=== PATIENT | male | born 1965 | race Caucasian/White ===

== ENCOUNTER 2020-04-11 07:43 | Outpatient (RCR) | payer MEDICARE, SELFPAY | END 2020-06-04 07:51 | disposition home or self-care (01) | LOC: ANHWOC 07:43 | PROVIDERS: PCP Emergency Medicine; Visit Provider Emergency Medicine | DX: I87.2 Venous insufficiency (chronic) (peripheral) (principal); S81.811D Laceration without foreign body, right lower leg, subsequent encounter | CPT/HCPCS: 99201; 99212; G0463 ==

== ENCOUNTER 2020-04-11 10:03 | Inpatient (IN) | payer MEDICARE, SELFPAY ==
--- NOTE | ~2020-04-11 | XR_ITS ---
EXAMINATION: XR foot LT min 3V EXAM DATE: 04/11/2020 11:34 INDICATION: Left foot swelling. TECHNIQUE: Left foot dorsoplantar, lateral and oblique projections obtained and reviewed. There is n o prior study for comparison. FINDINGS: Left metatarsal bones unremarkable. There are small calcaneal spurs. There are no acute fractures or dislocations identified. There is no subcutaneous gas. There is soft tissue swelling ov er the foot. There are no radiopaque foreign bodies. There are no bony erosions identified. IMPRESSION: 1. XR foot LT min 3V exam without acute osseous findings. 2. Soft tissue swelling. Reviewed, dictated and finalized at location B.
--- NOTE | ~2020-04-11 | XR_ITS ---
EXAMINATION: XR chest 1V portable EXAM DATE: 04/11/2020 11:34 INDICATION: Left foot swelling. Altered mental status. TECHNIQUE: Portable AP frontal chest x-ray was obtained. Comparison is made to prior examination from 04/13/2018. FINDINGS: The cardiomediastinal silhouette is prominent but magnified on this AP technique. Low lung volume with some pulmonary vascular and some indistinct reticulation, possible mild bilateral perihil ar edema or infection. Please clinically correlate. No pneumothorax or pleural effusion. There are no osseous abnormalities identified. IMPRESSION: Low lung volume, but possible mild bilateral edema or pneumonia. Reviewed, dictated and finalized at location B.
[2020-04-11 10:07] VITALS: BP 110/69; PULSE 88; RESP 16; TEMP 36.1; O2SAT 94
[2020-04-11] MEDS: SODIUM CHLORIDE 0.9% IV 1,000 ML 999 ML IV CONT ×3 (11:03→13:50)
--- NOTE | 2020-04-11 11:04 | ED.GENADULT ---
HPI - General Adult General Chief complaint: Skin/Abscess/Foreign Body Stated complaint: L LEG CELLULITIS FROM WOUND CARE CENTER Time Seen by Provider: 04/11/20 10:12 Source: patient Mode of arrival: ambulatory Limitations: no limitations History of Present Illness HPI narrative: Patient is a 54-year-old male who presents from wound center for evaluation of cellulitic left leg family notes that the redness and swelling began yesterday patient with chronic wounds to the bilateral lower extremities patient denies any pain family notes he is taking p.o. narcotics patient did fall this morning but denies any injuries related to the fall patient has had similar occurrences in the past followed by wound care family denies any current antibiotic use. Patient on arrival in the room in no distress Related Data Home Medications Medication Instructions Recorded Confirmed Eliquis 5 mg PO BID 09/23/19 09/23/19 alprazolam 1 mg PO BID PRN 09/23/19 09/23/19 aspirin 81 mg PO DAILY 09/23/19 09/23/19 carbidopa-levodopa 1 tablet PO TID 09/23/19 09/23/19 divalproex 250 mg PO DAILY 09/23/19 09/23/19 escitalopram oxalate 20 mg PO DAILY 09/23/19 09/23/19 furosemide 40 mg PO BID 09/23/19 09/23/19 gabapentin 600 mg PO TID 09/23/19 09/23/19 levetiracetam 750 mg PO BID 09/23/19 09/23/19 lovastatin 20 mg PO DAILY 09/23/19 09/23/19 oxycodone [OxyContin] 15 mg PO BID 09/23/19 09/23/19 oxycodone-acetaminophen 1 tablet PO Q6H PRN 09/23/19 09/23/19 pentoxifylline 400 mg PO BID 09/23/19 09/23/19 spironolactone 50 mg PO DAILY 09/23/19 09/23/19 topiramate 25 mg PO BID 09/23/19 09/23/19 Allergies Allergy/AdvReac Type Severity Reaction Status Date / Time No Known Allergies Allergy Verified 09/23/19 14:30 Review of Systems Review of Systems: All systems reviewed & are unremarkable except as noted in HPI and below PMFSH Past Medical History Medical History Anxiety Arthritis Dementia Depression History of DVT (deep vein thrombosis) 04/2019 Myocardial infarction Parkinson disease Seizures Wrist fracture Surgical History Surgical History History of tonsillectomy Social History Social History Smoking packs per day: 1 Smoking cigarettes per day: 20.0 Years smoked: 5 Smoking pack-years: 5.00 Smoking status: Former smoker Tobacco type: cigarettes Second hand tobacco smoke exposure: Yes Alcohol intake: former Substance use: never Substance use type: does not use Gender identity (if verbalized by the patient): Male Spiritual care concerns: No Agree to blood products: Yes Exam Narrative: Exam Narrative: GENERAL: Ill-appearing, obese, and in no acute distress. HEAD: Normocephalic, atraumatic. EYES: PERRLA and EOMI. ENT: Nares clear, no rhinorrhea or epistaxis. Mucous membranes moist. Oropharynx without tonsillar hypertrophy exudate or other lesions. CHEST: Clear to auscultation. No respiratory distress. No wheezes rales or rhonchi HEART: Regular rate and rhythm. No murmur heard. Normal peripheral pulses. ABDOMEN: Soft, nontender, nondistended EXTREMITIES: Normal range of motion. 2+ edema lower extremities SKIN: Warm, dry, and with cellulitic left lower extremity from the foot up to just below the knee that is circumferential erythematous and warm to touch there is some weeping and cracked skin on the feet. NEURO: No focal deficits. Alert and oriented x3. Neurovascularly intact. Capillary refill less than 2 seconds PSYCH: Normal mood and affect. Course Course Emergency Course: Patient in the room at this time resting comfortably with blood work drawn for sepsis given IV antibiotic and fluids in the emergency department and will be placed in hospital to the hospitalist service for continued IV therapy for cellulitis Consultations Consultation #1: Disc
[2020-04-11 11:13] LABS: Basophils Absolute Auto 0.1 K/mm3 (0.0-0.1); Basophils Percent Auto 0.4 % (0.2-1.2); Eosinophils Percent Auto 0.2 % (0-4.4); Hematocrit 37.8 % (42.0-52.0); Hemoglobin 11.7 g/dL (14.0-18.0); Immature Granulocyte Absolute 0.28 K/mm3 (0.00-0.031); Immature Granulocyte Percent A 2.2 % (0-0.5); Lymphocytes Absolute Auto 1.49 K/mm3 (0.9-3.2); Lymphocytes Percent Auto 11.9 % (18.3-44.2); Mean Corpuscular Volume 100.3 fl (80-100); Mean Platelet Volume 8.6 fl (7.4-10.4); Monocytes Absolute Auto 0.9 K/mm3 (0.1-0.6); Monocytes Percent Auto 6.9 % (2.6-8.5); Neutrophils Absolute Auto 9.8 K/mm3 (1.3-6.7); Neutrophils Percent Auto 78.4 % (45.5-73.1); Platelet Count Result 167 k/mm3 (150-375); Red Blood Count 3.77 M/mm3 (4.6-6.20); Red Cell Distribution Width 13.6 % (11.5-14.5); White Blood Count 12.5 K/mm3 (4.5-10.0)
[2020-04-11 11:20] LABS: INR 1.7; Prothrombin Time 19.7 Seconds (11.1-14.7)
[2020-04-11 11:21] LABS: Lactic Acid Reflex 2.6 mmol/L (0.7-2.1); Magnesium 2.2 mg/dL (1.6-2.3); Partial Thromboplastin Time 33.2 SECONDS (22.3-36.8); Phosphorus 2.8 mg/dL (2.5-4.5)
[2020-04-11 11:26] LABS: Beta-Hydroxybutyrate/Acetoacetate 0.05 mmol/L (0.02-0.27)
[2020-04-11 11:54] LABS: Alanine Aminotransferase 9 U/L (4-50); Albumin Level 3.8 g/dL (3.5-5.1); Alkaline Phosphatase 163 U/L (38-126); Aspartate Amino Transferase 23 U/L (17-59); Blood Urea Nitrogen 15 mg/dL (9-20); CRP 25.2 mg/dL (<1.0); Calcium 8.9 mg/dL (8.4-10.2); Carbon Dioxide 35 mmol/L (22-30); Chloride 90 mmol/L (98-107); Estimated CRCL calculation 97 ml/min; Estimated Glomerular Filt Rate > 60; Glucose 131 mg/dL (75-110); Potassium 3.6 mmol/L (3.4-5.0); Sodium 133 mmol/L (137-145)
[2020-04-11 13:43] VITALS: BP 96/74; PULSE 89; RESP 16
--- NOTE | 2020-04-11 13:47 | ADMGEN ---
This patient, Giuseppe Santana, was admitted to Medical Room 341-01. Patient/family oriented to hospital policies and general routines including ID bracelet, bed and alarms, visiting hours, pain management, procedures, bathroom and other care routines, personal items, smoking policy, room service/diet, and visiting hours. Valuables list has been completed. Information on how to activate the Rapid Response Team has been discussed. Patient/Family are encouraged to report perceived risks to care and to ask questions if they do not understand what they are told or what they should do.
[2020-04-11 13:56] VITALS: BP 93/53; PULSE 84; RESP 18; TEMP 36.8; O2SAT 92; BMI 33.3
[2020-04-11 14:03] LABS: Reflex Lactic Acid Yes or No Add Lactic
[2020-04-11 14:46] LABS: Lactic Acid 1.6 mmol/L (0.7-2.1)
[2020-04-11] MEDS: LACTATED RINGERS 1,000 ML 125 ML IV CONT (15:01)
[2020-04-11 17:11] LABS: Add Urine Microscopic? YES; Appearance Urine Clear (Clear); Bacteria Urine Trace /hpf; Bilirubin Urine Negative (Negative); Blood Urine Negative (Negative); Color Urine Yellow (Yellow); Glucose Urine UA Negative (Negative); Hyaline Casts Urine 15-19 /lpf; Ketones Urine Negative (Negative); Leukocyte Esterase Ur Negative LEU/UL (Negative); Mucus Urine Rare /lpf; Nitrate Urine Negative (Negative); Protein Urine Negative (Negative); Specific Grav Ur 1.017 (1.001-1.035); Squamous Epithelial Cell Urine Occasional /hpf (Few); WBC Urine 0-3 /hpf
--- NOTE | 2020-04-11 20:00 | PM.IMHP ---
H&P: HPI History of Present Illness Chief complaint: Suspected left leg cellulitis. 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 He has chronic lower extremity wounds and today his wound nurse felt that his left leg was likely infected due to worsening edema and erythema and he is being admitted for treatment of cellulitis. At the time of my evaluation, the patient himself feels in his usual state of health and has no complaints except for his chronic back pain and he is asking for his oxycodone. He does mention that earlier today he fell down on to his knees but he sustained no injuries, specifically denying head trauma and loss of consciousness. He states it was purely a mechanical fall. A denture waxer that comes to the home each day a thought that perhaps he seemed a bit more confused than his baseline and was not following commands, but he seems at his baseline at this time. He denies fever, chills, and sweats. No nausea or vomiting. He denies chest pain shortness of breath. Review of Systems Review of Systems: Narrative: Twelve systems were reviewed with pertinent positives and negatives as per HPI. He denies cold and flu symptoms. No cough or shortness of breath. No recent travel or sick contacts. Except as documented, all other systems were reviewed and are negative. [facility] Past Medical History Medical History (Updated 04/11/20 @ 22:27 by Nirmala Barone PA-C) Arthritis Chronic pain syndrome Chronic seasonal allergic rhinitis Current use of nursing home anticoagulation Deep vein thrombosis of right lower limb (~04/2019) Extensive, occlusive DVT from the right common femoral vein through the peroneal and posterior tibial veins. Attempted angioplasty was unsuccessful and he was transferred to [place] for further and intervention. Now on long-term anticoagulation with Eliquis. Dementia Depression with anxiety Impetigo (~09/2019) Left thyroid nodule Noted on CT in April 2019. 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 Parkinson disease Seizures Traumatic brain injury Wrist fracture Surgical History Surgical History (Updated 04/11/20 @ 15:57 by Nirmala Barone PA-C) History of mastoidectomy With resultant mild, chronic hearing loss. History of tonsillectomy Family History Family History Mother Cervical cancer Skin cancer Social History Social History (Updated 04/11/20 @ 22:15 by Nirmala Barone PA-C) Social History: The patient lives in his own home in [place]. He ambulates with a walker and has a friend come to the house daily to help with chores, etc. He smoked just about a pack of cigarettes per day since he was a teenager and now smokes maybe a few cigarettes a day. No alcohol or illicit substance use. He designates his friend, Maryse Garcia, as his surrogate decision maker and he wishes to be a full code. Smoking packs per day: 1 Smoking cigarettes per day: 20.0 Second hand tobacco smoke exposure: Yes Gender identity (if verbalized by the patient): Male Spiritual care concerns: No Agree to blood products: Yes Meds Home Medications and Allergies Home Medications Medication Instructions Recorded Confirmed Type Eliquis 5 mg PO BID 09/23/19 04/11/20 History alprazolam 1 mg PO BID PRN 09/23/19 04/11/20 History aspirin 81 mg PO DAILY 09/23/19 04/11/20 History carbidopa-levodopa 1 tablet PO TID 09/23/19 04/11/20 History divalpr
[2020-04-11 22:00] VITALS: BP 100/58; PULSE 73; RESP 18; TEMP 37.3; O2SAT 96
[2020-04-11] MEDS: levETIRAcetam 250 MG TABLET 750 MG PO (22:35)
[2020-04-11] MEDS: CARBIDOPA/LEVODOPA 25/250 MG TABLET 1 TABLET PO (22:36)
[2020-04-11] MEDS: LOVASTATIN 20 MG TABLET PO (22:36)
[2020-04-11] MEDS: TOPIRAMATE 25 MG TABLET PO (22:36)
[2020-04-11] MEDS: GABAPENTIN 300 MG CAPSULE PO (22:37)
[2020-04-11] MEDS: PENTOXIFYLLINE 400 MG TABCR PO (22:37)
[2020-04-11] MEDS: ALPRAZolam 0.5 MG TABLET 1 MG PO (22:37)
[2020-04-11] MEDS: APIXABAN 5 MG TABLET PO (22:37)
[2020-04-11] MEDS: DIVALPROEX SODIUM 250 MG TABEC PO (22:37)
[2020-04-11] MEDS: FAMOTIDINE 20 MG/2 ML VIAL IV PUSH (22:38)
[2020-04-11] MEDS: oxyCODONE/ACETAMINOPHEN 5-325 MG TABLET 1 TABLET PO (22:38)
[2020-04-11 23:00] VITALS: PULSE 73; RESP 18; O2SAT 96
[2020-04-11 23:10] LABS: Blood Urea Nitrogen 12 mg/dL (9-20); Calcium 8.3 mg/dL (8.4-10.2); Carbon Dioxide 33 mmol/L (22-30); Chloride 97 mmol/L (98-107); Estimated CRCL calculation 115 ml/min; Estimated Glomerular Filt Rate > 60; Glucose 87 mg/dL (75-110); Potassium 3.5 mmol/L (3.4-5.0); Sodium 136 mmol/L (137-145)
[2020-04-12 05:36] LABS: Basophils Absolute Auto 0.1 K/mm3 (0.0-0.1); Basophils Percent Auto 0.6 % (0.2-1.2); Eosinophils Absolute Auto 0.1 K/mm3 (0-0.3); Eosinophils Percent Auto 1.3 % (0-4.4); Hematocrit 35.8 % (42.0-52.0); Hemoglobin 10.7 g/dL (14.0-18.0); Immature Granulocyte Absolute 0.23 K/mm3 (0.00-0.031); Immature Granulocyte Percent A 2.5 % (0-0.5); Lymphocytes Absolute Auto 2.07 K/mm3 (0.9-3.2); Lymphocytes Percent Auto 22.1 % (18.3-44.2); Mean Corpuscular HGB Conc 29.9 g/dl (32-36); Mean Corpuscular Hemoglobin 30.4 pg (26-34); Mean Corpuscular Volume 101.7 fl (80-100); Mean Platelet Volume 8.8 fl (7.4-10.4); Monocytes Absolute Auto 0.8 K/mm3 (0.1-0.6); Monocytes Percent Auto 8.5 % (2.6-8.5); Neutrophils Absolute Auto 6.1 K/mm3 (1.3-6.7); Platelet Count Result 154 k/mm3 (150-375); Red Blood Count 3.52 M/mm3 (4.6-6.20); Red Cell Distribution Width 13.9 % (11.5-14.5); White Blood Count 9.4 K/mm3 (4.5-10.0)
[2020-04-12 05:49] LABS: Blood Urea Nitrogen 10 mg/dL (9-20); Calcium 8.2 mg/dL (8.4-10.2); Carbon Dioxide 31 mmol/L (22-30); Chloride 96 mmol/L (98-107); Estimated CRCL calculation 129 ml/min; Estimated Glomerular Filt Rate > 60; Glucose 107 mg/dL (75-110); Potassium 3.6 mmol/L (3.4-5.0); Sodium 133 mmol/L (137-145)
[2020-04-12 06:00] VITALS: BP 99/57; PULSE 63; RESP 18; TEMP 36.2; O2SAT 98
[2020-04-12 06:09] LABS: Valproic Acid 53.4 ug/mL (50-120)
[2020-04-12] MEDS: ASPIRIN 81 MG CHEWABLE TABLET PO (08:43)
[2020-04-12] MEDS: GABAPENTIN 300 MG CAPSULE PO ×3 (08:43→17:00)
[2020-04-12] MEDS: ESCITALOPRAM OXALATE 10 MG TABLET 20 MG PO (08:43)
[2020-04-12] MEDS: APIXABAN 5 MG TABLET PO ×2 (08:43→17:00)
[2020-04-12] MEDS: DIVALPROEX SODIUM 250 MG TABEC PO ×2 (08:43→17:00)
[2020-04-12] MEDS: levETIRAcetam 250 MG TABLET 750 MG PO ×2 (08:43→17:00)
[2020-04-12] MEDS: MUPIROCIN 2% OINT 22 GM TUBE 1 APPLIC TOPICAL ×2 (08:43→20:48)
[2020-04-12] MEDS: PENTOXIFYLLINE 400 MG TABCR PO ×2 (08:43→17:00)
[2020-04-12] MEDS: FAMOTIDINE 20 MG/2 ML VIAL IV PUSH ×2 (08:44→20:48)
[2020-04-12] MEDS: CARBIDOPA/LEVODOPA 25/250 MG TABLET 1 TABLET PO ×3 (08:44→17:00)
--- NOTE | 2020-04-12 13:00 | P.PNIM_ITS ---
Progress Note: A&P Assessment and Plan (1) Sepsis: Code(s): A41.9 - Sepsis, unspecified organism Status: Acute Assessment and Plan: Present on admission and supported by leukocytosis and elevated lactic acid le katarina. Leukocytosis resolved today; lactic acid resolved normalized with IVF. Blood pressures are also a bit soft, but it appears that it is not unusual for them to be in the low 100 systolic. 99 sys this morning. Blood cultures negative to date * Plan to treat cellulitis with antibiotics as below (2) Left leg cellulitis: Code(s): L03.116 - Cellulitis of left lower limb Status: Acute Assessment and Plan: He has been started on Ancef and vancomycin. Wound/drainage cultures pending. Clinically this appear to be improving with description from admission H&P. Patient agrees this is improving * Contineu IV ancef and vanc; await culture results. * Encourage elevation of left leg. * Wound nurse consult appreciated. (3) Hyponatremia: Code(s): E87.1 - Hypo-osmolality and hyponatremia Status: Acute Assessment and Plan: He received 2 liters IV fluids in the emergency department. Na 133 today, sligh tly lower. 136 in September * Will trend tomorrow * Encourage PO intake * Will hold furosemide and spironolactone at this time. (4) Dementia: Code(s): F03.90 - Unspecified dementia without behavioral disturbance Status: Acute Assessment and Plan: * Related to history of traumatic brain injury and Parkinson. * He seems to be at baseline. (5) Parkinson disease: Code(s): G20 - Parkinson's disease Status: Acute Assessment and Plan: * Continue carbidopa-levodopa. (6) Seizures: Code(s): R56.9 - Unspecified convulsions Status: Acute Assessment and Plan: * Continue levetiracetam and divalproex. (7) Chronic pain syndrome: Code(s): G89.4 - Chronic pain syndrome Status: Acute Assessment and Plan: * Continue oxycodone and gabapentin. (8) Depression with anxiety: Code(s): F41.8 - Other specified anxiety disorders Status: Acute Assessment and Plan: * Continue escitalopram and alprazolam as needed. (9) Current use of rn long term care anticoagulation: Code(s): Z79.01 - rn long term care (current) use of anticoagulants Status: Acute Assessment and Plan: * On Eliquis for history of DVT. 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 Patient states he is feeling well today. He thinks that his swelling and redness has improved today. Otherwise has no complaints. Denies f/c/s, headaches, dizziness, lightheadedness, cp/palpitations, sob/cough, n/v/d/c, abd pain, changes in BMs, dysuria, hematuria, cloudy urine Review of Systems
--- NOTE | 2020-04-12 13:00 | PM.IMPN ---
Progress Note: A&P Assessment and Plan (1) Sepsis: Code(s): A41.9 - Sepsis, unspecified organism Status: Acute Assessment and Plan: Present on admission and supported by leukocytosis and elevated lactic acid level. Leukocytosis resolved today; lactic acid resolved normalized with IVF. Blood pressures are also a bit soft, but it appears that it is not unusual for them to be in the low 100 systolic. 99 sys this morning. Blood cultures negative to date Plan to treat cellulitis with antibiotics as below (2) Left leg cellulitis: Code(s): L03.116 - Cellulitis of left lower limb Status: Acute Assessment and Plan: He has been started on Ancef and vancomycin. Wound/drainage cultures pending. Clinically this appear to be improving with description from admission H&P. Patient agrees this is improving Contineu IV ancef and vanc; await culture results. Encourage elevation of left leg. Wound nurse consult appreciated. (3) Hyponatremia: Code(s): E87.1 - Hypo-osmolality and hyponatremia Status: Acute Assessment and Plan: He received 2 liters IV fluids in the emergency department. Na 133 today, slightly lower. 136 in September Will trend tomorrow Encourage PO intake Will hold furosemide and spironolactone at this time. (4) Dementia: Code(s): F03.90 - Unspecified dementia without behavioral disturbance Status: Acute Assessment and Plan: Related to history of traumatic brain injury and Parkinson. He seems to be at baseline. (5) Parkinson disease: Code(s): G20 - Parkinson's disease Status: Acute Assessment and Plan: Continue carbidopa-levodopa. (6) Seizures: Code(s): R56.9 - Unspecified convulsions Status: Acute Assessment and Plan: Continue levetiracetam and divalproex. (7) Chronic pain syndrome: Code(s): G89.4 - Chronic pain syndrome Status: Acute Assessment and Plan: Continue oxycodone and gabapentin. (8) Depression with anxiety: Code(s): F41.8 - Other specified anxiety disorders Status: Acute Assessment and Plan: Continue escitalopram and alprazolam as needed. (9) Current use of half-way anticoagulation: Code(s): Z79.01 - [facility] (current) use of anticoagulants Status: Acute Assessment and Plan: On Eliquis for history of DVT. 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 Patient states he is feeling well today. He thinks that his swelling and redness has improved today. Otherwise has no complaints. Denies f/c/s, headaches, dizziness, lightheadedness, cp/palpitations, sob/cough, n/v/d/c, abd pain, changes in BMs, dysuria, hematuria, cloudy urine Review of Systems Review of Systems: All systems reviewed & are unremarkable except as noted in HPI and below Exam Narrative: Exam Narrative: Patient is lying in semi-gutirerez's position with right leg hanging off the bed Const: General: cooperative, comfortable, no acute distress, well developed, alert and ill appearing chronically Nutritional Appearance: well nourished and obese Orientation/consciousness: patient oriented x3 HENMT:
[2020-04-12 14:00] VITALS: BP 115/72; PULSE 66; RESP 18; TEMP 36.1; O2SAT 100
[2020-04-12] MEDS: TOPIRAMATE 25 MG TABLET PO (17:00)
[2020-04-12] MEDS: LOVASTATIN 20 MG TABLET PO (17:00)
[2020-04-12 21:00] VITALS: BP 101/76; PULSE 72; RESP 14; TEMP 36.1; O2SAT 100
[2020-04-12] MEDS: ALPRAZolam 0.5 MG TABLET 1 MG PO (22:05)
[2020-04-13 05:31] VITALS: BP 96/58; PULSE 60; RESP 14; TEMP 36.3; O2SAT 97
[2020-04-13 06:26] LABS: Hematocrit 33.1 % (42.0-52.0); Hemoglobin 10.1 g/dL (14.0-18.0); Mean Corpuscular HGB Conc 30.5 g/dl (32-36); Mean Corpuscular Hemoglobin 30.9 pg (26-34); Mean Corpuscular Volume 101.2 fl (80-100); Mean Platelet Volume 8.9 fl (7.4-10.4); Platelet Count Result 139 k/mm3 (150-375); Red Blood Count 3.27 M/mm3 (4.6-6.20); Red Cell Distribution Width 13.9 % (11.5-14.5); White Blood Count 6.7 K/mm3 (4.5-10.0)
[2020-04-13 06:46] LABS: Blood Urea Nitrogen 11 mg/dL (9-20); Carbon Dioxide 26 mmol/L (22-30); Chloride 101 mmol/L (98-107); Estimated CRCL calculation 129 ml/min; Estimated Glomerular Filt Rate > 60; Glucose 137 mg/dL (75-110); Potassium 3.8 mmol/L (3.4-5.0); Sodium 134 mmol/L (137-145)
[2020-04-13] MEDS: ASPIRIN 81 MG CHEWABLE TABLET PO (09:47)
[2020-04-13] MEDS: APIXABAN 5 MG TABLET PO ×2 (09:47→17:34)
[2020-04-13] MEDS: ESCITALOPRAM OXALATE 10 MG TABLET 20 MG PO (09:48)
[2020-04-13] MEDS: CARBIDOPA/LEVODOPA 25/250 MG TABLET 1 TABLET PO ×3 (09:48→17:34)
[2020-04-13] MEDS: DIVALPROEX SODIUM 250 MG TABEC PO ×2 (09:48→17:34)
[2020-04-13] MEDS: levETIRAcetam 250 MG TABLET 750 MG PO ×2 (09:48→17:34)
[2020-04-13] MEDS: FAMOTIDINE 20 MG/2 ML VIAL IV PUSH ×2 (09:48→20:20)
[2020-04-13] MEDS: GABAPENTIN 300 MG CAPSULE PO ×3 (09:48→17:34)
[2020-04-13] MEDS: MUPIROCIN 2% OINT 22 GM TUBE 1 APPLIC TOPICAL ×2 (09:49→20:20)
[2020-04-13] MEDS: PENTOXIFYLLINE 400 MG TABCR PO ×2 (09:49→17:35)
[2020-04-13 10:03] LABS: Vancomycin Trough 14.8 ug/mL (10.0-20.0)
--- NOTE | 2020-04-13 14:30 | P.PNIM_ITS ---
Progress Note: A&P Assessment and Plan (1) Sepsis: Code(s): A41.9 - Sepsis, unspecified organism Status: Acute Assessment and Plan: Present on admission and supported by leukocytosis and elevated lactic acid le katarina. Leukocytosis resolved yesterday; lactic acid resolved normalized with IVF. Blood pressures are also a bit soft, but it appears that it is not unusual for them to be in the low 100 systolic. 96 sys this morning. Blood cultures negative to date * Plan to treat cellulitis with antibiotics as below (2) Left leg cellulitis: Code(s): L03.116 - Cellulitis of left lower limb Status: Acute Assessment and Plan: He has been started on Ancef and vancomycin. Wound/drainage cultures pending. Clinically this appear to be improving on exam compared to yesterday, but still significant erythema/warmth to the left lower leg. * Contineu IV ancef and vanc; await culture results. * Encourage elevation of left leg. * Wound nurse consult appreciated. (3) Hyponatremia: Code(s): E87.1 - Hypo-osmolality and hyponatremia Status: Acute Assessment and Plan: He received 2 liters IV fluids in the emergency department. Na 134 today, improved. 136 in September * Will trend tomorrow * Encourage PO intake * Will hold furosemide and spironolactone at this time. (4) Dementia: Code(s): F03.90 - Unspecified dementia without behavioral disturbance Status: Acute Assessment and Plan: * Related to history of traumatic brain injury and Parkinson. * He seems to be at baseline. (5) Parkinson disease: Code(s): G20 - Parkinson's disease Status: Acute Assessment and Plan: * Continue carbidopa-levodopa. (6) Seizures: Code(s): R56.9 - Unspecified convulsions Status: Acute Assessment and Plan: * Continue levetiracetam and divalproex. (7) Chronic pain syndrome: Code(s): G89.4 - Chronic pain syndrome Status: Acute Assessment and Plan: * Continue oxycodone and gabapentin. (8) Depression with anxiety: Code(s): F41.8 - Other specified anxiety disorders Status: Acute Assessment and Plan: * Continue escitalopram and alprazolam as needed. (9) Current use of [facility] anticoagulation: Code(s): Z79.01 - halfway (current) use of anticoagulants Status: Acute Assessment and Plan: * On Eliquis for history of DVT. Subjective Date/time seen: 04/13/20 14:30 Interval history: Patient is a 54 yo M with history of traumatic brain injury r esulting in premature Parkinson's and dementia, seizure disorder, DVT on long- term anticoagulation, depression, anxiety, and chronic pain syndrome on long- term opioid therapy who is here for treatment of left lower leg cellulitis. Patient states he is feeling well today. He thinks that his swelling and redness has improved again today; pain improved in LLE. He is wishing to leave but is agreeable to staying after explaining the importance of IV antibiotics. Otherwise has no complaints. Denies f/c/s, headaches, dizz
--- NOTE | 2020-04-13 14:30 | PM.IMPN ---
Progress Note: A&P Assessment and Plan (1) Sepsis: Code(s): A41.9 - Sepsis, unspecified organism Status: Acute Assessment and Plan: Present on admission and supported by leukocytosis and elevated lactic acid level. Leukocytosis resolved yesterday; lactic acid resolved normalized with IVF. Blood pressures are also a bit soft, but it appears that it is not unusual for them to be in the low 100 systolic. 96 sys this morning. Blood cultures negative to date Plan to treat cellulitis with antibiotics as below (2) Left leg cellulitis: Code(s): L03.116 - Cellulitis of left lower limb Status: Acute Assessment and Plan: He has been started on Ancef and vancomycin. Wound/drainage cultures pending. Clinically this appear to be improving on exam compared to yesterday, but still significant erythema/warmth to the left lower leg. Contineu IV ancef and vanc; await culture results. Encourage elevation of left leg. Wound nurse consult appreciated. (3) Hyponatremia: Code(s): E87.1 - Hypo-osmolality and hyponatremia Status: Acute Assessment and Plan: He received 2 liters IV fluids in the emergency department. Na 134 today, improved. 136 in September Will trend tomorrow Encourage PO intake Will hold furosemide and spironolactone at this time. (4) Dementia: Code(s): F03.90 - Unspecified dementia without behavioral disturbance Status: Acute Assessment and Plan: Related to history of traumatic brain injury and Parkinson. He seems to be at baseline. (5) Parkinson disease: Code(s): G20 - Parkinson's disease Status: Acute Assessment and Plan: Continue carbidopa-levodopa. (6) Seizures: Code(s): R56.9 - Unspecified convulsions Status: Acute Assessment and Plan: Continue levetiracetam and divalproex. (7) Chronic pain syndrome: Code(s): G89.4 - Chronic pain syndrome Status: Acute Assessment and Plan: Continue oxycodone and gabapentin. (8) Depression with anxiety: Code(s): F41.8 - Other specified anxiety disorders Status: Acute Assessment and Plan: Continue escitalopram and alprazolam as needed. (9) Current use of [facility] anticoagulation: Code(s): Z79.01 - intermediate (current) use of anticoagulants Status: Acute Assessment and Plan: On Eliquis for history of DVT. 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 Patient states he is feeling well today. He thinks that his swelling and redness has improved again today; pain improved in LLE. He is wishing to leave but is agreeable to staying after explaining the importance of IV antibiotics. Otherwise has no complaints. Denies f/c/s, headaches, dizziness, lightheadedness, cp/palpitations, sob/cough, n/v/d/c, abd pain, changes in BMs, dysuria, hematuria, cloudy urine Review of Systems Review of Systems: All systems reviewed & are unremarkable except as noted in HPI and below Exam Narrative: Exam Narrative: Patient is lying in semi-gutierrez's position Const: General: cooperative, comfortable, no acute distress, well developed, alert and ill appearing chron
[2020-04-13] MEDS: ALPRAZolam 0.5 MG TABLET 1 MG PO (14:51)
[2020-04-13] MEDS: oxyCODONE/ACETAMINOPHEN 5-325 MG TABLET 1 TABLET PO ×2 (14:51→22:57)
[2020-04-13 15:12] VITALS: BP 108/61; PULSE 68; RESP 14; TEMP 36.8; O2SAT 98
[2020-04-13] MEDS: LOVASTATIN 20 MG TABLET PO (17:35)
[2020-04-13] MEDS: TOPIRAMATE 25 MG TABLET PO (17:35)
[2020-04-13 20:15] VITALS: BP 113/70; PULSE 62; RESP 14; TEMP 36.5; O2SAT 98
[2020-04-14 04:41] VITALS: BP 111/75; PULSE 60; RESP 16; TEMP 36.4; O2SAT 100
[2020-04-14] MEDS: oxyCODONE/ACETAMINOPHEN 5-325 MG TABLET 1 TABLET PO (06:02)
[2020-04-14] MEDS: ALPRAZolam 0.5 MG TABLET 1 MG PO (06:02)
[2020-04-14 06:54] LABS: Hematocrit 37.2 % (42.0-52.0); Hemoglobin 11.4 g/dL (14.0-18.0); Mean Corpuscular HGB Conc 30.6 g/dl (32-36); Mean Corpuscular Volume 101.1 fl (80-100); Mean Platelet Volume 8.6 fl (7.4-10.4); Platelet Count Result 169 k/mm3 (150-375); Red Blood Count 3.68 M/mm3 (4.6-6.20); White Blood Count 6.2 K/mm3 (4.5-10.0)
[2020-04-14 07:21] LABS: Blood Urea Nitrogen 13 mg/dL (9-20); CRP 4.6 mg/dL (<1.0); Calcium 8.2 mg/dL (8.4-10.2); Carbon Dioxide 29 mmol/L (22-30); Chloride 100 mmol/L (98-107); Estimated CRCL calculation 129 ml/min; Estimated Glomerular Filt Rate > 60; Glucose 106 mg/dL (75-110); Magnesium 2.1 mg/dL (1.6-2.3); Sodium 134 mmol/L (137-145)
[2020-04-14] MEDS: APIXABAN 5 MG TABLET PO (08:15)
[2020-04-14] MEDS: levETIRAcetam 250 MG TABLET 750 MG PO (08:15)
[2020-04-14] MEDS: ESCITALOPRAM OXALATE 10 MG TABLET 20 MG PO (08:15)
[2020-04-14] MEDS: CARBIDOPA/LEVODOPA 25/250 MG TABLET 1 TABLET PO (08:15)
[2020-04-14] MEDS: GABAPENTIN 300 MG CAPSULE PO (08:16)
[2020-04-14] MEDS: DIVALPROEX SODIUM 250 MG TABEC PO (08:16)
[2020-04-14] MEDS: ASPIRIN 81 MG CHEWABLE TABLET PO (08:16)
[2020-04-14] MEDS: FAMOTIDINE 20 MG/2 ML VIAL IV PUSH (08:16)
[2020-04-14] MEDS: PENTOXIFYLLINE 400 MG TABCR PO (08:16)
[2020-04-14 08:36] VITALS: PULSE 60; RESP 16; O2SAT 100
--- NOTE | 2020-04-14 09:57 | P.DS_ITS ---
DS: Admitting Diagnosis Admitting Diagnosis Admitting Diagnosis: Sepsis, unspecified organism DS: Discharge Diagnosis Discharge Diagnosis (1) Sepsis: Code(s): A41.9 - Sepsis, unspecified organism Status: Acute Assessment and Plan: Present on admission and supported by leukocytosis and elevated lactic acid lev el. Leukocytosis resolved on 04/12; lactic acid resolved normalized with IVF. Blood pressures are also a bit soft, but it appears that it is not unusual for them to be in the low 100 systolic. 111 sys this morning. Blood cultures negative to date. Called [facility] and aerobic bottle grew normal skin ralph and was finalized and anaerobic bottle is negative to date * Plan to treat cellulitis with antibiotics as below (2) Left leg cellulitis: Code(s): L03.116 - Cellulitis of left lower limb Status: Acute Assessment and Plan: He has been started on Ancef and vancomycin. Wound/drainage cultures pending. Clinically this appear to be improving on exam compared to previous days. * Discharge today with f/u with PCP in 1-2 weeks * IV ancef and vanc during stay * Will do Keflex and doxy through 04/20 given extent of cellulitis * Encourage elevation of left leg. * Wound nurse consult appreciated. Follow up with WC (3) Hyponatremia: Code(s): E87.1 - Hypo-osmolality and hyponatremia Status: Acute Assessment and Plan: He received 2 liters IV fluids in the emergency department. Na 134 today, stable. 136 in September * BMP in 1 week * Encourage PO intake * Will resume furosemide and spironolactone at discharge * F/u with PCP (4) Dementia: Code(s): F03.90 - Unspecified dementia without behavioral disturbance Status: Acute Assessment and Plan: * Related to history of traumatic brain injury and Parkinson. * He seems to be at baseline. (5) Parkinson disease: Code(s): G20 - Parkinson's disease Status: Acute Assessment and Plan: * Continue carbidopa-levodopa. (6) Seizures: Code(s): R56.9 - Unspecified convulsions Status: Acute Assessment and Plan: * Continue levetiracetam and divalproex. (7) Chronic pain syndrome: Code(s): G89.4 - Chronic pain syndrome Status: Acute Assessment and Plan: * Continue oxycodone and gabapentin. (8) Depression with anxiety: Code(s): F41.8 - Other specified anxiety disorders Status: Acute Assessment and Plan: * Continue escitalopram and alprazolam as needed. (9) Current use of half-way anticoagulation: Code(s): Z79.01 - long term care social worker (current) use of anticoagulants Status: Acute Assessment and Plan: * On Eliquis for history of DVT. 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
--- NOTE | 2020-04-14 09:57 | PM.DS ---
DS: Admitting Diagnosis Admitting Diagnosis Admitting Diagnosis: Sepsis, unspecified organism DS: Discharge Diagnosis Discharge Diagnosis (1) Sepsis: Code(s): A41.9 - Sepsis, unspecified organism Status: Acute Assessment and Plan: Present on admission and supported by leukocytosis and elevated lactic acid level. Leukocytosis resolved on 04/12; lactic acid resolved normalized with IVF. Blood pressures are also a bit soft, but it appears that it is not unusual for them to be in the low 100 systolic. 111 sys this morning. Blood cultures negative to date. Called [facility] and aerobic bottle grew normal skin ralph and was finalized and anaerobic bottle is negative to date Plan to treat cellulitis with antibiotics as below (2) Left leg cellulitis: Code(s): L03.116 - Cellulitis of left lower limb Status: Acute Assessment and Plan: He has been started on Ancef and vancomycin. Wound/drainage cultures pending. Clinically this appear to be improving on exam compared to previous days. Discharge today with f/u with PCP in 1-2 weeks IV ancef and vanc during stay Will do Keflex and doxy through 04/20 given extent of cellulitis Encourage elevation of left leg. Wound nurse consult appreciated. Follow up with WC (3) Hyponatremia: Code(s): E87.1 - Hypo-osmolality and hyponatremia Status: Acute Assessment and Plan: He received 2 liters IV fluids in the emergency department. Na 134 today, stable. 136 in September BMP in 1 week Encourage PO intake Will resume furosemide and spironolactone at discharge F/u with PCP (4) Dementia: Code(s): F03.90 - Unspecified dementia without behavioral disturbance Status: Acute Assessment and Plan: Related to history of traumatic brain injury and Parkinson. He seems to be at baseline. (5) Parkinson disease: Code(s): G20 - Parkinson's disease Status: Acute Assessment and Plan: Continue carbidopa-levodopa. (6) Seizures: Code(s): R56.9 - Unspecified convulsions Status: Acute Assessment and Plan: Continue levetiracetam and divalproex. (7) Chronic pain syndrome: Code(s): G89.4 - Chronic pain syndrome Status: Acute Assessment and Plan: Continue oxycodone and gabapentin. (8) Depression with anxiety: Code(s): F41.8 - Other specified anxiety disorders Status: Acute Assessment and Plan: Continue escitalopram and alprazolam as needed. 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 While in the ED patient was found to have left LE erythema/warmth compatible for cellulitis and was technically septic with leukocytosis and elevated lactic acid; he also had hyponatremia as well. Patient admitted under this setting. Please see H&P for further details. Presenting VS: Temp Pulse Resp BP Pulse Ox 97.0 F L
[2020-04-14] MEDS: MUPIROCIN 2% OINT 22 GM TUBE 1 APPLIC TOPICAL (10:14)
== END 2020-04-14 11:35 | disposition home or self-care (01) | DRG 602 ==
LOC: ANHED 12:04 → ANH3MED 12:36
PROVIDERS: Emergency Medicine Emergency Medical Services; Physician Assistant; Admitting Provider Family Medicine; Emergency Provider Emergency Medicine; PCP Emergency Medicine; Visit Provider Internal Medicine
DX: L03.116 Cellulitis of left lower limb (principal); A41.9 Sepsis, unspecified organism; E87.1 Hypo-osmolality and hyponatremia; Z87.820 Personal history of traumatic brain injury; G20 Parkinson's disease; F02.80 Dementia in other diseases classified elsewhere, unspecified severity, without behavioral disturbance, psychotic disturbance, mood disturbance, and anxiety; G40.909 Epilepsy, unspecified, not intractable, without status epilepticus; F41.8 Other specified anxiety disorders; G89.4 Chronic pain syndrome; Z79.01 Long term (current) use of anticoagulants; Z86.718 Personal history of other venous thrombosis and embolism; Z79.891 Long term (current) use of opiate analgesic; Z87.891 Personal history of nicotine dependence
CPT/HCPCS: 36415; 71045; 73630; 80048; 80053; 80164; 80202; 81001; 82010; 83605; 83735; 84100; 84443; 85025; 85027; 85610; 85730; 86140; 87040; 87070; 87075; 87205; 96361; 96365; 96366; 96367; 96375; 96376; 99201; 99285; A9270; G0378; G0463; J0690; J2543; J3370; J7030; J7120

== ENCOUNTER 2020-04-26 13:17 | Outpatient (CLI) | payer MEDICARE, SELFPAY ==
--- NOTE | ~2020-04-26 | MR_ITS ---
EXAMINATION: MR brain/brain stem wo/w con DATE: 04/26/2020 14:36 INDICATION: Dementia. TECHNIQUE: Magnetic resonance imaging (MRI) of the brain and brainstem was performed without and with 20 mL MultiHance intravenous contrast. Sequences included sagittal and axial T1-weighted FSE, axial diffusion-weighted FS EPI, axial T2*-weighted GRE, axial T2-weighted FLAIR Propeller, and axial T2-we ighted Propeller. Postcontrast sequences included axial and coronal T1-weighted FSE. Apparent diffusi on coefficient (ADC) maps were created. COMPARISON: Brain MRI 11/04/2013 FINDINGS: There are scattered areas of nonspecific increased T2-weighted signal intensity in the cere bral white matter, which is within normal limits for the patient's age. There is no intracranial hemo rrhage, acute infarction, or abnormal intracranial mass lesion. The ventricles are normal in size. Ca vum septum pellucidum and vergae are noted. There is mild mucosal thickening in the paranasal sinuses . The orbits are normal. The mastoid air cells are normal. IMPRESSION: 1. Normal aging brain. Reviewed, dictated and finalized at location A. IMPRESSION: 1. Normal aging brain.
== END 2020-04-26 13:18 | disposition home or self-care (01) ==
PROVIDERS: PCP Emergency Medicine; Visit Provider Emergency Medicine
DX: F03.90 Unspecified dementia, unspecified severity, without behavioral disturbance, psychotic disturbance, mood disturbance, and anxiety (principal)
CPT/HCPCS: 70553; A9577

== ENCOUNTER 2020-05-23 10:20 | Outpatient (CLI) | payer MEDICARE, SELFPAY ==
--- NOTE | ~2020-05-23 | MR_ITS ---
EXAMINATION: MR lumbar spine wo con DATE: 05/23/2020 11:23 INDICATION: Low back pain. Lumbar radiculopathy. TECHNIQUE: Magnetic resonance imaging (MRI) of the lumbar spine was performed without intravenous con trast. Sequences included sagittal T2-weighted FSE, sagittal T2-weighted FS FSE, sagittal T1-weighted FSE, and axial T2-weighted FSE. COMPARISON: Lumbar spine MRI 11/25/2016 FINDINGS: Bone alignment is normal. There is a compression fracture of L1 with 2/5 loss of height and bone marrow edema. There are Schmorl's nodes at all levels. There is a compression fracture of super ior endplate of L2 with 1/5 loss of height and bone marrow edema. There is a hemangioma in T12 verteb ral body. There is mildly decreased disc height at L4-L5 and moderately decreased disc height at L5-S 1. The distal spinal cord signal intensity is normal. The conus medullaris is at T12-L1. The followin g disc levels are specifically discussed: L1-L2: The disc is bulging. There is mild bilateral facet joint osteoarthritis. There is mild bilater al neural foraminal stenosis. There is mild central canal stenosis. L2-L3: The disc is bulging. There is mild bilateral facet joint osteoarthritis. There is mild bilater al neural foraminal stenosis. There is mild central canal stenosis. L3-L4: The disc is bulging. There is no facet joint osteoarthritis. There is mild bilateral neural fo raminal stenosis. There is mild central canal stenosis. L4-L5: The disc is bulging. There is moderate bilateral facet joint osteoarthritis. There is moderate right and mild left neural foraminal stenosis. There is mild central canal stenosis. L5-S1: The disc is bulging. There is severe bilateral facet joint osteoarthritis. There is moderate b ilateral neural foraminal stenosis. There is mild central canal stenosis. IMPRESSION: 1. Acute versus subacute compression fractures of L1 and L2. 2. Moderate lumbar spondylosis, stable from 11/25/2016. Reviewed, dictated and finalized at location B.
== END 2020-05-23 10:21 | disposition home or self-care (01) ==
PROVIDERS: PCP Emergency Medicine; Visit Provider Physician Assistant
DX: M47.26 Other spondylosis with radiculopathy, lumbar region (principal); M48.56XA Collapsed vertebra, not elsewhere classified, lumbar region, initial encounter for fracture
CPT/HCPCS: 72148

== ENCOUNTER 2020-08-27 11:50 | Inpatient (IN) | payer MEDICARE, SELFPAY ==
[2020-08-27] VITALS (57 sets, daily range): BP systolic 58–112; BP diastolic 26–93; PULSE 68–88; RESP 12–25; TEMP 35.7–36.7; O2SAT 74–100; BMI 42.5
--- NOTE | ~2020-08-27 | XR_ITS ---
EXAMINATION: XR chest port-a-cath/central EXAM DATE: 08/27/2020 16:06 INDICATION: Central line insertion . TECHNIQUE: Portable AP frontal chest x-ray was obtained. Comparison is made to prior examination from 08/27/2020. FINDINGS: There is a left IJ central venous line in position. Mild cardiomegaly. There is pulmonary v ascular congestion. Possible mild pulmonary edema. No confluent consolidation, pneumothorax or pleura l effusion suspected. There are no osseous abnormalities identified. IMPRESSION: 1. No evidence postprocedure pneumothorax. 2. Congestive changes, possible mild CHF exacerbation. Reviewed, dictated and finalized at location A. APPLICATIONS DEVELOPER
--- NOTE | ~2020-08-27 | XR_ITS ---
EXAMINATION: XR barium swallow modified EXAM DATE: 08/29/2020 11:03 INDICATION: parkinsons, aspiration pneumonia. Dysphagia. TECHNIQUE: Modified barium esophagram was performed by myself to administered fluoroscopy, in conjun ction with speech pathologist who administered barium in varying consistencies as per speech patholog ist documentation. This was recorded on tape. The DAP for this procedure was 3.6 Gycm2. FINDINGS: Oral stage: Adequate function. Ingested liquids and pooling in piriform sinus refluxed, demonstrated laryngeal penetration, but appe ared to eject. No definite aspiration, however vocal cord level was suboptimally visualized. IMPRESSION: Please refer to speech pathologist findings and specific feeding recommendations. Reviewed, dictated and finalized at location A. CLE I ASSEMBLER IMPRESSION: Please refer to speech pathologist findings and specific feeding r ecommendations.
--- NOTE | ~2020-08-27 | XR_ITS ---
XR chest 1V portable DATE: 08/27/2020 14:07 INDICATION: Altered mental state TECHNIQUE: Portable upright AP chest on 08/27/2020 at 1357 hours COMPARISON: 04/11/2020 portable upright AP chest FINDINGS: There is pulmonary vascular congestion and redistribution. There is prominence of the minor fissure suggesting subpleural edema. There are mild infiltrates primarily in the perihilar and lower lung zones and mild discoid atelectasis or scarring in the left lower lung. Heart size is not optimally evaluated on AP projection because of magnification. IMPRESSION: Congestive changes Bilateral primarily perihilar and lower lung infiltrates, suggesting pulmonary edema. Pneumonia and a spiration are not excluded. Reviewed, dictated and finalized at location B. LE ENGINEER IMPRESSION: Congestive changes Bilateral primarily perihilar and lower lung infiltrates, suggesting pulmonary edema. Pneumonia and aspiration are not excluded.
--- NOTE | ~2020-08-27 | US_ITS ---
EXAMINATION: US renal BI DATE: 08/27/2020 17:44 INDICATION: Acute renal failure TECHNIQUE: Multiple ultrasound grayscale images of the kidneys were obtained. COMPARISON: None. FINDINGS: The right kidney measures 10.5 x 5.2 x 5.4 cm. The left kidney measures 13.1 x 6.3 x 6.0 cm. The kidn eys demonstrate normal echogenicity. There is no hydronephrosis in either kidney. No stones identifi ed. The bladder is normal. IMPRESSION: 1. Normal kidneys without hydronephrosis. Reviewed, dictated and finalized at location H. ESHOER
--- NOTE | ~2020-08-27 | XR_ITS ---
EXAMINATION: XR chest 1V portable DATE: 08/29/2020 06:06 INDICATION: Septic shock. COVID-19 negative on 08/27/2020. TECHNIQUE: A single frontal view of the chest was obtained. COMPARISON: Chest single view 08/27/2020, chest CT 05/09/2019 FINDINGS: There are mild airspace opacities in the lower lung zones. No pleural effusion or pneumotho rax. The heart size is normal. A left internal jugular central venous catheter is seen with tip in th e superior vena cava. IMPRESSION: 1. Improved mild airspace opacities in the lower lung zones, consistent with atelectasis versus pneum onia. Reviewed, dictated and finalized at location A. E NAILER IMPRESSION: 1. Improved mild airspace opacities in the lower lung zones, consistent with at electasis versus pneumonia.
--- NOTE | ~2020-08-27 | US_ITS ---
EXAMINATION: US venous doppler LE EXAM DATE: 08/28/2020 15:46 INDICATION: Bilateral leg edema. TECHNIQUE: Multiple grayscale, color flow and Doppler images of the lower extremity deep venous syste ms bilaterally were obtained and reviewed. Comparison is made to prior examination from 05/09/2019. FINDINGS: Right side: Prior study had extensive right-sided DVT which has resolved. The right common femoral, f emoral and profunda veins demonstrate normal color flow, respiratory variation, augmentation and comp ressibility. Compressibility, color flow confirmed within the right popliteal, posterior tibial, per bryan, and greater saphenous veins. Right greater saphenous vein has flow reversal. Left side: The left common femoral, femoral and profunda veins demonstrate normal color flow, respira tory variation, augmentation and compressibility. Compressibility, color flow confirmed within the l eft popliteal, posterior tibial, peroneal, and greater saphenous veins. IMPRESSION: 1. No lower extremity deep venous thrombosis bilaterally. 2. Flow reversed in the right greater saphenous vein. Reviewed, dictated and finalized at location A. OR JAVA ARCHITECT
[2020-08-27] MEDS: SODIUM CHLORIDE 0.9% IV 1,000 ML 999 ML ×2 (12:14→15:05)
--- NOTE | 2020-08-27 12:15 | ECG_ITS ---
Measurements Intervals [place] Rate: 73 P: 42 KS: 164 QRS: -27 QRSD: 113 T: 12 QT: 427 QTc: 471 Interpretive Statements SINUS RHYTHM INTRAVENTRICULAR CONDUCTION DELAY DELAYED PRECORDIAL R/S TRANSITION BORDERLINE ST-T WAVE ABNORMALITY- INF/HIGH LAT LEADS BASELINE ARTIFACT- I, II, III, AVR, AVL, AVF BORDERLINE ECG Electronically Signed On 08-27-2020 14:58:21 PHYSICAL CHEMISTRY PROFESSOR by Galindo Watts D.O.
--- NOTE | 2020-08-27 12:17 | ED.GENADULT ---
HPI - General Adult General Chief complaint: Overdose Stated complaint: OD Time Seen by Provider: 08/27/20 12:04 Source: patient History of Present Illness HPI narrative: Patient is 55 y/o male brought by EMS for unresponsiveness. Per EMS, care information associate called because patient was unresponsive. He was given Narcan by EMS. Currently he is awake and alert. He has no complaint. He states that he is on Oxycodone for chronic pain. However, he denies taking more meds than prescribed. Related Data Home Medications Medication Instructions Recorded Confirmed Eliquis 5 mg PO BID 09/23/19 04/11/20 alprazolam 1 mg PO BID PRN 09/23/19 04/11/20 carbidopa-levodopa 1 tablet PO TID 09/23/19 04/11/20 divalproex 250 mg PO BID 09/23/19 04/11/20 escitalopram oxalate 20 mg PO DAILY 09/23/19 04/11/20 furosemide 40 mg PO BID 09/23/19 04/11/20 gabapentin 300 mg PO TID 09/23/19 04/11/20 levetiracetam 750 mg PO BID 09/23/19 04/11/20 lovastatin 20 mg PO QPM 09/23/19 04/11/20 oxycodone [OxyContin] 15 mg PO BID 09/23/19 04/11/20 pentoxifylline 400 mg PO BID 09/23/19 04/11/20 spironolactone 50 mg PO BID 09/23/19 04/11/20 topiramate 25 mg PO QPM 09/23/19 04/11/20 mupirocin 1 applic TOPICAL Q12HR 04/11/20 04/11/20 pramipexole mg 08/27/20 Allergies Allergy/AdvReac Type Severity Reaction Status Date / Time No Known Allergies Allergy Verified 09/23/19 14:30 Review of Systems Constitutional: Constitutional: Denies chills, Denies fever(s), Denies headache(s) and Denies weakness Eyes: Eyes: Denies blurry vision ENT: Denies headache(s) and Denies neck pain Cardiovascular: Cardiovascular: Denies chest pain and Denies dyspnea Respiratory: Respiratory: Denies cough and Denies dyspnea Gastrointestinal: Gastrointestinal: Denies abdominal pain, Denies diarrhea, Denies nausea and Denies vomiting Genitourinary: Genitourinary: Denies hematuria and Denies dysuria Musculoskeletal: Musculoskeletal: Denies back pain and Denies neck pain Neurologic: Denies headache(s) and Denies weakness PMFSH Past Medical History Medical History Arthritis Chronic pain syndrome Chronic seasonal allergic rhinitis Current use of snf anticoagulation Deep vein thrombosis of right lower limb (~04/2019) Extensive, occlusive DVT from the right common femoral vein through the peroneal and posterior tibial veins. Attempted angioplasty was unsuccessful and he was transferred to [place] for further and intervention. Now on long-term anticoagulation with Eliquis. Dementia Depression with anxiety Impetigo (~09/2019) Left thyroid nodule Noted on CT in April 2019. senior living prescription opiate use Myocardial infarction Previously documented history of stent x1 however the patient is adamant that he has no history of coronary disease. Parkinson disease Seizures Traumatic brain injury Wrist fracture Surgical History Surgical History History of mastoidectomy With resultant mild, chronic hearing loss. History of tonsillectomy Family History Family History Mother Cervical cancer Skin cancer Social History Social History Social History: The patient lives in his own home in [place]. He ambulates with a walker and has a friend come to the house daily to help with chores, etc. He smoked just about a pack of cigarettes per day since he was a teenager and now smokes maybe a few cigarettes a day. No alcohol or illicit substance use. He designates his friend, Maryse Garcia, as his surrogate decision maker and he wishes to be a full code. Smoking packs per day: 1 Smoking cigarettes per day: 20.0 Second hand tobacco smoke exposure: Yes Gender identity (if verbalized by the patient): Male Spiritual care concerns: No Agree to blood products: Yes Exam Const:
[2020-08-27 12:41] LABS: Basophils Percent Auto 0.3 % (0.2-1.2); Hematocrit 37.3 % (42.0-52.0); Hemoglobin 11.6 g/dL (14.0-18.0); Immature Granulocyte Absolute 0.25 K/mm3 (0.00-0.031); Immature Granulocyte Percent A 1.6 % (0-0.5); Lymphocytes Absolute Auto 0.71 K/mm3 (0.9-3.2); Lymphocytes Percent Auto 4.7 % (18.3-44.2); Mean Corpuscular HGB Conc 31.1 g/dl (32-36); Mean Corpuscular Hemoglobin 28.9 pg (26-34); Mean Corpuscular Volume 92.8 fl (80-100); Mean Platelet Volume 9.4 fl (7.4-10.4); Monocytes Absolute Auto 1.1 K/mm3 (0.1-0.6); Monocytes Percent Auto 7.2 % (2.6-8.5); Neutrophils Absolute Auto 13.2 K/mm3 (1.3-6.7); Neutrophils Percent Auto 86.2 % (45.5-73.1); Platelet Count Result 180 k/mm3 (150-375); Red Blood Count 4.02 M/mm3 (4.6-6.20); Red Cell Distribution Width 16.9 % (11.5-14.5); White Blood Count 15.3 K/mm3 (4.5-10.0)
[2020-08-27] MEDS: SODIUM CHLORIDE 0.9% IV 1,000 ML 999 ML IV CONT (13:17)
[2020-08-27 13:31] LABS: Albumin Level 3.5 g/dL (3.5-5.1); Alkaline Phosphatase 105 U/L (38-126); Anion Gap 14 mmol/L (8-16); Aspartate Amino Transferase 35 U/L (17-59); Bilirubin,Total 1.1 mg/dL (0.2-1.3); Blood Urea Nitrogen 88 mg/dL (9-20); Calcium 7.7 mg/dL (8.4-10.2); Carbon Dioxide 22 mmol/L (22-30); Chloride 90 mmol/L (98-107); Estimated Glomerular Filt Rate 5; Glucose 98 mg/dL (75-110); Potassium 5.8 mmol/L (3.4-5.0); Sodium 126 mmol/L (137-145)
--- NOTE | 2020-08-27 13:36 | PC.NURSE ---
cathed pt. 15f, 500mL dark brown, clear.
[2020-08-27 13:38] LABS: Ethanol < 10 mg/dL (<10)
[2020-08-27 13:40] LABS: Alanine Aminotransferase < 6 U/L (4-50)
[2020-08-27 14:02] LABS: Creatine Kinase 671 U/L (55-170)
[2020-08-27 14:03] LABS: Add Urine Microscopic? YES; Amorphous Sediment Urine Few; Appearance Urine Clear (Clear); Bacteria Urine Trace /hpf; Bilirubin Urine Negative (Negative); Blood Urine Negative (Negative); Color Urine Amber (Yellow); Glucose Urine UA Negative (Negative); Ketones Urine Trace mg/dL (Negative); Leukocyte Esterase Ur Negative LEU/UL (Negative); Mucus Urine Rare /lpf; Nitrate Urine Negative (Negative); Protein Urine 1+ mg/dL (Negative); RBC Urine 0-2 /hpf (0-2); Specific Grav Ur 1.018 (1.001-1.035); Squamous Epithelial Cell Urine Moderate /hpf (Few); Urobilinogen Urine Negative mg/dL (<2.0); WBC Urine 0-3 /hpf
[2020-08-27 14:12] LABS: Troponin I < 0.012 ng/mL (0.000-0.034)
[2020-08-27 14:12] LABS: Amphetamine Screen Urine Negative (Negative); Barbiturate Screen Urine Negative (Negative); Benzodiazepines Screen Urine Positive (Negative); Cannabinoid Screen Urine Negative (Negative); Cocaine Screen Urine Negative (Negative); Methadone Screen Urine Negative (Negative); Opiate Screen Urine Positive (Negative); Phencyclidine Screen Urine Negative (Negative)
[2020-08-27 14:36] LABS: Anion Gap 13 mmol/L (8-16); Blood Urea Nitrogen 91 mg/dL (9-20); Calcium 7.7 mg/dL (8.4-10.2); Carbon Dioxide 22 mmol/L (22-30); Chloride 91 mmol/L (98-107); Estimated Glomerular Filt Rate 5; Glucose 95 mg/dL (75-110); Potassium 6.1 mmol/L (3.4-5.0); Sodium 126 mmol/L (137-145)
[2020-08-27 14:50] LABS: Valproic Acid 26.2 ug/mL (50-120)
[2020-08-27] MEDS: INSULIN HUMAN REGULAR (*BKC) 100 UNITS/ML 10 UNITS IV PUSH (14:52)
[2020-08-27] MEDS: SODIUM BICARBONATE 8.4% 50 MEQ/50 ML VIAL IV PUSH (14:52)
[2020-08-27] MEDS: SODIUM POLYSTYRENE SULFONONATE 15 GM/60 ML BTL 30 GM PO (14:53)
[2020-08-27] MEDS: DEXTROSE 50% 25 GM/50 ML SYRINGE IV PUSH (14:53)
[2020-08-27 14:55] LABS: Acetaminophen < 10 ug/mL (10-30)
[2020-08-27 15:17] LABS: Lactic Acid Reflex 0.7 mmol/L (0.7-2.1)
--- NOTE | 2020-08-27 15:30 | PC.NURSE ---
1500 Manual blood pressure obtained. 70/40. ERP notified. Another IVF bolus ordered. 1530 500ml infused, blood pressure still hypotensive. ERP notified. IVFs stopped. ERP will place in a central line.
[2020-08-27 15:35] LABS: NT Pro B Type Natriuretic Pept 4610 PG/ML (5-100)
[2020-08-27] MEDS: NOREPINEPHRINE 8 MG/D5W 250 ML 8 MG/250 ML BAG 9.38 MG IV CONT (16:19)
--- NOTE | 2020-08-27 16:30 | PM.IMHP ---
H&P: HPI History of Present Illness Date/Time: 08/27/20 16:30. The patient was seen evaluated emergency department. Chief complaint: Lethargic with altered mental status. Narrative: Giuseppe Santana is a 55-year-old male with multiple medical problems to include traumatic brain injury resulting in premature Parkinson's disease and dementia, seizure disorder, chronic pain syndrome on long-term opioid therapy, depression, anxiety, and DVT on long-term anticoagulation who presented to the emergency department earlier today via EMS from home with reports of lethargy and altered mental status. He is alert and oriented x4 at the time my evaluation however his thought process is a bit slow however this seems consistent from when I have seen him previously. He typically lives in his own home however his father recently and he has been staying with his mother since that time. It is his mother that found him not long prior to arrival, essentially unresponsive on the couch, and she called 911. Giuseppe gives a 2 day history of generalized malaise and decreased appetite and reports feeling weak upon waking this morning. He is extremely dry on exam and straight catheterization yielded 500 mL of dark brown, clear urine. Again he tells me he has had a decrease in appetite for the last 2 days or so but he appears much more dry than that. I did inquire about confusion and he does admit that he feels more confused than his baseline. Initially there was some concern that he may have accidentally overdosed on his oxycodone and he was given Narcan by EMS, with benefit. I was told that some of his oxycodone was not accounted for however Giuseppe tells me that when he had the prescription filled that they did not have enough pills to dispense to him at that time, thus accounting for the ?missing? pills. He does sound a bit congested on exam with an occasional cough, however he denies to me that he has been coughing and reports no known sick contacts. He has noticed a decrease in urine output but denies dysuria, hesitancy, and frequency. He has no complaints at the time my evaluation and denies fever, chills, sweats, headache, vertigo, sinus congestion, rhinorrhea, otalgia, odynophagia, vomiting, dysphagia, concerns for aspiration, dysuria, and diarrhea. Another medication was recently added to his regimen by his neurologist apparently for his Parkinson's, but he does not recall the name of that medication. No NSAID use. Review of Systems Review of Systems: Narrative: Twelve systems were reviewed with pertinent positives and negatives as per HPI. 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 Attempted angioplasty was unsuccessful and he was transferred to [place] for further and intervention. Now on long-term anticoagulation with Eliquis. Dementia Depression with anxiety Impetigo (~09/2019) Left thyroid nodule Noted on CT in April 2019. nursing home prescription opiate use Myocardial infarction Previously documented history of stent x1 however the patient is adamant that he has no history of coronary disease. Parkinson disease Peripheral vascular disease Seizures Traumatic brain injury Wrist fracture Surgical History Surgical History History of mastoidectomy With resultant mild, chronic hearing loss. History of tonsillectomy Family History Family History Mother Cervical cancer Skin cancer Social History Social History (Reviewed 08/27/20 @ 23:30 by Niramla Abarca
[2020-08-27 16:51] LABS: Troponin I < 0.012 ng/mL (0.000-0.034)
--- NOTE | 2020-08-27 18:34 | PC.NURSE ---
This patient, Giuseppe Santana, was admitted to IMU Room 231-01 as ICU overflow. Patient/family oriented to hospital policies and general routines including ID bracelet, bed and alarms, visiting hours, pain management, procedures, bathroom and other care routines, personal items, smoking policy, room service/diet, and visiting hours. Information on how to activate the Rapid Response Team has been discussed. Patient/Family are encouraged to report perceived risks to care and to ask questions if they do not understand what they are told or what they should do.
[2020-08-27 20:09] LABS: Anion Gap 13 mmol/L (8-16); Blood Urea Nitrogen 87 mg/dL (9-20); Calcium 7.8 mg/dL (8.4-10.2); Carbon Dioxide 23 mmol/L (22-30); Chloride 93 mmol/L (98-107); Creatine Kinase 771 U/L (55-170); Estimated CRCL calculation 11 ml/min; Estimated Glomerular Filt Rate 6; Glucose 105 mg/dL (75-110); Magnesium 2.5 mg/dL (1.6-2.3); Potassium 5.3 mmol/L (3.4-5.0); Sodium 129 mmol/L (137-145)
[2020-08-27 20:14] LABS: CRP 6.6 mg/dL (<1.0); Lactate Dehydrogenase 339 U/L (313-618)
[2020-08-27 20:21] LABS: Troponin I < 0.012 ng/mL (0.000-0.034)
[2020-08-27 20:23] LABS: Valproic Acid 22.3 ug/mL (50-120)
[2020-08-27 20:26] LABS: Ammonia 19 umol/L (9-30)
[2020-08-27] MEDS: CENTRAL LINE FLUSH 10 ML IV PUSH ×4 (20:37→20:38)
[2020-08-27] MEDS: HEPARIN SODIUM 5,000 UNITS/ML VIAL 5000 UNITS SUB-Q (20:38)
[2020-08-27 20:54] LABS: Thyroid Stimulating Hormone Reflex 0.369 uIU/mL (0.465-4.68)
[2020-08-27 21:28] LABS: Free T4 Free Thyroxine Reflex 0.81 ng/dL (0.78-2.19)
[2020-08-27 21:52] LABS: Sodium Urine Random 67 meq/L
[2020-08-27 22:00] LABS: Creatinine Urine 99.8 mg/dL
[2020-08-27 22:07] LABS: Total Triiodothyronine (T3) 0.79 NG/ML (0.97-1.69)
[2020-08-27] MEDS: DIVALPROEX SODIUM 250 MG TABEC PO (22:43)
[2020-08-27] MEDS: levETIRAcetam 500 MG TABLET PO (22:44)
[2020-08-28] VITALS (33 sets, daily range): BP systolic 91–122; BP diastolic 40–79; PULSE 66–97; RESP 16–20; TEMP 35.8–36.9; O2SAT 94–99
[2020-08-28] MEDS: SODIUM CHLORIDE 0.9% IV 1,000 ML 100 ML IV CONT (00:18)
[2020-08-28] MEDS: NOREPINEPHRINE 8 MG/D5W 250 ML 8 MG/250 ML BAG 30 MG IV CONT ×2 (00:18→08:45)
[2020-08-28 00:35] LABS: Anion Gap 11 mmol/L (8-16); Blood Urea Nitrogen 84 mg/dL (9-20); Calcium 8.1 mg/dL (8.4-10.2); Carbon Dioxide 27 mmol/L (22-30); Chloride 92 mmol/L (98-107); Creatine Kinase 715 U/L (55-170); Estimated CRCL calculation 13 ml/min; Estimated Glomerular Filt Rate 7; Glucose 133 mg/dL (75-110); Potassium 4.8 mmol/L (3.4-5.0); Sodium 130 mmol/L (137-145)
[2020-08-28 05:17] LABS: Basophils Percent Auto 0.2 % (0.2-1.2); Eosinophils Percent Auto 0.1 % (0-4.4); Hematocrit 39.9 % (42.0-52.0); Hemoglobin 12.3 g/dL (14.0-18.0); Immature Granulocyte Absolute 0.23 K/mm3 (0.00-0.031); Immature Granulocyte Percent A 1.7 % (0-0.5); Lymphocytes Absolute Auto 0.88 K/mm3 (0.9-3.2); Lymphocytes Percent Auto 6.5 % (18.3-44.2); Mean Corpuscular HGB Conc 30.8 g/dl (32-36); Mean Corpuscular Hemoglobin 28.5 pg (26-34); Mean Corpuscular Volume 92.6 fl (80-100); Mean Platelet Volume 9.2 fl (7.4-10.4); Monocytes Absolute Auto 1.2 K/mm3 (0.1-0.6); Neutrophils Absolute Auto 11.3 K/mm3 (1.3-6.7); Neutrophils Percent Auto 82.5 % (45.5-73.1); Platelet Count Result 225 k/mm3 (150-375); Red Blood Count 4.31 M/mm3 (4.6-6.20); Red Cell Distribution Width 16.7 % (11.5-14.5); White Blood Count 13.6 K/mm3 (4.5-10.0)
[2020-08-28 05:36] LABS: Anion Gap 13 mmol/L (8-16); Blood Urea Nitrogen 78 mg/dL (9-20); Calcium 8.4 mg/dL (8.4-10.2); Carbon Dioxide 30 mmol/L (22-30); Chloride 93 mmol/L (98-107); Creatine Kinase 576 U/L (55-170); Estimated CRCL calculation 17 ml/min; Estimated Glomerular Filt Rate 10; Glucose 119 mg/dL (75-110); Magnesium 2.1 mg/dL (1.6-2.3); Potassium 4.4 mmol/L (3.4-5.0); Sodium 136 mmol/L (137-145)
--- NOTE | 2020-08-28 08:09 | PM.CNNEP ---
Assessment and Plan Assessment and plan (1) Acute kidney injury: Code(s): N17.9 - Acute kidney failure, unspecified Status: Acute Assessment and Plan: The patient has acute kidney injury. Since since. The last 1 checked was in April when he was in the hospital. Patient looks dehydrated on exam. He was hypotensive as well. This could be simple dehydration as his renal function seems to be improving quite a bit with IV fluids. He could also have acute tubular necrosis. There is a question of whether he has COVID-19 and so could have had some hemodynamic issues at home as well, leading to ATN. Obstruction is always a possibility. Renal ultrasound was done which rules this out. Allergic interstitial nephritis and glomerulonephritis her always possible but unlikely in this scenario. He has no peripheral eosinophilia and no rash. At this point we will continue IV fluids. He was on Lasix as an outpatient will keep him off of this. (2) Hyponatremia: Code(s): E87.1 - Hypo-osmolality and hyponatremia Status: Acute Assessment and Plan: The patient has mild hyponatremia. This is most likely due to dehydration. IV fluids should help this. Rate of correction is borderline high. Will give some hypotonic fluid and repeat the sodium. (3) Hyperkalemia: Code(s): E87.5 - Hyperkalemia Status: Acute Assessment and Plan: His potassium was high on admission. It has improved. (4) Shock: Code(s): R57.9 - Shock, unspecified Status: Acute Assessment and Plan: Blood pressure was low. Rule out infection. Blood cultures are done. He is on antibiotics. Dehydration might have done this as well. (5) Metabolic encephalopathy: Code(s): G93.41 - Metabolic encephalopathy Status: Acute Assessment and Plan: This is improved. (6) Abnormal chest x-ray: Code(s): R93.89 - Abnormal findings on diagnostic imaging of other specified body structures Status: Acute Assessment and Plan: Chest x-ray. This may be COVID. Testing is pending. (7) History of DVT (deep vein thrombosis): Code(s): Z86.718 - Personal history of other venous thrombosis and embolism Status: Acute Assessment and Plan: He is on subcu heparin Additional Plan History of Present Illness Reason for Consult Consult date: 08/28/20 Chief Complaint Chief complaint: Lethargic with altered mental status. History of Present Illness Narrative: Giuseppe is a very pleasant 55-year-old gentleman who has renal failure., dementia, seizures, chronic pain on opioid therapy, depression, anxiety, DVT, current anticoagulation. The patient was found by his mother at home unresponsive. She called 911 had him brought over to the emergency room. In the ER is found to be dehydrated. His blood pressure was low. He was given IV fluids and his blood pressure responded. They have been giving up IV fluids overnight as well. The patient is more awake this morning. He does not remember much about yesterday at all. He does give a history of having generalized weakness for couple of days. The patient denies any bloody urine, foamy urine, kidney stones, or bladder infections. Past history is positive for that as above, left thyroid nodule, coronary disease status post OR and stent, peripheral vascular disease, seasonal allergies. Review of Systems Constitutional: Constitutional: Reports no additional constitutional complaints Eyes: Eyes: Reports no additional eye complaints ENT: Reports system reviewed and no additional complaints, except as documented Cardiovascular: Cardiovascular: Reports no additional cardiovascular complaints Respiratory: Respiratory: Reports no additional respiratory complaints Gastrointestinal: Gastrointestinal: Reports no additional gastrointestinal complaints Genitourinary: Genitourinary: Reports no additional male genitourinary complaints Musculos
[2020-08-28] MEDS: ESCITALOPRAM OXALATE 10 MG TABLET 20 MG PO (08:44)
[2020-08-28] MEDS: GABAPENTIN 100 MG CAPSULE 200 MG PO (08:45)
[2020-08-28] MEDS: DIVALPROEX SODIUM 250 MG TABEC PO ×2 (08:45→20:40)
[2020-08-28] MEDS: levETIRAcetam 500 MG TABLET PO ×2 (08:45→20:40)
[2020-08-28] MEDS: HEPARIN SODIUM 5,000 UNITS/ML VIAL 5000 UNITS SUB-Q ×2 (08:45→20:39)
[2020-08-28] MEDS: PRAMIPEXOLE 0.125 MG TABLET PO (08:45)
[2020-08-28] MEDS: CARBIDOPA/LEVODOPA 25/250 MG TABLET 1 TABLET PO ×3 (08:45→17:43)
[2020-08-28] MEDS: DEXTROSE 5% 1,000 ML 1,000 ML 360 ML IV CONT ×2 (09:32→21:15)
[2020-08-28] MEDS: CENTRAL LINE FLUSH 10 ML IV PUSH ×3 (09:34→20:41)
[2020-08-28] MEDS: SODIUM CHLORIDE 0.45% 1,000 ML 100 ML IV CONT (11:49)
--- NOTE | 2020-08-28 12:49 | PCSTNOTE ---
Please refer to the Bedside Swallow Evaluation in the EMR. Please note, silent aspiration cannot be ruled out at bedside.
[2020-08-28 13:27] LABS: Sodium 135 mmol/L (137-145)
[2020-08-28] MEDS: ACETAMINOPHEN 325 MG TABLET 650 MG PO (15:01)
--- NOTE | 2020-08-28 15:21 | WPDCNINT ---
Assessment and Plan Assessment and plan (1) Shock: Code(s): R57.9 - Shock, unspecified Status: Acute Assessment and Plan: shock likely related to UTI, pneumonia, hypovolemia - patient adequately fluid-resuscitated - urine output has picked up significantly with creatinine trending down - continue Levophed, maintain mean arterial pressures greater than 65 mmHg - continue ceftriaxone and azithromycin - blood cultures negative x2 - obtain urine cultures (2) Metabolic encephalopathy: Code(s): G93.41 - Metabolic encephalopathy Status: Acute Assessment and Plan: patient presented with unresponsiveness, responded well to Narcan. unresponsiveness could be related to uremia, hypotension, shock - currently patient is awake, alert, oriented x3 - continue to monitor mental status (3) Hyperkalemia: Code(s): E87.5 - Hyperkalemia Status: Acute Assessment and Plan: resolved IV fluids, Kayexalate, bicarb, D50 and insulin - also improve secondary to improvement in acute kidney injury (4) Acute kidney injury: Code(s): N17.9 - Acute kidney failure, unspecified Status: Acute Assessment and Plan: acute kidney injury most likely related to hypovolemia, decreased p.o. intake, diuretic use - creatinine improving after adequate fluid resuscitation, also patient has probably obstructive uropathy as after the Menard catheter was inserted patient had total of 5500 mL in urine output. - Patient continues to have good urine output. - Continue monitor renal function electrolytes (5) Hyponatremia: Code(s): E87.1 - Hypo-osmolality and hyponatremia Status: Acute Assessment and Plan: hypovolemic hyponatremia - nephrology following the patient closely. - He was started on D5 water this morning followed by half-normal saline - will gradually increase sodium levels not more than 0.5 mEq per hour (6) Chronic pain syndrome: Code(s): G89.4 - Chronic pain syndrome Status: Acute Assessment and Plan: patient on oxycodone at home, found unresponsive which responded to Narcan - will hold opioids at this time given hypotension on vasopressors - will watch for withdrawal (7) Suspected 2019 novel coronavirus infection: Code(s): Z20.828 - Contact with and (suspected) exposure to other viral communicable diseases Status: Acute Assessment and Plan: chest x-ray with bilateral perihilar and lower lung infiltrates - SARS-CoV-2 PCR has been obtained and pending - continue droplet, airborne, contact isolation /precautions (8) DVT prophylaxis: Code(s): Z29.9 - Encounter for prophylactic measures, unspecified Status: Acute Assessment and Plan: heparin subcu (9) Dietary counseling and surveillance: Code(s): Z71.3 - Dietary counseling and surveillance Status: Acute Assessment and Plan: patient tolerating diet Additional Plan discussed with patient updated with his condition and plan of care. I answered all questions code status: Full code critical care time spent: 49 minutes Due to a high probability of clinically significant, life threatening deterioration, the patient required my highest level of preparedness to intervene emergently and I personally spent this critical care time directly and personally managing the patient. This critical care time included obtaining a history; examining the patient; pulse oximetry; ordering and review of studies; arranging urgent treatment with development of a management plan; evaluation of patient's response to treatment; frequent reassessment; and discussions with other providers. It was exclusive of separately billable procedures and treating other patients and teaching time. Please see Assessment and Plan section and the rest of the note for further information on patient assessment and treatment Scientific Research Manager Consult Note Consult date: 08/28/20 Time
--- NOTE | 2020-08-28 17:23 | PM.IMPN ---
Progress Note: A&P Assessment and Plan (1) Shock: Code(s): R57.9 - Shock, unspecified Status: Acute Assessment and Plan: Cultured placed on antibiotics and tapering pressors. Much more alert. (2) Acute kidney injury: Code(s): N17.9 - Acute kidney failure, unspecified Status: Acute Assessment and Plan: Probably secondary to dehydration hypotension. Creatinine has fallen from 9.1-5.9 with hydration. Renal sonogram showed no obstruction (3) Unresponsive episode: Code(s): R41.89 - Other symptoms and signs involving cognitive functions and awareness Status: Acute Assessment and Plan: Probable secondary to hypotension, resolved (4) Acute respiratory failure with hypoxia: Code(s): J96.01 - Acute respiratory failure with hypoxia Status: Acute Assessment and Plan: Continue to monitor probably from hypotension also but treat for infectious process (5) Hyperkalemia: Code(s): E87.5 - Hyperkalemia Status: Acute Assessment and Plan: Resolved with treatment of renal failure. Potassium 4.1 today (6) Hyponatremia: Code(s): E87.1 - Hypo-osmolality and hyponatremia Status: Acute Assessment and Plan: Sodium up to 136 (7) Abnormal chest x-ray: Code(s): R93.89 - Abnormal findings on diagnostic imaging of other specified body structures Status: Acute Assessment and Plan: Evidence of failure continue to monitor, echo pending (8) Dementia: Code(s): F03.90 - Unspecified dementia without behavioral disturbance Status: Acute Assessment and Plan: Stable continue his antidepressant (9) Parkinson disease: Code(s): G20 - Parkinson's disease Status: Acute (10) Seizures: Code(s): R56.9 - Unspecified convulsions Status: Acute (11) Current use of skilled nursing anticoagulation: Code(s): Z79.01 - FDC (current) use of anticoagulants Status: Acute Assessment and Plan: Eliquis on hold with renal failure (12) Metabolic encephalopathy: Code(s): G93.41 - Metabolic encephalopathy Status: Acute Assessment and Plan: Resolved now possibly secondary to uremia and or septic like picture Subjective Date/time seen: 08/28/20 17:23 Interval history: Date of visit 08/28. 55-year-old white male with history of traumatic brain injury, seizure, thromboembolism, admitted with decrease in mental status and found to be in acute renal failure. Is hypotensive, cultured and placed on antibiotics and pressors. Presently he is awake alert feeling better with no specific complaints Exam Narrative: Exam Narrative: Blood pressure 104/50 with taper and Levophed pulse 72 saturating 95% on 3 L nasal cannula Pupil equal reactive light Mouth normal Lungs clear CV regular rate rhythm Abdomen is soft nontender Extremities without edema good distal pulses Neuro alert present time conversing with no focal deficits Objective Data Vital Signs Vital Signs: Vital Signs - 24 hr 08/27/20 17:32 08/27/20 17:39 08/27/20 18:02 Temperature Pulse Rate 88 75 74 Respiratory Rate 18 19 12 Blood Pressure 93/56 L Pulse Oximetry 92 08/27/20 18:04 08/27/20 18:13 08/27/20 18:40 Temperature 35.7 C L Pulse Rate 76 72 80 Respiratory Rate 25 H 20 24 H Blood Pressure 93/50 L 92/55 L Pulse Oximetry 99 96 08/27/20 18:43 08/27/20 18:46 08/27/20 19:00 Temperature Pulse Rate 76 76 74 Respiratory Rate 20 20 22 H Blood Pressure 102/49 L 91/43 L Pulse Oximetry 95 95 96 08/27/20 19:04 08/27/20 19:30 08/27/20 19:56 Temperature 36.7 C Pulse Rate 76 75 Respiratory Rate 20 20 Blood Pressure 92/55 L 93/45 L 95/44 L Pulse Oximetry 95 97 08/27/20 20:00 08/27/20 20:30 08/27/20 21:00 Temperature Pulse Rate 75 73 72 Respiratory Rate 20 22 H 20 Blood Pressure 107/56 L 105/64 Pulse Oximetry 97 98 98 08/27/20 21:30 08/27/20 22:00
[2020-08-28] MEDS: NOREPINEPHRINE 8 MG/D5W 250 ML 8 MG/250 ML BAG 24.38 MG IV CONT (18:40)
[2020-08-28 18:58] LABS: Sodium 135 mmol/L (137-145)
[2020-08-28 19:47] LABS: SARS-CoV-2 RNA PCR Negative
[2020-08-29] VITALS (29 sets, daily range): BP systolic 100–130; BP diastolic 54–88; PULSE 58–85; RESP 14–20; TEMP 35.8–36.7; O2SAT 93–100
[2020-08-29] MEDS: ACETAMINOPHEN 325 MG TABLET 650 MG PO ×2 (05:04→17:48)
[2020-08-29] MEDS: ALPRAZolam (*CRX) 0.5 MG TABLET 1 MG PO ×2 (05:04→17:48)
[2020-08-29 05:07] LABS: Basophils Percent Auto 0.5 % (0.2-1.2); Eosinophils Percent Auto 0.1 % (0-4.4); Hematocrit 38.3 % (42.0-52.0); Hemoglobin 12.2 g/dL (14.0-18.0); Immature Granulocyte Absolute 0.14 K/mm3 (0.00-0.031); Immature Granulocyte Percent A 1.7 % (0-0.5); Lymphocytes Absolute Auto 1.06 K/mm3 (0.9-3.2); Lymphocytes Percent Auto 12.8 % (18.3-44.2); Mean Corpuscular HGB Conc 31.9 g/dl (32-36); Mean Corpuscular Hemoglobin 28.9 pg (26-34); Mean Corpuscular Volume 90.8 fl (80-100); Mean Platelet Volume 8.6 fl (7.4-10.4); Monocytes Absolute Auto 0.8 K/mm3 (0.1-0.6); Monocytes Percent Auto 9.4 % (2.6-8.5); Neutrophils Absolute Auto 6.3 K/mm3 (1.3-6.7); Neutrophils Percent Auto 75.5 % (45.5-73.1); Platelet Count Result 188 k/mm3 (150-375); Red Blood Count 4.22 M/mm3 (4.6-6.20); Red Cell Distribution Width 16.4 % (11.5-14.5); White Blood Count 8.3 K/mm3 (4.5-10.0)
[2020-08-29] MEDS: CENTRAL LINE FLUSH 10 ML IV PUSH ×3 (05:07→21:24)
[2020-08-29] MEDS: NOREPINEPHRINE 8 MG/D5W 250 ML 8 MG/250 ML BAG 22.5 MG IV CONT (05:07)
[2020-08-29 05:21] LABS: Lactic Acid Reflex 0.7 mmol/L (0.7-2.1)
[2020-08-29 05:26] LABS: Albumin Level 3.6 g/dL (3.5-5.1); Anion Gap 3.99999 mmol/L (8-16); Blood Urea Nitrogen 41 mg/dL (9-20); CRP 6.5 mg/dL (<1.0); Calcium 9.4 mg/dL (8.4-10.2); Carbon Dioxide > 40 mmol/L (22-30); Chloride 93 mmol/L (98-107); Creatine Kinase 141 U/L (55-170); Estimated CRCL calculation 71 ml/min; Estimated Glomerular Filt Rate 57; Glucose 139 mg/dL (75-110); Magnesium 1.5 mg/dL (1.6-2.3); Phosphorus 2.4 mg/dL (2.5-4.5); Potassium 3.9 mmol/L (3.4-5.0); Sodium 137 mmol/L (137-145)
--- NOTE | 2020-08-29 07:52 | P.CDI_ITS ---
CDI Query Clarification Request -Shock, unspecified has been documented by hospitalits in progress note -Shock, likely related to UTI/PN/hypovolemia documented by nutrition teacher -H&P states shock, differential diagnosis to include hypovolemic versus septic shock . Please clarify cause of shock, hypovolemia, sepsis, or unable to determine. <Ivy Paulson RN - Last Filed: 08/29/20 08:01>
--- NOTE | 2020-08-29 08:04 | PM.PNNEP ---
Progress Note: A&P Assessment and Plan (1) Acute kidney injury: Code(s): N17.9 - Acute kidney failure, unspecified Status: Acute Assessment and Plan: The patient has acute kidney injury. Ultrasound was unremarkable. Urine electrolytes were non pre renal however he was on diuretics at the time. Most likely this is due to dehydration. He improved dramatically with fluids. (2) Hyponatremia: Code(s): E87.1 - Hypo-osmolality and hyponatremia Status: Acute Assessment and Plan: The patient has mild hyponatremia. This is most likely due to dehydration. Sodium corrected borderline too fast so he receives some D5W which slowed it down and now he is in good shape. Sodium level is low normal. (3) Hyperkalemia: Code(s): E87.5 - Hyperkalemia Status: Acute Assessment and Plan: Resolved (4) Shock: Code(s): R57.9 - Shock, unspecified Status: Acute Assessment and Plan: Blood pressure is improved. (5) Metabolic encephalopathy: Code(s): G93.41 - Metabolic encephalopathy Status: Acute Assessment and Plan: This is improved. (6) Abnormal chest x-ray: Code(s): R93.89 - Abnormal findings on diagnostic imaging of other specified body structures Status: Acute Assessment and Plan: Chest x-ray. COVID negative (7) History of DVT (deep vein thrombosis): Code(s): Z86.718 - Personal history of other venous thrombosis and embolism Status: Acute Assessment and Plan: He is on subcu heparin Additional Plan Subjective Date/time seen: 08/29/20 08:04 Interval history: Patient is alert. He feels better. He is in pain and he is asking for pain meds. No chest pain or shortness of breath. Review of Systems Cardiovascular: Cardiovascular: Reports no additional cardiovascular complaints Respiratory: Respiratory: Reports no additional respiratory complaints Gastrointestinal: Gastrointestinal: Reports no additional gastrointestinal complaints Genitourinary: Genitourinary: Reports no additional male genitourinary complaints Exam Narrative: Exam Narrative: WDWN in NAD skin no rash head ncat lungs clear cor reg no rub abd BS+ nontender and soft ext no edema. Objective Data Vital Signs Vital Signs: Vital Signs - 24 hr 08/28/20 08:50 08/28/20 10:00 08/28/20 12:00 Temperature 35.8 C L Pulse Rate 81 76 Respiratory Rate 18 18 Blood Pressure 115/62 92/61 L 106/61 Pulse Oximetry 97 96 08/28/20 14:00 08/28/20 15:30 08/28/20 15:55 Temperature Pulse Rate 77 Respiratory Rate 16 Blood Pressure 103/50 L 102/61 Pulse Oximetry 97 96 08/28/20 16:00 08/28/20 17:40 08/28/20 18:00 Temperature 36.9 C 36.1 C L Pulse Rate 73 74 Respiratory Rate 16 16 Blood Pressure 96/59 L 111/59 L 106/62 Pulse Oximetry 95 96 08/28/20 20:00 08/28/20 20:30 08/28/20 21:00 Temperature 36.7 C Pulse Rate 97 77 73 Respiratory Rate 20 18 16 Blood Pressure 104/67 105/78 100/59 L Pulse Oximetry 99 97 96 08/28/20 21:30 08/28/20 22:00 08/28/20 22:48 Temperature Pulse Rate 66 73 69 Respiratory Rate 20 20 18 Blood Pressure 101/60 100/59 L 101/60 Pulse Oximetry 95 96 95 08/28/20 23:00 08/28/20 23:30 08/29/20 00:00 Temperature 36.6 C Pulse Rate 67 70 70 Respiratory Rate 17 18 14 Blood Pressure 105/55 L 120/64 108/61 Pulse Oximetry 96 98 96 08/29/20 00:30 08/29/20 01:00 08/29/20 01:30 Temperature Pulse Rate 73 69 68 Respiratory Rate 17 16 17 Blood Pressure 124/65 110/66 111/64 Pulse Oximetry 97 98 96 08/29/20 02:00 08/29/20 02:30 08/29/20 03:00 Temperature Pulse Rate 69 71 73 Respiratory Rate 15 14 18 Blood Pressure 111/63 108/55 L 112/62 Pulse Oximetry 96 95 96 08/29/20 03:30 08/29/20 04:00 08/29/20 04:30 Temperature Pulse Rate 72 69 72 Respiratory Rate 16 18 18 Blood Pressure 111/60 125/83 125/83 Pulse Oximetry 97 95 95 08/29/20
--- NOTE | 2020-08-29 08:25 | WPDINTPN ---
Progress Note: A&P Assessment and Plan (1) Shock: Code(s): R57.9 - Shock, unspecified Status: Acute Assessment and Plan: shock likely related to pneumonia, possible aspiration from being down - patient adequately fluid-resuscitated. Currently plan to perform a Cheetah evaluation to see if Levophed can be decreased - Cr back to normal with good urine output. Consider removing cooper in the next day or two but continue to monitor I&Os with urinal. - continue Levophed, maintain mean arterial pressures greater than 65 mmHg. Cheetah pending - continue ceftriaxone and azithromycin--improvement with mental status and leukocytosis. No indication for broader abx at this time. If he worsens, consider unaysn for more broad coverage for aspiration PNA - blood cultures negative x2 - Urine cx pending but suspect this will be negative (2) PNA (pneumonia): Code(s): J18.9 - Pneumonia, unspecified organism Status: Acute Assessment and Plan: Likely aspiration PNA d/t unresponsive episode and also parkinsons -Continue ceftriaxone and azythromycin as stated above. No indication for broader abx at this time but consider unasyn if pt worsens -CXR 08/29/20 appears better -I have asked to nurse to call ST to do a bedside since pt is alert and oriented and states he is coughing with meals -will add nebs -BP improved 120/68 plan to wean off levophed -Will add sputum cx, urine studies pending (3) Acute kidney injury: Code(s): N17.9 - Acute kidney failure, unspecified Status: Acute Assessment and Plan: Likely d/t dehydration, shock, and rhabdomyolysis. -Resolved with Cr down to 1.3 today -Cr on admission 10.5 -Normal u/s of kidneys -No UTI or pyelo suspected -Nephrology consulted (4) Metabolic encephalopathy: Code(s): G93.41 - Metabolic encephalopathy Status: Acute Assessment and Plan: Resolved now possibly secondary to uremia and sepsis as stated above (5) Unresponsive episode: Code(s): R41.89 - Other symptoms and signs involving cognitive functions and awareness Status: Acute Assessment and Plan: Probable secondary to hypotension or OD, resolved -no neurological deficits to suspect stroke -no CT head, consider obtaining although pt is back to baseline -Sz possibility, on depakote and keppra. No sz acitivty here so far (6) Acute respiratory failure with hypoxia: Code(s): J96.01 - Acute respiratory failure with hypoxia Status: Acute Assessment and Plan: d/t above -Wean o2 (7) Hyperkalemia: Code(s): E87.5 - Hyperkalemia Status: Acute Assessment and Plan: Resolved with treatment of renal failure. Potassium 3.9 today (8) Hyponatremia: Code(s): E87.1 - Hypo-osmolality and hyponatremia Status: Acute Assessment and Plan: Improved. 137 today (9) Abnormal chest x-ray: Code(s): R93.89 - Abnormal findings on diagnostic imaging of other specified body structures Status: Acute Assessment and Plan: Congestive changes noted on initial CXR, echo pending (10) Dementia: Code(s): F03.90 - Unspecified dementia without behavioral disturbance Status: Acute Assessment and Plan: Chronic, alert and oriented x 4 today (11) Parkinson disease: Code(s): G20 - Parkinson's disease Status: Acute Assessment and Plan: Continue sinamet (12) Seizures: Code(s): R56.9 - Unspecified convulsions Status: Acute Assessment and Plan: Continue Keppra and depakote (13) 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
[2020-08-29] MEDS: DIVALPROEX SODIUM 250 MG TABEC PO ×2 (10:12→21:23)
[2020-08-29] MEDS: POTASSIUM PHOS,M-BASIC-D-BASIC 20 MMOL in SODIUM CHLORIDE 0.9% IV 250 ML 62.5 MMOL IVPB (10:12)
[2020-08-29] MEDS: levETIRAcetam 500 MG TABLET PO ×2 (10:13→21:23)
[2020-08-29] MEDS: PRAMIPEXOLE 0.125 MG TABLET PO (10:13)
[2020-08-29] MEDS: ESCITALOPRAM OXALATE 10 MG TABLET 20 MG PO (10:13)
[2020-08-29] MEDS: GABAPENTIN 100 MG CAPSULE 200 MG PO (10:13)
[2020-08-29] MEDS: CARBIDOPA/LEVODOPA 25/250 MG TABLET 1 TABLET PO ×3 (10:13→17:47)
[2020-08-29] MEDS: LIDOCAINE 5% PATCH 1 PATCH TRANSDERM (10:14)
[2020-08-29] MEDS: SODIUM CHLORIDE 0.45% 1,000 ML 100 ML IV CONT ×3 (12:00→21:23)
[2020-08-29] MEDS: MAGNESIUM SULF 2 GM/WATER 50ML 2 GM/50 ML BAG IVPB (14:52)
[2020-08-29] MEDS: APIXABAN 5 MG TABLET PO (14:52)
[2020-08-29 15:05] LABS: Anion Gap 4.99999 mmol/L (8-16); Blood Urea Nitrogen 32 mg/dL (9-20); Carbon Dioxide > 40 mmol/L (22-30); Chloride 94 mmol/L (98-107); Estimated CRCL calculation 91 ml/min; Estimated Glomerular Filt Rate > 60; Glucose 97 mg/dL (75-110); Potassium 4.3 mmol/L (3.4-5.0); Sodium 139 mmol/L (137-145)
--- NOTE | 2020-08-29 15:18 | PC.NURSE ---
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
--- NOTE | 2020-08-29 17:31 | PM.IMPN ---
Progress Note: A&P Assessment and Plan (1) Shock: Code(s): R57.9 - Shock, unspecified Status: Acute Assessment and Plan: Cultured placed on antibiotics, BC NG so far, tapered pressors off. Much more alert. Shock secondary to hypovolemia and possibly sepsis combined (2) Acute kidney injury: Code(s): N17.9 - Acute kidney failure, unspecified Status: Acute Assessment and Plan: Probably secondary to dehydration hypotension. Creatinine has fallen from 9.1- 1.0 this afternoon with hydration. Renal sonogram showed no obstruction (3) Unresponsive episode: Code(s): R41.89 - Other symptoms and signs involving cognitive functions and awareness Status: Acute Assessment and Plan: Probable secondary to hypotension, resolved (4) Acute respiratory failure with hypoxia: Code(s): J96.01 - Acute respiratory failure with hypoxia Status: Acute Assessment and Plan: Continue to monitor probably from hypotension also but treat for infectious process, tapering off 02 (5) Hyperkalemia: Code(s): E87.5 - Hyperkalemia Status: Acute Assessment and Plan: Resolved with treatment of renal failure. Potassium 4.3 today (6) Hyponatremia: Code(s): E87.1 - Hypo-osmolality and hyponatremia Status: Acute Assessment and Plan: Sodium up to 139 (7) Abnormal chest x-ray: Code(s): R93.89 - Abnormal findings on diagnostic imaging of other specified body structures Status: Acute Assessment and Plan: Evidence of failure continue to monitor, echo still pending (8) Dementia: Code(s): F03.90 - Unspecified dementia without behavioral disturbance Status: Acute Assessment and Plan: Stable continue his antidepressant (9) Parkinson disease: Code(s): G20 - Parkinson's disease Status: Acute Assessment and Plan: continue pramipexole (10) Seizures: Code(s): R56.9 - Unspecified convulsions Status: Acute Assessment and Plan: continue gabapentin,keppr, and topiramate (11) 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 55-year-old white male with history of traumatic brain injury, seizure, thromboembolism, admitted with decrease in mental status and found to be in acute renal failure. was hypotensive, cultured and placed on antibiotics and pressors. Presently he is awake alert feeling better with no specific complaints Exam Narrative: Exam Narrative: Blood pressure 110/86 off pressors, pulse 72 saturating 99% on 2 L nasal cannula Pupil equal reactive light Mouth normal Lungs clear CV regular rate rhythm Abdomen is soft nontender Extremities without edema good distal pulses Neuro alert present time, conversing with no focal deficits Objective Data Vital Signs Vital Signs: Vital Signs - 24 hr 08/28/20 17:40 08/28/20 18:00 08/28/20 20:00 Temperature 36.1 C L 36.7 C Pulse Rate 74 97 Respiratory Rate 16 20 Blood Pressure 111/59 L 106/62 104/67 Pulse Oximetry 96 99 08/28/20 20:30 08/28/20 21:00 08/28/20 21:30 Temperature Pulse Rate 77 73 66 Respiratory Rate 18 16 20 Blood Pressure 105/78 100/59 L 101/60 Pulse Oximetry 97 96 95 08/28/20 22:00 08/28/20 22:48 08/28/20 23:00 Temperature Pulse Rate 73 69 67 Respiratory Rate 20 18 17 Blood Pressure 1
--- NOTE | 2020-08-29 19:01 | ECHO_ITS ---
Patient Info Name: Giuseppe Santana Age: 55 years : 1965 Gender: Male Wt: 270 lbs HR: 60 bpm BP: 120 / 68 mmHg Heart Rhythm: Sinus Rhythm Technical Quality: Good Exam Date: 08/29/2020 8:15 AM Exam Location: [facility] Patient Status: Inpatient Admit Date: 08/27/2020 Staff Ordering Physician: Nirmala Barone PA-C Sales Representative Electric Service: Vahe Osborne RDCS, RT Attending Provider: Issac Andrea MD Referring Physician: Lizabeth BRICEÑO; Exam Type: CA echo doppler color flow Study Info Indications J81.1 - Chronic pulmonary edema Complete two-dimensional, color flow and Doppler transthoracic echocardiogram is performed. History/Risk Factors Deep Vein Thrombosis (DVT): Acute Summary 1. Complete two-dimensional, color flow and Doppler transthoracic echocardiogram is performed. 2. Normal left ventricular size with borderline left ventricular hypertrophy. Good left ventricular systolic function with an estimated ejection fraction 55-60% and no wall motion abnormalities. Normal diastolic function. 3. No significant valve disease. 4. Mildly dilated inferior vena cava. 5. Normal sinus rhythm. Left Ventricle Left ventricular chamber dimension is normal. Left ventricular systolic function is normal, estimated at 55-60%. There is mildly increased left ventricular wall thickness. Left ventricular septal wall motion is normal. The left ventricular diastolic function is normal. Right Ventricle Right ventricular chamber dimension is normal. Right ventricular systolic function is normal. Left Atria Left atrial chamber dimension is normal. Right Atria Right atrial chamber dimension is normal. Aortic Valve The aortic valve is trileaflet. There is no aortic valve sclerosis. There is no aortic valve stenosis. There is no aortic valve regurgitation. Pulmonic Valve The pulmonic valve is normal. There is no pulmonic valve stenosis. There is no pulmonic regurgitation. Mitral Valve The mitral valve has normal leaflets. There is no mitral valve stenosis. There is no mitral valve regurgitation. Tricuspid Valve The tricuspid valve leaflets are normal. There is no significant tricuspid valve stenosis. There is trace tricuspid valve regurgitation. No pulmonary hypertension, estimated pulmonary arterial systolic pressure is Empty. Pericardium/Pleural The pericardium appears normal. There is no pericardial effusion. Inferior Vena Cava Dilated inferior vena cava with >50% collapse upon inspiration consistent with Empty right atrial pressure, Empty. Aorta The aortic root size at the sinus of Valsalva is normal. The prox ascending aorta size is normal. Left Ventricular Outflow Tract Name Value Normal LVOT 2D LVOT Diameter 2.6 cm LVOT Doppler LVOT Peak Gradient 4 mmHg LVOT Mean Gradient 2 mmHg LVOT VTI 19 cm LVOT VTI/AV VTI Ratio 0.9 LVOT Stroke Volume 98 ml LVOT CO 6.2 l/min
[2020-08-29] MEDS: IPRATROPIUM BR 0.02% INH SOLN 0.5 MG/2.5 ML VIAL INHALATION (22:20)
[2020-08-29] MEDS: ALBUTEROL SULFATE NEB 2.5 MG/0.5 ML INH 5 MG INHALATION (22:20)
[2020-08-30] VITALS (19 sets, daily range): BP systolic 101–122; BP diastolic 63–99; PULSE 67–96; RESP 12–21; TEMP 36.4–36.8; O2SAT 93–100
[2020-08-30] MEDS: ALPRAZolam (*CRX) 0.5 MG TABLET 1 MG PO ×3 (02:02→21:47)
[2020-08-30] MEDS: oxyCODONE HCL (*CRX) 5 MG TAB IR PO (02:03)
[2020-08-30 05:04] LABS: Hematocrit 33.1 % (42.0-52.0); Hemoglobin 10.6 g/dL (14.0-18.0); Mean Corpuscular Hemoglobin 29.4 pg (26-34); Mean Corpuscular Volume 91.9 fl (80-100); Mean Platelet Volume 8.5 fl (7.4-10.4); Platelet Count Result 160 k/mm3 (150-375); Red Cell Distribution Width 16.9 % (11.5-14.5); White Blood Count 6.5 K/mm3 (4.5-10.0)
[2020-08-30 05:28] LABS: Alanine Aminotransferase 7 U/L (4-50); Albumin Level 3.2 g/dL (3.5-5.1); Alkaline Phosphatase 90 U/L (38-126); Anion Gap 4 mmol/L (8-16); Aspartate Amino Transferase 25 U/L (17-59); Bilirubin,Total 0.6 mg/dL (0.2-1.3); Blood Urea Nitrogen 22 mg/dL (9-20); Calcium 8.8 mg/dL (8.4-10.2); Carbon Dioxide 37 mmol/L (22-30); Chloride 97 mmol/L (98-107); Estimated CRCL calculation 111 ml/min; Estimated Glomerular Filt Rate > 60; Glucose 94 mg/dL (75-110); Magnesium 1.5 mg/dL (1.6-2.3); Phosphorus 2.5 mg/dL (2.5-4.5); Potassium 4.1 mmol/L (3.4-5.0); Sodium 138 mmol/L (137-145)
[2020-08-30] MEDS: SODIUM CHLORIDE 0.45% 1,000 ML 100 ML IV CONT (06:05)
[2020-08-30] MEDS: LIDOCAINE 5% PATCH 1 PATCH TRANSDERM (08:49)
[2020-08-30] MEDS: APIXABAN 5 MG TABLET PO ×2 (08:50→21:34)
[2020-08-30] MEDS: CARBIDOPA/LEVODOPA 25/250 MG TABLET 1 TABLET PO ×3 (08:50→17:59)
[2020-08-30] MEDS: DIVALPROEX SODIUM 250 MG TABEC PO ×2 (08:50→21:35)
[2020-08-30] MEDS: PRAMIPEXOLE 0.125 MG TABLET PO (08:50)
[2020-08-30] MEDS: levETIRAcetam 500 MG TABLET PO ×2 (08:50→21:35)
[2020-08-30] MEDS: ESCITALOPRAM OXALATE 10 MG TABLET 20 MG PO (08:50)
[2020-08-30] MEDS: GABAPENTIN 100 MG CAPSULE 200 MG PO (08:51)
[2020-08-30] MEDS: CENTRAL LINE FLUSH 10 ML IV PUSH ×3 (08:51→21:36)
[2020-08-30] MEDS: MAGNESIUM SULF 2 GM/WATER 50ML 2 GM/50 ML BAG IVPB (08:51)
[2020-08-30] MEDS: ALBUTEROL SULFATE NEB 2.5 MG/0.5 ML INH 5 MG INHALATION ×3 (11:17→20:06)
[2020-08-30] MEDS: IPRATROPIUM BR 0.02% INH SOLN 0.5 MG/2.5 ML VIAL INHALATION ×3 (11:18→20:06)
[2020-08-30] MEDS: PENTOXIFYLLINE 400 MG TABCR PO ×2 (11:39→17:58)
--- NOTE | 2020-08-30 11:39 | PC.NURSE ---
home meds picked up by family
--- NOTE | 2020-08-30 12:01 | PM.PNNEP ---
Progress Note: A&P Assessment and Plan (1) Acute kidney injury: Code(s): N17.9 - Acute kidney failure, unspecified Status: Acute Assessment and Plan: The patient has acute kidney injury. Ultrasound was unremarkable. Urine electrolytes were non pre renal however he was on diuretics at the time. He is better. He is eating well. Blood pressure is fine now. We can stop IV fluids. (2) Hyponatremia: Code(s): E87.1 - Hypo-osmolality and hyponatremia Status: Acute Assessment and Plan: The patient has mild hyponatremia. This is most likely due to dehydration. Resolved (3) Hyperkalemia: Code(s): E87.5 - Hyperkalemia Status: Acute Assessment and Plan: Resolved (4) Shock: Code(s): R57.9 - Shock, unspecified Status: Acute Assessment and Plan: Blood pressure is improved. Off pressors. (5) Metabolic encephalopathy: Code(s): G93.41 - Metabolic encephalopathy Status: Acute Assessment and Plan: This is improved. (6) Abnormal chest x-ray: Code(s): R93.89 - Abnormal findings on diagnostic imaging of other specified body structures Status: Acute Assessment and Plan: Chest x-ray. COVID negative (7) History of DVT (deep vein thrombosis): Code(s): Z86.718 - Personal history of other venous thrombosis and embolism Status: Acute Assessment and Plan: He is on subcu heparin Additional Plan Subjective Date/time seen: 08/30/20 12:01 Interval history: Patient is alert. He feels better. Eating okay. He was on norepinephrine yesterday but this was stopped last evening. Blood pressure has been okay since then. Exam Narrative: Exam Narrative: WDWN in NAD skin no rash head ncat lungs clear to auscultation cor reg no rub abd BS+ nontender and soft ext no edema. Objective Data Vital Signs Vital Signs: Vital Signs - 24 hr 08/29/20 13:00 08/29/20 14:00 08/29/20 14:40 Temperature 36.1 C L Pulse Rate 85 70 Respiratory Rate 16 Blood Pressure 116/77 105/67 Pulse Oximetry 100 100 08/29/20 16:00 08/29/20 18:00 08/29/20 20:00 Temperature 35.8 C L 36.6 C Pulse Rate 68 81 74 Respiratory Rate 16 18 20 Blood Pressure 107/88 113/60 116/75 Pulse Oximetry 100 96 99 08/29/20 22:00 08/29/20 22:20 08/29/20 22:29 Temperature 36.7 C Pulse Rate 74 81 85 Respiratory Rate 20 18 18 Blood Pressure 117/54 L Pulse Oximetry 99 96 08/30/20 00:00 08/30/20 02:00 08/30/20 04:00 Temperature 36.6 C 36.4 C Pulse Rate 76 78 70 Respiratory Rate 16 14 Blood Pressure 116/63 116/69 115/99 H Pulse Oximetry 100 100 08/30/20 05:45 08/30/20 06:03 08/30/20 08:00 Temperature 36.6 C Pulse Rate 70 68 83 Respiratory Rate 20 12 Blood Pressure 101/73 119/64 Pulse Oximetry 98 97 08/30/20 11:18 08/30/20 11:27 08/30/20 11:41 Temperature Pulse Rate 84 73 Respiratory Rate 18 18 Blood Pressure Pulse Oximetry 99 96 Intake/Output Intake/Output: Intake & Output 08/27/20 08/28/20 08/29/20 08/30/20 23:59 23:59 23:59 23:59 Intake Total 2800 1009 4976.6667 1650 Output Total 57081 5601 1600 Balance 3514 -6908 -623.3333 50 Meds/Results Medications: Active Medications Generic Name Dose Route Start Last Admin Trade Name Freq PRN Reason Stop Dose Admin Acetaminophen 650 mg 08/28/20 14:34 08/29/20 17:48 Acetaminophen 325 Mg Tablet PO 650 mg Q6H PRN Administration Mild Pain (1-3) or Fever Albuterol 5 mg 08/29/20 14:00 08/30/20 11:17 Albuterol Sulfate Neb 2.5 Mg/0.5 Ml Inh INHALATION 5 mg Q6HRT LEONARD Administration Alprazolam 1 mg 08/27/20 21:23 08/30/20 08:56 Alprazolam (*Crx) 0.5 Mg Tablet PO 1 mg BID PRN Administration Anxiety Apixaban 5 mg 08/29/20 09:00 08/30/20 08:50 Apixaban 5 Mg Tablet PO 5 mg Q12HR LEONARD Administration Carbidopa/Levodopa 1 tablet 08/28/20 09:00 08/30/20 08:50
[2020-08-30] MEDS: oxyCODONE/ACETAMINOPHEN (*CRX) 5-325 MG TABLET 1 TABLET PO ×2 (12:06→21:47)
--- NOTE | 2020-08-30 12:06 | PCDIET ---
transferred pt to room 312 on 08-30 at 1152. Report given to Jasmin
--- NOTE | 2020-08-30 12:53 | PM.IMPN ---
Progress Note: A&P Assessment and Plan (1) Shock: Code(s): R57.9 - Shock, unspecified Status: Acute Assessment and Plan: Cultured placed on antibiotics, BC NG so far, tapered pressors off 08/29. Much more alert. Shock secondary to hypovolemia and possibly sepsis combined (2) Acute kidney injury: Code(s): N17.9 - Acute kidney failure, unspecified Status: Acute Assessment and Plan: Probably secondary to dehydration hypotension. Creatinine has fallen from 9.1- 0.8 this afternoon with hydration. Renal sonogram showed no obstruction (3) Unresponsive episode: Code(s): R41.89 - Other symptoms and signs involving cognitive functions and awareness Status: Acute Assessment and Plan: Probable secondary to hypotension, resolved (4) Acute respiratory failure with hypoxia: Code(s): J96.01 - Acute respiratory failure with hypoxia Status: Acute Assessment and Plan: Continue to monitor probably from hypotension also but treat for infectious process, tapering off 02 (5) Hyperkalemia: Code(s): E87.5 - Hyperkalemia Status: Acute Assessment and Plan: Resolved with treatment of renal failure. Potassium 4.1 today (6) Hyponatremia: Code(s): E87.1 - Hypo-osmolality and hyponatremia Status: Acute Assessment and Plan: Sodium up to 138 (7) Abnormal chest x-ray: Code(s): R93.89 - Abnormal findings on diagnostic imaging of other specified body structures Status: Acute Assessment and Plan: Evidence of failure continue to monitor, echo normal EF 55% and no pul HTN (8) Dementia: Code(s): F03.90 - Unspecified dementia without behavioral disturbance Status: Acute Assessment and Plan: Stable continue his antidepressant (9) Parkinson disease: Code(s): G20 - Parkinson's disease Status: Acute Assessment and Plan: continue pramipexole and carbidopa-levodopa (10) Seizures: Code(s): R56.9 - Unspecified convulsions Status: Acute Assessment and Plan: continue gabapentin,keppra, and topiramate (11) 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 55-year-old white male with history of traumatic brain injury, seizure, thromboembolism, admitted with decrease in mental status and found to be in acute renal failure. was hypotensive, cultured and placed on antibiotics and pressors. Presently he is awake alert feeling better with no specific complaints off pressors and doing well Exam Narrative: Exam Narrative: Blood pressure 118/64 off pressors 24 hours, pulse 72 saturating 96% on 2 L nasal cannula Pupil equal reactive light Mouth normal Lungs clear CV regular rate rhythm Abdomen is soft nontender Extremities without edema good distal pulses, venous stasis changes Neuro alert present time, conversing with no focal deficits Objective Data Vital Signs Vital Signs: Vital Signs - 24 hr 08/29/20 13:00 08/29/20 14:00 08/29/20 14:40 Temperature 36.1 C L Pulse Rate 85 70 Respiratory Rate 16 Blood Pressure 116/77 105/67 Pulse Oximetry 100 100 08/29/20 16:00 08/29/20 18:00 08/29/20 20:00 Temperature 35.8 C L 36.6 C Pulse Rate 68 81 74 Respiratory Rate 16 18 20 Blood Pressure 107/88 113/60 116/75 Pulse Oximetry 100 96 99 08/29/20 22:00 08/29/20
[2020-08-30] MEDS: oxyCODONE HCL (*CRX) 10 MG TAB SR 12HR PO (17:58)
[2020-08-30 19:29] LABS: Legionella pneumophila Ag Ur Not Detected (Not Detected)
[2020-08-30 22:10] LABS: Pneumococcal Antigen Urine Not Detected (Not Detected)
[2020-08-31] VITALS (12 sets, daily range): BP systolic 109–134; BP diastolic 64–84; PULSE 74–81; RESP 16–21; TEMP 36.3–36.6; O2SAT 96–100
[2020-08-31 00:12] LABS: Osmolality, Urine 270 mOsm/kg (50-1200)
[2020-08-31] MEDS: ALBUTEROL SULFATE NEB 2.5 MG/0.5 ML INH 5 MG INHALATION ×5 (02:00→20:23)
[2020-08-31] MEDS: IPRATROPIUM BR 0.02% INH SOLN 0.5 MG/2.5 ML VIAL INHALATION ×5 (02:00→20:23)
[2020-08-31] MEDS: ACETAMINOPHEN 325 MG TABLET 650 MG PO (02:13)
[2020-08-31] MEDS: oxyCODONE/ACETAMINOPHEN (*CRX) 5-325 MG TABLET 1 TABLET PO ×3 (05:19→23:59)
[2020-08-31 06:08] LABS: Hematocrit 32.7 % (42.0-52.0); Hemoglobin 10.3 g/dL (14.0-18.0); Mean Corpuscular HGB Conc 31.5 g/dl (32-36); Mean Corpuscular Hemoglobin 28.4 pg (26-34); Mean Corpuscular Volume 90.1 fl (80-100); Mean Platelet Volume 8.6 fl (7.4-10.4); Platelet Count Result 161 k/mm3 (150-375); Red Blood Count 3.63 M/mm3 (4.6-6.20); Red Cell Distribution Width 17.1 % (11.5-14.5)
[2020-08-31] MEDS: CENTRAL LINE FLUSH 10 ML IV PUSH ×3 (06:14→20:20)
[2020-08-31 06:17] LABS: Alanine Aminotransferase 14 U/L (4-50); Albumin Level 3.4 g/dL (3.5-5.1); Alkaline Phosphatase 88 U/L (38-126); Anion Gap 5 mmol/L (8-16); Aspartate Amino Transferase 30 U/L (17-59); Bilirubin,Total 0.7 mg/dL (0.2-1.3); Blood Urea Nitrogen 14 mg/dL (9-20); Carbon Dioxide 34 mmol/L (22-30); Chloride 97 mmol/L (98-107); Estimated CRCL calculation 111 ml/min; Estimated Glomerular Filt Rate > 60; Glucose 121 mg/dL (75-110); Magnesium 1.4 mg/dL (1.6-2.3); Potassium 3.4 mmol/L (3.4-5.0); Sodium 136 mmol/L (137-145)
[2020-08-31] MEDS: oxyCODONE HCL (*CRX) 10 MG TAB SR 12HR PO ×2 (08:23→20:19)
[2020-08-31] MEDS: POTASSIUM CHLORIDE 20 MEQ TABLET 40 MEQ PO ×2 (08:23→13:16)
[2020-08-31] MEDS: ESCITALOPRAM OXALATE 10 MG TABLET 20 MG PO (08:23)
[2020-08-31] MEDS: GABAPENTIN 100 MG CAPSULE 200 MG PO (08:23)
[2020-08-31] MEDS: levETIRAcetam 500 MG TABLET PO ×2 (08:24→20:19)
[2020-08-31] MEDS: DIVALPROEX SODIUM 250 MG TABEC PO ×2 (08:24→20:19)
[2020-08-31] MEDS: LIDOCAINE 5% PATCH 1 PATCH TRANSDERM (08:24)
[2020-08-31] MEDS: PRAMIPEXOLE 0.125 MG TABLET PO (08:24)
[2020-08-31] MEDS: PENTOXIFYLLINE 400 MG TABCR PO ×2 (08:24→17:10)
[2020-08-31] MEDS: CARBIDOPA/LEVODOPA 25/250 MG TABLET 1 TABLET PO ×3 (08:25→17:11)
[2020-08-31] MEDS: APIXABAN 5 MG TABLET PO ×2 (08:25→20:19)
[2020-08-31] MEDS: MAGNESIUM SULFATE 3GM/D5W100ML 3 GM/100 ML BAG IVPB (08:26)
--- NOTE | 2020-08-31 09:08 | PCSTNOTE ---
Please refer to the Modified Barium Swallow Evaluation on 08/29/20in the EMR.
--- NOTE | 2020-08-31 15:06 | PM.IMPN ---
Progress Note: A&P Assessment and Plan (1) Shock: Code(s): R57.9 - Shock, unspecified Status: Acute Assessment and Plan: Cultured placed on antibiotics, BC NG , tapered pressors off 08/29. Much more alert. Shock secondary to hypovolemia and possibly sepsis combined (2) Acute kidney injury: Code(s): N17.9 - Acute kidney failure, unspecified Status: Acute Assessment and Plan: Probably secondary to dehydration hypotension. Creatinine has fallen from 9.1- 0.8 with hydration. Renal sonogram showed no obstruction (3) Unresponsive episode: Code(s): R41.89 - Other symptoms and signs involving cognitive functions and awareness Status: Acute Assessment and Plan: Probable secondary to hypotension, resolved (4) Acute respiratory failure with hypoxia: Code(s): J96.01 - Acute respiratory failure with hypoxia Status: Acute Assessment and Plan: Continue to monitor probably from hypotension also but treat for infectious process, on RA now (5) Hyperkalemia: Code(s): E87.5 - Hyperkalemia Status: Acute Assessment and Plan: Resolved with treatment of renal failure. Potassium 3.4 today (6) Hyponatremia: Code(s): E87.1 - Hypo-osmolality and hyponatremia Status: Acute Assessment and Plan: Sodium up to 136 (7) Abnormal chest x-ray: Code(s): R93.89 - Abnormal findings on diagnostic imaging of other specified body structures Status: Acute Assessment and Plan: Evidence of failure but echo normal EF 55% and no pul HTN . No aspiration on MBS and continue rx for possible pna (8) Dementia: Code(s): F03.90 - Unspecified dementia without behavioral disturbance Status: Acute Assessment and Plan: Stable continue his antidepressant (9) Parkinson disease: Code(s): G20 - Parkinson's disease Status: Acute Assessment and Plan: continue pramipexole and carbidopa-levodopa (10) Seizures: Code(s): R56.9 - Unspecified convulsions Status: Acute Assessment and Plan: continue gabapentin,keppra, and topiramate (11) Current use of [facility] anticoagulation: Code(s): Z79.01 - half-way (current) use of anticoagulants Status: Acute Assessment and Plan: Eliquis restarted with creatinine normalizing 08/29 (12) Metabolic encephalopathy: Code(s): G93.41 - Metabolic encephalopathy Status: Acute Assessment and Plan: Resolved now possibly secondary to uremia and or septic like picture (13) Chronic pain syndrome: Code(s): G89.4 - Chronic pain syndrome Status: Acute Assessment and Plan: resumed narcatics to avoid withdrawal Subjective Date/time seen: 08/31/20 15:06 Interval history: Date of visit 08/31. 55-year-old white male with history of traumatic brain injury, seizure, thromboembolism, admitted with decrease in mental status and found to be in acute renal failure. was hypotensive, cultured and placed on antibiotics and pressors. Presently he is awake alert feeling better with no specific complaints off pressors and doing well Exam Narrative: Exam Narrative: Blood pressure 116/64 off pressors 48 hours, pulse 80 saturating 97% on RA Pupil equal reactive light Mouth normal Lungs clear CV regular rate rhythm Abdomen is soft nontender Extremities without edema good distal pulses, venous stasis changes Neuro alert present time, conversing with no focal deficits Objective Data Vital Signs Vital Signs: Vital Signs - 24 hr 08/30/20 16:00 08/30/20 16:16 08/30/20 16:24 Temperature 36.5 C Pulse Rate 67 96 72 Respiratory Rate 18 18 18 Blood Pressure 122/67 Pulse Oximetry 100 08/30/20 17:31 08/30/20 20:07 08/30/20 20:10 Temperature Pulse Rate 76 76 Respiratory Rate 18 18 Blood Pressure Pulse Oximetry 93 99 08/30/20 20:13 08/30/20 21:03 08/30/20 22:00 Temperature 36.8 C Puls
[2020-09-01] MEDS: ALBUTEROL SULFATE NEB 2.5 MG/0.5 ML INH 5 MG INHALATION (01:38)
[2020-09-01 01:39] VITALS: PULSE 70; RESP 16
[2020-09-01] MEDS: IPRATROPIUM BR 0.02% INH SOLN 0.5 MG/2.5 ML VIAL INHALATION (01:39)
[2020-09-01 01:50] VITALS: PULSE 77; RESP 18
[2020-09-01] MEDS: CENTRAL LINE FLUSH 20 ML IV PUSH (05:37)
[2020-09-01] MEDS: ALPRAZolam (*CRX) 0.5 MG TABLET 1 MG PO (05:37)
[2020-09-01] MEDS: CENTRAL LINE FLUSH 10 ML IV PUSH (05:37)
[2020-09-01 05:41] LABS: Hematocrit 34.7 % (42.0-52.0); Mean Corpuscular HGB Conc 31.7 g/dl (32-36); Mean Corpuscular Hemoglobin 29.3 pg (26-34); Mean Corpuscular Volume 92.3 fl (80-100); Mean Platelet Volume 8.3 fl (7.4-10.4); Platelet Count Result 162 k/mm3 (150-375); Red Blood Count 3.76 M/mm3 (4.6-6.20); Red Cell Distribution Width 17.5 % (11.5-14.5); White Blood Count 6.7 K/mm3 (4.5-10.0)
[2020-09-01 05:54] LABS: Alanine Aminotransferase 17 U/L (4-50); Albumin Level 3.8 g/dL (3.5-5.1); Alkaline Phosphatase 104 U/L (38-126); Anion Gap 4 mmol/L (8-16); Aspartate Amino Transferase 37 U/L (17-59); Bilirubin,Total 0.7 mg/dL (0.2-1.3); Blood Urea Nitrogen 11 mg/dL (9-20); Calcium 9.4 mg/dL (8.4-10.2); Carbon Dioxide 31 mmol/L (22-30); Chloride 102 mmol/L (98-107); Estimated CRCL calculation 124 ml/min; Estimated Glomerular Filt Rate > 60; Glucose 90 mg/dL (75-110); Magnesium 1.5 mg/dL (1.6-2.3); Potassium 4.7 mmol/L (3.4-5.0); Sodium 137 mmol/L (137-145)
[2020-09-01 06:50] VITALS: BP 100/65; PULSE 75; RESP 20; TEMP 36.3; O2SAT 94
[2020-09-01] MEDS: oxyCODONE HCL (*CRX) 10 MG TAB SR 12HR PO (08:55)
[2020-09-01] MEDS: levETIRAcetam 500 MG TABLET PO (08:55)
[2020-09-01] MEDS: CARBIDOPA/LEVODOPA 25/250 MG TABLET 1 TABLET PO (08:55)
[2020-09-01] MEDS: GABAPENTIN 100 MG CAPSULE 200 MG PO (08:55)
[2020-09-01] MEDS: PRAMIPEXOLE 0.125 MG TABLET PO (08:55)
[2020-09-01] MEDS: APIXABAN 5 MG TABLET PO (08:55)
[2020-09-01] MEDS: MAGNESIUM SULF 2 GM/WATER 50ML 2 GM/50 ML BAG IVPB (08:56)
[2020-09-01] MEDS: DIVALPROEX SODIUM 250 MG TABEC PO (08:56)
[2020-09-01] MEDS: ESCITALOPRAM OXALATE 10 MG TABLET 20 MG PO (08:56)
[2020-09-01] MEDS: PENTOXIFYLLINE 400 MG TABCR PO (08:56)
[2020-09-01] MEDS: AZITHROMYCIN 250 MG TABLET 500 MG PO (10:37)
--- NOTE | 2020-09-01 17:44 | PM.DS ---
DS: Admitting Diagnosis Admitting Diagnosis Admitting Diagnosis: Lethargic with altered mental status. DS: Discharge Diagnosis Discharge Diagnosis (1) Shock: Code(s): R57.9 - Shock, unspecified Status: Acute Assessment and Plan: Cultured placed on antibiotics, BC NG , tapered pressors off 08/29. Much more alert. Shock secondary to hypovolemia and possibly sepsis combined As above cultures all negative but continued ceftriaxone and azithromycin while here. Not discharged on any antibiotics (2) Acute kidney injury: Code(s): N17.9 - Acute kidney failure, unspecified Status: Acute Assessment and Plan: Probably secondary to dehydration hypotension. Creatinine has fallen from 9.1- 0.8 with hydration. Renal sonogram showed no obstruction (3) Unresponsive episode: Code(s): R41.89 - Other symptoms and signs involving cognitive functions and awareness Status: Acute Assessment and Plan: Probable secondary to hypotension, resolved (4) Acute respiratory failure with hypoxia: Code(s): J96.01 - Acute respiratory failure with hypoxia Status: Acute Assessment and Plan: probably from hypotension also but treat for infectious process, on RA now saturating well at discharge (5) Hyperkalemia: Code(s): E87.5 - Hyperkalemia Status: Acute Assessment and Plan: Resolved with treatment of renal failure. Potassium 4.7 at discharge (6) Hyponatremia: Code(s): E87.1 - Hypo-osmolality and hyponatremia Status: Acute Assessment and Plan: Sodium up to 137 at discharge (7) Abnormal chest x-ray: Code(s): R93.89 - Abnormal findings on diagnostic imaging of other specified body structures Status: Acute Assessment and Plan: Evidence of failure but echo normal EF 55% and no pul HTN . No aspiration on MBS and continued to rx for possible pna while here with the ceftriaxone and azithromycin. 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: Code(s): Z79.01 - penitentiary (current) use of anticoagulants Status: Acute Assessment and Plan: Eliquis restarted with creatinine normalizing 08/29 (12) Metabolic encephalopathy: Code(s): G93.41 - Metabolic encephalopathy Status: Acute Assessment and Plan: Resolved now possibly secondary to uremia and or septic like picture (13) Chronic pain syndrome: Code(s): G89.4 - Chronic pain syndrome Status: Acute Assessment and Plan: resumed narcatics and has an appointment to follow-up with pain management week september DS: Summary Hospital Course Hospital Course: 55-year-old gentleman with history of DVT and traumatic brain injury with subsequent seizure disorder and Parkinson's admitted with altered mental status and found to be hypotensive with acute renal failure. Thought to be possibly septic but no obvious source other than possible pulmonary infiltrate and was treated with IV antibiotics ceftriaxone azithromycin. Cultures were all negative. With hydration and pressors to maintain mean arterial pressure creatinine returned entirely to normal at 0.8 by time of discharge.. Seen by nephrology and renal sonogram no obstruction. Medication will be the same on discharge other than we decreased his furosemide dose to 40 daily and spironolactone to 50 daily. He will have a basic metab
== END 2020-09-01 12:20 | disposition home health service (06) | DRG 871 ==
LOC: ANHED 17:00 → ANHIMU 18:20 → ANH3MEDSUR 08-30 13:26 → ANHIMU 09-04 17:47
PROVIDERS: Internal Medicine; Internal Medicine Nephrology; Physician Assistant; Admitting Provider Family Medicine; Emergency Provider Emergency Medicine; PCP Emergency Medicine; Visit Provider Internal Medicine
DX: A41.9 Sepsis, unspecified organism (principal); R57.1 Hypovolemic shock; J96.01 Acute respiratory failure with hypoxia; G93.41 Metabolic encephalopathy; R65.21 Severe sepsis with septic shock; N17.9 Acute kidney failure, unspecified; E87.1 Hypo-osmolality and hyponatremia; E87.5 Hyperkalemia; Z20.828 Contact with and (suspected) exposure to other viral communicable diseases; R93.89 Abnormal findings on diagnostic imaging of other specified body structures; G20 Parkinson's disease; F02.80 Dementia in other diseases classified elsewhere, unspecified severity, without behavioral disturbance, psychotic disturbance, mood disturbance, and anxiety; G40.909 Epilepsy, unspecified, not intractable, without status epilepticus; I25.10 Atherosclerotic heart disease of native coronary artery without angina pectoris; I25.2 Old myocardial infarction; G89.4 Chronic pain syndrome; F17.210 Nicotine dependence, cigarettes, uncomplicated; F41.8 Other specified anxiety disorders; E04.1 Nontoxic single thyroid nodule; I73.9 Peripheral vascular disease, unspecified; Z79.01 Long term (current) use of anticoagulants; Z79.891 Long term (current) use of opiate analgesic; Z86.718 Personal history of other venous thrombosis and embolism; Z87.820 Personal history of traumatic brain injury; Z95.5 Presence of coronary angioplasty implant and graft
CPT/HCPCS: 36415; 36556; 71045; 76775; 80048; 80053; 80069; 80164; 80307; 81001; 82140; 82533; 82550; 82570; 82607; 82728; 83605; 83615; 83735; 83880; 83930; 83935; 84100; 84295; 84300; 84439; 84443; 84480; 84484; 85025; 85027; 86140; 87040; 87086; 87449; 87635; 87899; 92526; 92610; 92611; 93005; 93306; 93970; 94640; 96360; 96361; 97110; 97116; 97161; 97165; 97530; 97535; 99285; A9270; C1751; C9803; J0456; J0696; J1644; J1815; J3475; J7030; J7050; J7070; U0003

== ENCOUNTER → 2021-05-11 00:59 | Outpatient (CLI) | payer MEDICARE, SELFPAY ==
[2021-05-11 18:26] LABS: SARS-CoV-2 RNA PCR Negative
== END ==
PROVIDERS: PCP Emergency Medicine; Visit Provider Internal Medicine Gastroenterology
DX: Z01.812 Encounter for preprocedural laboratory examination (principal); Z20.822 Contact with and (suspected) exposure to COVID-19
CPT/HCPCS: C9803; U0003; U0005

== ENCOUNTER 2021-05-14 00:16 | Day surgery (SDC) | payer MEDICARE, SELFPAY ==
[2021-05-01 11:33] VITALS: BMI 32.2
[2021-05-14 09:52] VITALS: BP 112/63; PULSE 58; RESP 20; TEMP 35.7; O2SAT 95
--- NOTE | 2021-05-14 09:52 | WPDANESEPPF ---
Anes - Initial Pre Proc Eval Procedure: Operation Date: 05/14/21 10:45 Proposed Procedures p Esophagogastroduodenoscopy & Colonoscopy - Torsten Craig MD Date/Time: 05/14/21 09:52 Surgeon: Torsten Craig MD Pre Op Diagnosis: positive cologuard, anemia Patient Data Age: 55 Gender: M Height: 1.91 m Weight: 117 kg Allergies Allergy/AdvReac Type Severity Reaction Status Date / Time No Known Allergies Allergy Verified 05/14/21 09:50 Home Medications Medication Instructions Recorded Confirmed Type Eliquis 5 mg PO BID 09/23/19 05/14/21 History alprazolam 1 mg PO BID 09/23/19 05/01/21 History carbidopa-levodopa 1 tablet PO TID 09/23/19 05/01/21 History divalproex 250 mg PO BID 09/23/19 05/01/21 History escitalopram oxalate 20 mg PO DAILY 09/23/19 05/01/21 History gabapentin 300 mg PO TID 09/23/19 05/01/21 History levetiracetam 750 mg PO BID 09/23/19 05/14/21 History lovastatin 20 mg PO QPM 09/23/19 05/01/21 History pentoxifylline 400 mg PO BID 09/23/19 05/14/21 History topiramate 25 mg PO QPM 09/23/19 05/01/21 History oxycodone-acetaminophen 1 tablet PO TID 08/27/20 05/01/21 History furosemide 40 mg PO DAILY #0 tablet 09/01/20 05/01/21 Rx spironolactone 50 mg PO DAILY #0 tablet 09/01/20 05/01/21 Rx oxycodone myristate [Xtampza ER] 13.5 mg PO BID 05/01/21 05/01/21 History Patient hx anesthesia problems: none Family hx anesthesia problems: none [facility] Past Medical History Medical History (Updated 02/12/21 @ 14:27 by PAULA Santana) Arthritis Chronic pain syndrome Chronic seasonal allergic rhinitis Current use of residential anticoagulation Deep vein thrombosis of right lower limb (~04/2019) Extensive, occlusive DVT from the right common femoral vein through the peroneal and posterior tibial veins. Attempted angioplasty was unsuccessful and he was transferred to [place] for further and intervention. Now on long-term anticoagulation with Eliquis. Dementia Depression with anxiety Impetigo (~09/2019) Left thyroid nodule Noted on CT in April 2019. 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 Obesity (BMI 30.0-34.9) Parkinson disease Peripheral vascular disease Seizures Traumatic brain injury Wrist fracture Surgical History Surgical History History of mastoidectomy With resultant mild, chronic hearing loss. History of tonsillectomy Family History Family History Mother Cervical cancer Skin cancer Social History Social History Social History: The patient lives in his own home in [place] but he has been staying with his mother recently after the of his father. He ambulates with a walker and has a friend come to the house daily to help with chores, etc. He smoked just about a pack of cigarettes per day since he was a teenager and now smokes maybe a few cigarettes a day. No alcohol or illicit substance use. He designates his friend, Maryse Garcia, as his surrogate decision maker and he wishes to be a full code. Smoking packs per day: 1 Smoking cigarettes per day: 20.0 Years smoked: 30 Smoking pack-years: 30.00 Smoking status: Heavy tobacco smoker Tobacco type: cigarettes Second hand tobacco smoke exposure: Yes Alcohol intake: never Substance use: never Substance use type: does not use Living arrangements: with family Gender identity (if verbalized by the patient): Male Spiritual care concerns: No Agree to blood products: Yes Anes - Eval Final PreProcedure Day of Procedure 05/14/21 09:52 Patient weight: obese Heart: regular rate and rhythm Lungs: clear to auscultation and normal air movement Airway: Mallampati scale clas
[2021-05-14] MEDS: LACTATED RINGERS 1,000 ML 150 ML IV CONT (09:59)
--- NOTE | 2021-05-14 10:50 | PM.HPGS ---
History of Present Illness History of Present Illness Consent: Risks, benefits, and alternatives have been discussed and questions answered. Patient agrees to proceed with procedure. Chief complaint: positive cologuard, anemia Narrative: Giuseppe Santana is a 55 year old male here for egd and colonoscopy, has history of DVT (on Eliquis), seizures, TBI with Parkinsons and dementia. Last office visit for evaluation of iron deficiency anemia and positive Cologuard. Never had scopes. Review of Systems Constitutional: Constitutional: Denies headache(s) and Denies weakness Eyes: Eyes: Denies blurry vision ENT: Reports Normal hearing present, Denies headache(s) and Denies neck pain Cardiovascular: Cardiovascular: Denies chest pain and Denies dyspnea Respiratory: Respiratory: Denies dyspnea Gastrointestinal: Gastrointestinal: Reports no additional gastrointestinal complaints Genitourinary: Genitourinary: Denies dysuria Musculoskeletal: Musculoskeletal: Denies neck pain Integumentary/Breasts: Skin/Breast: Denies dry skin Neurologic: Reports Normal hearing present, Denies headache(s) and Denies weakness Psychiatric: Psychiatric: Denies anxiety Endocrine: Endocrine: Denies change in body appearance Hematologic/Lymphatic: Hematologic/Lymphatic: Denies easy bleeding Allergic/Immunologic: Allergic/Immunologic: Denies urticaria PMFSH Past Medical History Medical History (Updated 05/14/21 @ 10:51 by Torsten Craig MD) Arthritis Chronic pain syndrome Chronic seasonal allergic rhinitis Current use of assisted anticoagulation Deep vein thrombosis of right lower limb (~04/2019) Extensive, occlusive DVT from the right common femoral vein through the peroneal and posterior tibial veins. Attempted angioplasty was unsuccessful and he was transferred to [place] for further and intervention. Now on long-term anticoagulation with Eliquis. Dementia Depression with anxiety Impetigo (~09/2019) Iron deficiency anemia Left thyroid nodule Noted on CT in April 2019. 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 Obesity (BMI 30.0-34.9) Parkinson disease Peripheral vascular disease Positive colorectal cancer screening using Cologuard test Seizures Traumatic brain injury Wrist fracture Surgical History Surgical History History of mastoidectomy With resultant mild, chronic hearing loss. History of tonsillectomy Family History Family History Mother Cervical cancer Skin cancer Social History Social History Social History: The patient lives in his own home in [place] but he has been staying with his mother recently after the of his father. He ambulates with a walker and has a friend come to the house daily to help with chores, etc. He smoked just about a pack of cigarettes per day since he was a teenager and now smokes maybe a few cigarettes a day. No alcohol or illicit substance use. He designates his friend, Maryse Garcia, as his surrogate decision maker and he wishes to be a full code. Smoking packs per day: 1 Smoking cigarettes per day: 20.0 Years smoked: 30 Smoking pack-years: 30.00 Smoking status: Heavy tobacco smoker Tobacco type: cigarettes Second hand tobacco smoke exposure: Yes Alcohol intake: never Substance use: never Substance use type: does not use Living arrangements: with family Gender identity (if verbalized by the patient): Male Spiritual care concerns: No Agree to blood products: Yes Meds Home Medications and Allergies Home Medications Medication Instructions Recorded Confirmed Type Eliquis 5 mg PO BID 09/23/19 05/14/21 History alprazolam 1 mg
[2021-05-14 11:40] VITALS: BP 129/78; PULSE 67; RESP 24; O2SAT 92
[2021-05-14 11:50] VITALS: BP 117/81; PULSE 66; RESP 22; O2SAT 93
[2021-05-14 12:00] VITALS: BP 117/77; PULSE 64; RESP 14; O2SAT 99
== END 2021-05-14 12:24 | disposition home or self-care (01) ==
PROVIDERS: PCP Emergency Medicine; Visit Provider Internal Medicine Gastroenterology
PROC: 0DJ08ZZ Inspection of Upper Intestinal Tract, Via Natural or Artificial Opening Endoscopic (ICD-10-PCS; CPT 43235; principal; 2021-05-14 10:45)
DX: D50.0 Iron deficiency anemia secondary to blood loss (chronic) (principal); K29.50 Unspecified chronic gastritis without bleeding; D12.2 Benign neoplasm of ascending colon; D12.3 Benign neoplasm of transverse colon; R19.5 Other fecal abnormalities; K57.30 Diverticulosis of large intestine without perforation or abscess without bleeding; M19.90 Unspecified osteoarthritis, unspecified site; I25.2 Old myocardial infarction; Z79.01 Long term (current) use of anticoagulants; Z86.718 Personal history of other venous thrombosis and embolism; F03.90 Unspecified dementia, unspecified severity, without behavioral disturbance, psychotic disturbance, mood disturbance, and anxiety; F41.8 Other specified anxiety disorders; E04.1 Nontoxic single thyroid nodule; G20 Parkinson's disease; I73.9 Peripheral vascular disease, unspecified; F17.210 Nicotine dependence, cigarettes, uncomplicated; Z95.5 Presence of coronary angioplasty implant and graft; E66.9 Obesity, unspecified; Z68.33 Body mass index [BMI] 33.0-33.9, adult
CPT/HCPCS: 43239; 45385; 88305; C9803; J2704; J7120; U0003; U0005

== ENCOUNTER 2021-07-05 14:13 | Inpatient (IN) | payer MEDICARE, SELFPAY ==
[2021-07-05] VITALS (14 sets, daily range): BP systolic 92–112; BP diastolic 56–67; PULSE 62–94; RESP 12–25; TEMP 36.4–37; O2SAT 92–100; BMI 29.2
--- NOTE | ~2021-07-05 | XR_ITS ---
EXAMINATION: XR chest 1V portable DATE: 07/05/2021 18:58 INDICATION: Chest pain. Transient alteration of awareness. TECHNIQUE: frontal view of the chest was obtained. COMPARISON: Chest radiograph dated 08/29/2020 FINDINGS: Opacities in the right mid to lower lung zones with blunting at the costophrenic angle consistent wit h small right pleural effusion and associated atelectasis and/or pneumonia. Left lung is clear. No pn eumothorax or left pleural effusion. The cardiomediastinal silhouette is normal. IMPRESSION: 1. Small right pleural effusion with associated atelectasis and/or pneumonia. Reviewed, dictated and finalized at location A.
--- NOTE | ~2021-07-05 | CT_ITS ---
EXAMINATION: CT brain wo con EXAM DATE: 07/05/2021 15:09 INDICATION: Head injury. TECHNIQUE: Spiral CT of the head was performed without contrast. Axial, coronal and sagittal images were reviewed. The dose-length product (DLP) for this examination was 681.00 mGy-cm. The exposure w as tailored according to patient size, and iterative reconstruction (ASIR) was used as additional dos e reduction technique. Comparison is made to prior examination from 04/13/2018. FINDINGS: There is no acute intraparenchymal hemorrhage. No evidence of intraparenchymal brain mass lesion. No evidence of acute infarction. There is no mass effect or midline shift. The ventricles are normal in size. There are no extra-axial collections. There are no acute calvarial fractures. T he orbits are unremarkable. Soft tissue is unremarkable. The visualized sinuses and mastoid air gilberto ls are well aerated. IMPRESSION: 1. No acute intracranial findings. Reviewed, dictated and finalized at location B.
--- NOTE | ~2021-07-05 | XR_ITS ---
EXAMINATION: XR chest 1V portable DATE: 07/08/2021 05:54 INDICATION: Pneumonia TECHNIQUE: frontal view of the chest was obtained. COMPARISON: Chest radiograph dated 07/05/21 FINDINGS: Opacities in the right mid and lower lung zone with blunting at costophrenic angle consistent with sm all right pleural effusion and associated atelectasis and/or pneumonia. Additional increased perihila r opacities with bronchial wall thickening. No pneumothorax or left-sided pleural effusion. The cardi omediastinal silhouette is normal. IMPRESSION: 1. Perihilar opacities with bronchial wall thickening consistent with pneumonia and/or pulmonary serge a. 2. Unchanged small right pleural effusion with right basilar atelectasis and/or pneumonia. Reviewed, dictated and finalized at location A. IMPRESSION: 1. Perihilar opacities with bronchial wall thickening consistent with pneumonia and/or pulmonary edema. 2. Unchanged small right pleural effusion with right basilar atelectasis and/or pneumonia.
[2021-07-05 14:28] LABS: Glucose Point of Care 160 mg/dl (65-105)
--- NOTE | 2021-07-05 14:33 | ECG_ITS ---
Measurements Intervals [place] Rate: 94 P: 10 TX: 120 QRS: -37 QRSD: 109 T: 10 QT: 369 QTc: 461 Interpretive Statements SINUS RHYTHM ATRIAL AND VENTRICULAR PREMATURE COMPLEXES LEFT AXIS DEVIATION POOR R WAVE PROGRESSION, ANTERIOR LEADS BORDERLINE T WAVE ABNORMALITY- ANT/INF LEADS BASELINE WANDER- II, III, V1-V6 BORDERLINE ECG Electronically Signed On 07-06-2021 7:29:41 CDT by Galindo Watts D.O.
[2021-07-05 14:45] LABS: Alveolar/Arterial O2 Gradient 387.1 mmHg; Base Excess ABG 12.1 mEq/l (+/-2.0); Carboxyhemoglobin 2.5 % THb (0-2.0); Fractional Inspired Oxygen 100 %; HCO3 ABG 41.7 mEq/l (22.0-26.0); Methemoglobin ABG 0.4 %THb (0-1.5); Oxygen Content ABG 18.9 %vol (16.0-22.0); Oxygen Saturation ABG 99.5 % (95.0-100.0); Oxyhemoglobin 96.4 % THb (90.0-100.0); PO2 ABG 244.3 mmHg (80.0-100.0); PO2 FiO2 Ratio Arterial Blood 2.44 %; Reduced Hemoglobin 0.7 %THb (0-5.0); Total Hemoglobin 13.5 g/dL (12.0-18.0); pH ABG 7.326 (7.350-7.450)
[2021-07-05 14:46] LABS: Device NON-REBREATHER MASK; Modified Allen's Test Unable to perform; PCO2 ABG 81.6 mmHg (35.0-45.0); Site Drawn RIGHT RADIAL
--- NOTE | 2021-07-05 14:52 | ED.GENADULT ---
HPI - General Adult General Chief complaint: Weakness Stated complaint: poss seizure Time Seen by Provider: 07/05/21 14:32 Source: patient Mode of arrival: ambulatory Limitations: no limitations History of Present Illness HPI narrative: Patient is a 56-year-old male brought in by EMS due to unresponsiveness. Per EMS when they arrived his oxygen saturation was in the low 80s. Patient is lethargic upon arrival to the emergency room unable to get any history from the patient. Patient diaphoretic. Related Data Home Medications Medication Instructions Recorded Confirmed Eliquis 5 mg PO BID 09/23/19 05/14/21 alprazolam 1 mg PO BID 09/23/19 05/01/21 carbidopa-levodopa 1 tablet PO TID 09/23/19 05/01/21 divalproex 250 mg PO BID 09/23/19 05/01/21 escitalopram oxalate 20 mg PO DAILY 09/23/19 05/01/21 gabapentin 300 mg PO TID 09/23/19 05/01/21 levetiracetam 750 mg PO BID 09/23/19 05/14/21 lovastatin 20 mg PO QPM 09/23/19 05/01/21 pentoxifylline 400 mg PO BID 09/23/19 05/14/21 topiramate 25 mg PO QPM 09/23/19 05/01/21 oxycodone-acetaminophen 1 tablet PO TID 08/27/20 05/01/21 oxycodone myristate [Xtampza ER] 13.5 mg PO BID 05/01/21 05/01/21 Allergies Allergy/AdvReac Type Severity Reaction Status Date / Time No Known Allergies Allergy Verified 07/05/21 14:37 Review of Systems Review of Systems: All systems reviewed & are unremarkable except as noted in HPI and below ROS unobtainable: Yes unobtainable due to mental status PMFSH Past Medical History Medical History Arthritis Chronic pain syndrome Chronic seasonal allergic rhinitis Current use of senior living anticoagulation Deep vein thrombosis of right lower limb (~04/2019) Extensive, occlusive DVT from the right common femoral vein through the peroneal and posterior tibial veins. Attempted angioplasty was unsuccessful and he was transferred to [place] for further and intervention. Now on long-term anticoagulation with Eliquis. Dementia Depression with anxiety Impetigo (~09/2019) Iron deficiency anemia Left thyroid nodule Noted on CT in April 2019. [facility] prescription opiate use Myocardial infarction Previously documented history of stent x1 however the patient is adamant that he has no history of coronary disease. Obesity (BMI 30.0-34.9) Parkinson disease Peripheral vascular disease Positive colorectal cancer screening using Cologuard test Seizures Traumatic brain injury Wrist fracture Surgical History Surgical History History of mastoidectomy With resultant mild, chronic hearing loss. History of tonsillectomy Family History Family History Mother Cervical cancer Skin cancer Social History Social History Social History: The patient lives in his own home in [place] but he has been staying with his mother recently after the of his father. He ambulates with a walker and has a friend come to the house daily to help with chores, etc. He smoked just about a pack of cigarettes per day since he was a teenager and now smokes maybe a few cigarettes a day. No alcohol or illicit substance use. He designates his friend, Maryse Garcia, as his surrogate decision maker and he wishes to be a full code. Smoking packs per day: 1 Smoking cigarettes per day: 20.0 Years smoked: 30 Smoking pack-years: 30.00 Smoking status: Heavy tobacco smoker Tobacco type: cigarettes Second hand tobacco smoke exposure: Yes Alcohol intake: never Substance use: never Substance use type: does not use Gender identity (if verbalized by the patient): Male Spiritual care concerns: No Agree to blood products: Yes Exam Const: General: diaphoretic and ill appearing Limitations: altered mental status HENMT: Head: normal to inspection Face
[2021-07-05 15:32] LABS: Basophils Absolute Auto 0.1 K/mm3 (0.0-0.1); Basophils Percent Auto 0.4 % (0.2-1.2); Eosinophils Percent Auto 0.1 % (0-4.4); Hemoglobin 12.6 g/dL (14.0-18.0); Immature Granulocyte Absolute 0.36 K/mm3 (0.00-0.031); Immature Granulocyte Percent A 1.9 % (0-0.5); Lymphocytes Absolute Auto 1.45 K/mm3 (0.9-3.2); Lymphocytes Percent Auto 7.7 % (18.3-44.2); Mean Corpuscular HGB Conc 29.3 g/dl (32-36); Mean Corpuscular Hemoglobin 29.8 pg (26-34); Mean Corpuscular Volume 101.7 fl (80-100); Mean Platelet Volume 8.9 fl (7.4-10.4); Monocytes Absolute Auto 1.7 K/mm3 (0.1-0.6); Monocytes Percent Auto 8.7 % (2.6-8.5); Neutrophils Absolute Auto 15.3 K/mm3 (1.3-6.7); Neutrophils Percent Auto 81.2 % (45.5-73.1); Platelet Count Result 313 k/mm3 (150-375); Red Blood Count 4.23 M/mm3 (4.6-6.20); White Blood Count 18.9 K/mm3 (4.5-10.0)
[2021-07-05] MEDS: IPRATROPIUM BR 0.02% INH SOLN 0.5 MG/2.5 ML VIAL INHALATION (15:36)
[2021-07-05] MEDS: ALBUTEROL SULFATE NEB 2.5 MG/0.5 ML INH 5 MG INHALATION (15:36)
[2021-07-05 15:42] LABS: INR 2.2; Prothrombin Time 23.6 Seconds (11.1-14.7)
[2021-07-05 15:43] LABS: Partial Thromboplastin Time 42.1 SECONDS (22.3-36.8)
[2021-07-05 15:44] LABS: Alanine Aminotransferase 6 U/L (4-50); Albumin Level 3.5 g/dL (3.5-5.1); Alkaline Phosphatase 142 U/L (38-126); Aspartate Amino Transferase 18 U/L (17-59); Bilirubin,Total 2.1 mg/dL (0.2-1.3); Blood Urea Nitrogen 12 mg/dL (9-20); Calcium 9.3 mg/dL (8.4-10.2); Carbon Dioxide > 40 mmol/L (22-30); Chloride 83 mmol/L (98-107); Estimated CRCL calculation 122 ml/min; Estimated Glomerular Filt Rate > 60; Glucose 160 mg/dL (65-110); Potassium 3.4 mmol/L (3.4-5.0); Sodium 131 mmol/L (137-145)
[2021-07-05] MEDS: LACTATED RINGERS 1,000 ML 999 ML IV CONT (15:48)
[2021-07-05] MEDS: methylPREDNISolone SOD SUCC 125 MG VIAL IV PUSH (15:49)
[2021-07-05] MEDS: DEXAMETHASONE SOD PHOS INJ 4 MG/ML VIAL 10 MG IV PUSH (15:52)
[2021-07-05 15:54] LABS: Troponin I < 0.012 ng/mL (0.000-0.034)
[2021-07-05 15:57] LABS: Hypochromasia 1+ (NORMAL); Platelet Estimate Adequate (Adequate)
--- NOTE | 2021-07-05 15:57 | PC.NURSE ---
Upon arrival pt was on room air and was at 65 % pt was put on 15 L non rebreather and went to 100%. Nasal breather was inserted 26 Setswana.
[2021-07-05 15:58] LABS: Anisocytosis 2+ (NORMAL)
[2021-07-05 16:14] LABS: Alveolar/Arterial O2 Gradient 80.4 mmHg; Base Excess ABG 13.5 mEq/l (+/-2.0); Carboxyhemoglobin 2.1 % THb (0-2.0); Fractional Inspired Oxygen 35 %; HCO3 ABG 43.1 mEq/l (22.0-26.0); Methemoglobin ABG 0.3 %THb (0-1.5); Oxygen Content ABG 16.4 %vol (16.0-22.0); Oxygen Saturation ABG 92.6 % (95.0-100.0); PO2 ABG 72.2 mmHg (80.0-100.0); PO2 FiO2 Ratio Arterial Blood 2.06 %; Reduced Hemoglobin 7.6 %THb (0-5.0); Total Hemoglobin 12.9 g/dL (12.0-18.0); pH ABG 7.331 (7.350-7.450)
[2021-07-05 16:22] LABS: Device NON-INVASIVE VENT; Modified Allen's Test Unable to perform; PCO2 ABG 83.4 mmHg (35.0-45.0); Site Drawn RIGHT RADIAL
[2021-07-05 16:23] LABS: Non-Invasive Expiratory Pressure 5 CMH2O; Non-Invasive Inspiratory Pressure 12 CMH2O; Non-Invasive Vent Rate 12 /MIN
[2021-07-05 17:12] LABS: Alveolar/Arterial O2 Gradient 84.5 mmHg; Base Excess ABG 12.1 mEq/l (+/-2.0); Fractional Inspired Oxygen 35 %; HCO3 ABG 41.1 mEq/l (22.0-26.0); Methemoglobin ABG 0.3 %THb (0-1.5); Oxygen Content ABG 16.3 %vol (16.0-22.0); Oxygen Saturation ABG 93.6 % (95.0-100.0); PO2 FiO2 Ratio Arterial Blood 2.14 %; Reduced Hemoglobin 6.7 %THb (0-5.0); Total Hemoglobin 12.7 g/dL (12.0-18.0); pH ABG 7.342 (7.350-7.450)
[2021-07-05 17:13] LABS: Device NON-INVASIVE VENT; Non-Invasive Expiratory Pressure 5 CMH2O; Non-Invasive Inspiratory Pressure 15 CMH2O; Non-Invasive Vent Rate 20 /MIN; PCO2 ABG 77.5 mmHg (35.0-45.0); Site Drawn RIGHT BRACHIAL
[2021-07-05 20:12] LABS: Add Urine Microscopic? YES; Appearance Urine Clear (Clear); Bilirubin Urine Negative (Negative); Blood Urine Negative (Negative); Color Urine Amber (Yellow); Glucose Urine UA Negative (Negative); Ketones Urine Negative (Negative); Leukocyte Esterase Ur Negative LEU/UL (Negative); Mucus Urine Rare /lpf; Nitrate Urine Negative (Negative); Protein Urine Negative (Negative); RBC Urine 0-2 /hpf (0-2); Specific Grav Ur 1.013 (1.001-1.035); Squamous Epithelial Cell Urine Occasional /hpf (Few); WBC Urine 0-3 /hpf
--- NOTE | 2021-07-05 21:00 | PM.IMHP ---
H&P: HPI History of Present Illness Date/Time: 07/05/21 21:00 this is a 56-year-old male patient who has a past medical history of traumatic brain injury resulting in premature Parkinson's and dementia. The patient's initial O2 saturation was reported by EMS in the low 80s. The patient was lethargic upon arrival to the emergency room and ER was unable to obtain any medical history. The patient was placed on a BiPAP. Patient's initial ABG pH was 7.326 and the last 1 was 7.342. ABG CO2 was 81.6 and has come down to 77.5. Bicarb 41.7 and is now 41.1. First troponin was negative. His white count was noted to be 18.9. H&H 12.6 and 43.0 which is his baseline. Blood sugar 160. Lactic 2.0. COVID swab is pending. The patient was started on Zosyn, Decadron, lactated Ringer's and neb treatments in the emergency room. Head CT was read as no acute intracranial findings. Chest x-ray was read as small right pleural effusion with associated atelectasis and/or pneumonia. 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 Attempted angioplasty was unsuccessful and he was transferred to [place] for further and intervention. Now on long-term anticoagulation with Eliquis. Dementia Depression with anxiety Impetigo (~09/2019) Iron deficiency anemia Left thyroid nodule Noted on CT in April 2019. 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 Obesity (BMI 30.0-34.9) Parkinson disease Peripheral vascular disease Positive colorectal cancer screening using Cologuard test Seizures Traumatic brain injury Wrist fracture Surgical History Surgical History (Updated 07/05/21 @ 21:08 by Lee Ann Sales NP) History of coronary artery stent placement History of mastoidectomy With resultant mild, chronic hearing loss. History of tonsillectomy Family History Family History Mother Cervical cancer Skin cancer Social History Social History Social History: The patient lives in his own home in [place] but he has been staying with his mother recently after the of his father. He ambulates with a walker and has a friend come to the house daily to help with chores, etc. He smoked just about a pack of cigarettes per day since he was a teenager and now smokes maybe a few cigarettes a day. No alcohol or illicit substance use. He designates his friend, Maryse Garcia, as his surrogate decision maker and he wishes to be a full code. Smoking packs per day: 1 Smoking cigarettes per day: 20.0 Years smoked: 30 Smoking pack-years: 30.00 Smoking status: Heavy tobacco smoker Tobacco type: cigarettes Second hand tobacco smoke exposure: Yes Alcohol intake: never Substance use: never Substance use type: does not use Gender identity (if verbalized by the patient): Male Spiritual care concerns: No Agree to blood products: Yes Meds Home Medications and Allergies Home Medications Medication Instructions Recorded Confirmed Type Eliquis 5 mg PO BID 09/23/19 05/14/21 History alprazolam 1 mg PO BID 09/23/19 05/01/21 History carbidopa-levodopa 1 tablet PO TID 09/23/19 05/01/21 History divalproex 250 mg PO BID 09/23/19 05/01/21 Hi
[2021-07-05] MEDS: LACTATED RINGERS 1,000 ML 125 ML IV CONT (22:13)
[2021-07-05] MEDS: levETIRAcetam IV 750 MG in DEXTROSE 5% 100 ML 430 MG IVPB (22:14)
[2021-07-05 22:19] LABS: Troponin I < 0.012 ng/mL (0.000-0.034)
--- NOTE | 2021-07-05 22:41 | PC.NURSE ---
This patient, Giuseppe Santana, was admitted to IMU Room 202-01. Patient/family oriented to hospital policies and general routines including ID bracelet, bed and alarms, visiting hours, pain management, procedures, bathroom and other care routines, personal items, smoking policy, room service/diet, and visiting hours. Information on how to activate the Rapid Response Team has been discussed. Patient/Family are encouraged to report perceived risks to care and to ask questions if they do not understand what they are told or what they should do.
[2021-07-05] MEDS: ENOXAPARIN 120 MG/0.8 ML SYRINGE 114 MG SUB-Q (23:19)
[2021-07-06] VITALS (24 sets, daily range): BP systolic 94–139; BP diastolic 59–79; PULSE 59–76; RESP 20–22; TEMP 36.2–36.6; O2SAT 95–99
[2021-07-06] MEDS: ALBUTEROL SULFATE NEB 2.5 MG/0.5 ML INH INHALATION ×4 (02:10→21:41)
[2021-07-06] MEDS: IPRATROPIUM BR 0.02% INH SOLN 0.5 MG/2.5 ML VIAL INHALATION ×4 (02:10→21:42)
[2021-07-06 05:34] LABS: Amphetamine Screen Urine Negative (Negative); Barbiturate Screen Urine Negative (Negative); Benzodiazepines Screen Urine Positive (Negative); Cannabinoid Screen Urine Negative (Negative); Cocaine Screen Urine Negative (Negative); Methadone Screen Urine Negative (Negative); Opiate Screen Urine Positive (Negative); Phencyclidine Screen Urine Negative (Negative)
[2021-07-06 05:44] LABS: Basophils Percent Auto 0.1 % (0.2-1.2); Hematocrit 38.8 % (42.0-52.0); Hemoglobin 11.6 g/dL (14.0-18.0); Immature Granulocyte Absolute 0.15 K/mm3 (0.00-0.031); Immature Granulocyte Percent A 1.4 % (0-0.5); Lymphocytes Absolute Auto 0.55 K/mm3 (0.9-3.2); Mean Corpuscular HGB Conc 29.9 g/dl (32-36); Mean Corpuscular Volume 100.3 fl (80-100); Mean Platelet Volume 8.8 fl (7.4-10.4); Monocytes Absolute Auto 0.4 K/mm3 (0.1-0.6); Monocytes Percent Auto 3.4 % (2.6-8.5); Neutrophils Absolute Auto 9.9 K/mm3 (1.3-6.7); Neutrophils Percent Auto 90.1 % (45.5-73.1); Platelet Count Result 227 k/mm3 (150-375); Red Blood Count 3.87 M/mm3 (4.6-6.20); Red Cell Distribution Width 16.9 % (11.5-14.5)
[2021-07-06 05:54] LABS: Lactic Acid Reflex 1.5 mmol/L (0.7-2.1)
[2021-07-06 06:25] LABS: Alanine Aminotransferase 6 U/L (4-50); Alkaline Phosphatase 112 U/L (38-126); Aspartate Amino Transferase 17 U/L (17-59); Bilirubin,Total 1.3 mg/dL (0.2-1.3); Blood Urea Nitrogen 11 mg/dL (9-20); Calcium 9.2 mg/dL (8.4-10.2); Carbon Dioxide > 40 mmol/L (22-30); Chloride 86 mmol/L (98-107); Estimated CRCL calculation 125 ml/min; Estimated Glomerular Filt Rate > 60; Glucose 134 mg/dL (65-110); Lipase 107 U/L (23-300); Phosphorus 2.9 mg/dL (2.5-4.5); Potassium 3.9 mmol/L (3.4-5.0); Sodium 131 mmol/L (137-145)
[2021-07-06] MEDS: LACTATED RINGERS 1,000 ML 125 ML IV CONT ×2 (06:41→16:00)
[2021-07-06 06:43] LABS: Thyroid Stimulating Hormone Reflex 0.378 uIU/mL (0.465-4.68)
[2021-07-06 06:48] LABS: Lactate Dehydrogenase < 200 U/L (313-618)
--- NOTE | 2021-07-06 07:24 | PM.IMPN ---
Progress Note: A&P Assessment and Plan (1) Acute respiratory failure: Qualifiers: Respiratory failure complication: hypoxia and hypercapnia Qualified Code(s): J96.01 - Acute respiratory failure with hypoxia; J96.02 - Acute respiratory failure with hypercapnia Code(s): J96.00 - Acute respiratory failure, unspecified whether with hypoxia or hypercapnia Status: Acute Assessment and Plan: Patient's chest x-ray was read as pneumonia. He has hypoxia and hypercapnia. The patient is currently on a BiPAP and making improvement. Patient may have had a seizure. May be related to pneumonia. Could possibly be COVID. (2) Community acquired pneumonia: Code(s): J18.9 - Pneumonia, unspecified organism Status: Acute Assessment and Plan: The patient started on nebulizer treatments. Community-acquired antibiotic stewardship with azithromycin Rocephin. Blood cultures and sputum cultures are pending. (3) Unresponsive episode: Code(s): R41.89 - Other symptoms and signs involving cognitive functions and awareness Status: Acute Assessment and Plan: Could be related to infectious process. Patient has hypoxia and hypercapnia. Could possibly be COVID. (4) Dementia: Code(s): F03.90 - Unspecified dementia without behavioral disturbance Status: Acute Assessment and Plan: Continue with patient's home medications when he is more awake. P.r.n. Ativan. (5) Seizures: Code(s): R56.9 - Unspecified convulsions Status: Acute Assessment and Plan: IV Keppra and p.r.n. Ativan. (6) Parkinson disease: Code(s): G20 - Parkinson's disease Status: Acute Assessment and Plan: Continue with home medication when the patient is more awake. (7) History of DVT (deep vein thrombosis): Code(s): Z86.718 - Personal history of other venous thrombosis and embolism Status: Acute Assessment and Plan: The patient is typically on Eliquis however the patient is still lethargic and on a BiPAP. I started him on subcu Lovenox twice a day therapeutic doses. (8) Suspected COVID-19 virus infection: Code(s): Z20.822 - Contact with and (suspected) exposure to COVID-19 Status: Acute Assessment and Plan: Patient started on Decadron. The patient is on droplet and contact isolation. Unsure of vaccination status. Additional Plan 07/06/2021 Will continue current plan of care and treatment. Monitor labs and chest x-ray. Patient is full code Subjective Date/time seen: 07/06/21 07:24 Patient was seen during the morning rounds today. Mild shortness of breath no chest pain. No abdominal pain, no nausea, no vomiting. Mood stable. Review of Systems Review of Systems: ROS unobtainable: Yes unobtainable due to mental status and other (Patient currently on a BiPAP machine) Neurologic: Reports confusion Psychiatric: Psychiatric: Reports confusion Exam Const: General: cooperative, comfortable, no acute distress, well developed, confusion, ill appearing, lethargic and tired appearing Nutritional Appearance: average body habitus and well nourished Orientation/consciousness: oriented to person, confusion and lethargic Limitations: altered mental status HENMT: Head: normal to inspection, No palpable skull fracture present, normocephalic and atraumatic General nose exam: Normal external nose present, Normal nares present and No nasal polyps present Mouth: Yes Normal oral and palatal mucosa present Throat: posterior oropharynx normal Eyes: General: appearance normal, both eyes and all related structures Alignment and Position: alignment normal Periorbital: periorbital findings normal Eyelids: eyelids normal Conjunctivae: conjunctivae normal Sclera: sclerae normal Cornea: corneas normal Pupils: Equal, round and reactive pupils present EOM: EOMs intact bilaterally Neck: Neck: normal visual inspection Thyroid: thyroid normal Carot
[2021-07-06] MEDS: ENOXAPARIN 120 MG/0.8 ML SYRINGE 114 MG SUB-Q ×2 (08:45→20:09)
[2021-07-06] MEDS: FUROSEMIDE INJ 40 MG/4 ML VIAL IV PUSH (08:48)
[2021-07-06 08:50] LABS: Glucose Point of Care 125 mg/dl (65-105)
[2021-07-06] MEDS: PANTOPRAZOLE SODIUM IV 40 MG VIAL IV PUSH ×2 (08:55→20:09)
[2021-07-06] MEDS: levETIRAcetam IV 750 MG in DEXTROSE 5% 100 ML 430 MG IVPB ×2 (08:57→20:09)
[2021-07-06 12:47] LABS: Glucose Point of Care 151 mg/dl (65-105)
[2021-07-06 18:03] LABS: SARS-CoV-2 RNA PCR Negative
[2021-07-06 18:23] LABS: Glucose Point of Care 134 mg/dl (65-105)
[2021-07-06 20:24] LABS: Glucose Point of Care 133 mg/dl (65-105)
[2021-07-07] VITALS (22 sets, daily range): BP systolic 105–135; BP diastolic 61–87; PULSE 55–92; RESP 12–24; TEMP 36.4–37.1; O2SAT 91–99
[2021-07-07] MEDS: LACTATED RINGERS 1,000 ML 125 ML IV CONT ×2 (01:34→08:16)
[2021-07-07] MEDS: ALBUTEROL SULFATE NEB 2.5 MG/0.5 ML INH INHALATION ×4 (02:23→19:49)
[2021-07-07] MEDS: IPRATROPIUM BR 0.02% INH SOLN 0.5 MG/2.5 ML VIAL INHALATION ×4 (02:23→19:49)
[2021-07-07] MEDS: levETIRAcetam IV 750 MG in DEXTROSE 5% 100 ML 430 MG IVPB ×2 (08:15→20:07)
[2021-07-07] MEDS: FUROSEMIDE INJ 40 MG/4 ML VIAL IV PUSH (08:17)
[2021-07-07] MEDS: PANTOPRAZOLE SODIUM IV 40 MG VIAL IV PUSH ×2 (08:17→20:07)
[2021-07-07] MEDS: ENOXAPARIN 120 MG/0.8 ML SYRINGE 114 MG SUB-Q (08:17)
[2021-07-07 08:55] LABS: Glucose Point of Care 100 mg/dl (65-105)
[2021-07-07 09:24] LABS: Free T4 Free Thyroxine Reflex 1.38 ng/dL (0.78-2.19)
[2021-07-07 10:28] LABS: Total Triiodothyronine (T3) 0.84 NG/ML (0.97-1.69)
--- NOTE | 2021-07-07 11:07 | PM.IMPN ---
Progress Note: A&P Assessment and Plan (1) Acute respiratory failure: Qualifiers: Respiratory failure complication: hypoxia and hypercapnia Qualified Code(s): J96.01 - Acute respiratory failure with hypoxia; J96.02 - Acute respiratory failure with hypercapnia Code(s): J96.00 - Acute respiratory failure, unspecified whether with hypoxia or hypercapnia Status: Acute Assessment and Plan: Patient's chest x-ray was read as pneumonia. He has hypoxia and hypercapnia. The patient is currently on a BiPAP and making improvement. Patient may have had a seizure. May be related to pneumonia. Could possibly be COVID. (2) Community acquired pneumonia: Code(s): J18.9 - Pneumonia, unspecified organism Status: Acute Assessment and Plan: The patient started on nebulizer treatments. Community-acquired antibiotic stewardship with azithromycin Rocephin. Blood cultures and sputum cultures are pending. (3) Unresponsive episode: Code(s): R41.89 - Other symptoms and signs involving cognitive functions and awareness Status: Acute Assessment and Plan: Could be related to infectious process. Patient has hypoxia and hypercapnia. Could possibly be COVID. (4) Dementia: Code(s): F03.90 - Unspecified dementia without behavioral disturbance Status: Acute Assessment and Plan: Continue with patient's home medications when he is more awake. P.r.n. Ativan. (5) Seizures: Code(s): R56.9 - Unspecified convulsions Status: Acute Assessment and Plan: IV Keppra and p.r.n. Ativan. (6) Parkinson disease: Code(s): G20 - Parkinson's disease Status: Acute Assessment and Plan: Continue with home medication when the patient is more awake. (7) History of DVT (deep vein thrombosis): Code(s): Z86.718 - Personal history of other venous thrombosis and embolism Status: Acute Assessment and Plan: The patient is typically on Eliquis however the patient is still lethargic and on a BiPAP. I started him on subcu Lovenox twice a day therapeutic doses. (8) Suspected COVID-19 virus infection: Code(s): Z20.822 - Contact with and (suspected) exposure to COVID-19 Status: Acute Assessment and Plan: Patient started on Decadron. The patient is on droplet and contact isolation. Unsure of vaccination status. Additional Plan 07/07/2021 Will continue current plan of care and treatment. Patient is still using BiPAP. Monitor labs and chest x-ray. Patient is full code Subjective Date/time seen: 07/07/21 11:07 Patient was seen during the morning rounds today. Patient was using BiPAP. Mild shortness of breath no chest pain. No abdominal pain, no nausea, no vomiting. Mood stable. Review of Systems Review of Systems: ROS unobtainable: Yes unobtainable due to mental status and other (Patient currently on a BiPAP machine) Neurologic: Reports confusion Psychiatric: Psychiatric: Reports confusion Exam Const: General: cooperative, comfortable, no acute distress, well developed, confusion, ill appearing, lethargic and tired appearing Nutritional Appearance: average body habitus and well nourished Orientation/consciousness: oriented to person, confusion and lethargic Limitations: altered mental status HENMT: Head: normal to inspection, No palpable skull fracture present, normocephalic and atraumatic General nose exam: Normal external nose present, Normal nares present and No nasal polyps present Mouth: Yes Normal oral and palatal mucosa present Throat: posterior oropharynx normal Eyes: General: appearance normal, both eyes and all related structures Alignment and Position: alignment normal Periorbital: periorbital findings normal Eyelids: eyelids normal Conjunctivae: conjunctivae normal Sclera: sclerae normal Cornea: corneas normal Pupils: Equal, round and reactive pupils present EOM: EOMs intact bilaterally Neck: Ne
[2021-07-07 12:31] LABS: Glucose Point of Care 131 mg/dl (65-105)
[2021-07-07 17:08] LABS: Glucose Point of Care 136 mg/dl (65-105)
[2021-07-07 20:09] LABS: Glucose Point of Care 186 mg/dl (65-105)
[2021-07-07] MEDS: LORazepam INJ (*CRX) 2 MG/ML VIAL 0.5 MG IV PUSH (20:31)
[2021-07-07] MEDS: oxyCODONE HCL (*CRX) 5 MG TAB IR PO (20:31)
[2021-07-07] MEDS: oxyCODONE/ACETAMINOPHEN (*CRX) 5-325 MG TABLET 1 TABLET PO (20:31)
[2021-07-08] VITALS (24 sets, daily range): BP systolic 104–125; BP diastolic 58–83; PULSE 64–87; RESP 16–24; TEMP 35.6–36.9; O2SAT 91–96; BMI 29.0
[2021-07-08] MEDS: IPRATROPIUM BR 0.02% INH SOLN 0.5 MG/2.5 ML VIAL INHALATION ×4 (01:38→20:45)
[2021-07-08] MEDS: ALBUTEROL SULFATE NEB 2.5 MG/0.5 ML INH INHALATION ×4 (01:38→20:45)
[2021-07-08 04:51] LABS: Hematocrit 38.1 % (42.0-52.0); Hemoglobin 11.8 g/dL (14.0-18.0); Mean Corpuscular Hemoglobin 29.4 pg (26-34); Mean Corpuscular Volume 94.8 fl (80-100); Mean Platelet Volume 8.4 fl (7.4-10.4); Platelet Count Result 256 k/mm3 (150-375); Red Blood Count 4.02 M/mm3 (4.6-6.20); Red Cell Distribution Width 17.5 % (11.5-14.5); White Blood Count 9.9 K/mm3 (4.5-10.0)
[2021-07-08 05:02] LABS: Blood Urea Nitrogen 19 mg/dL (9-20); Calcium 9.3 mg/dL (8.4-10.2); Carbon Dioxide > 40 mmol/L (22-30); Chloride 91 mmol/L (98-107); Estimated CRCL calculation 110 ml/min; Estimated Glomerular Filt Rate > 60; Glucose 118 mg/dL (65-110); Potassium 3.7 mmol/L (3.4-5.0); Sodium 133 mmol/L (137-145)
[2021-07-08 08:50] LABS: Glucose Point of Care 114 mg/dl (65-105)
[2021-07-08] MEDS: oxyCODONE HCL (*CRX) 5 MG TAB IR PO ×2 (09:07→22:15)
[2021-07-08] MEDS: ENOXAPARIN 40 MG/0.4 ML SYRINGE SUB-Q (09:08)
[2021-07-08] MEDS: PANTOPRAZOLE SODIUM IV 40 MG VIAL IV PUSH ×2 (09:09→20:01)
[2021-07-08] MEDS: levETIRAcetam IV 750 MG in DEXTROSE 5% 100 ML 430 MG IVPB (09:09)
[2021-07-08] MEDS: FUROSEMIDE INJ 40 MG/4 ML VIAL IV PUSH (09:09)
[2021-07-08 12:07] LABS: Glucose Point of Care 164 mg/dl (65-105)
[2021-07-08] MEDS: oxyCODONE/ACETAMINOPHEN (*CRX) 5-325 MG TABLET 1 TABLET PO (12:36)
[2021-07-08] MEDS: LORazepam INJ (*CRX) 2 MG/ML VIAL 0.5 MG IV PUSH ×2 (12:41→19:52)
--- NOTE | 2021-07-08 14:16 | P.PNIM_ITS ---
Progress Note: A&P Assessment and Plan (1) Acute respiratory failure: Qualifiers: Respiratory failure complication: hypoxia and hypercapnia Qualified Code(s): J96.01 - Acute respiratory failure with hypoxia; J96.02 - Acute respiratory failure with hypercapnia Code(s): J96.00 - Acute respiratory failure, unspecified whether with hypoxia or hypercapnia Status: Acute Assessment and Plan: Likely related to pneumonia. No episodes of hypoxia documented, however he was requiring BiPAP on presentation and has been noted that his O2 sats were in the low 80s by ED physician. * ABG at presentation demonstrated mild hypoxemia with hypercapnia. Hypercapnia appears chronic on review of prior labs in actually improved. * At this time, he has been weaned to room air and maintaining adequate oxygen saturations * Supportive care to include bronchodilators, expectorants, incentive spirometry (2) Community acquired pneumonia: Code(s): J18.9 - Pneumonia, unspecified organism Status: Acute Assessment and Plan: CXR shows perihilar paced is with bronchial wall thickening consistent with pneumonia * Continue ceftriaxone and azithromycin * Supplemental O2 as needed with goal saturation 92% or above * Continue supportive care as described above * Preliminary blood cultures negative to date * Sputum culture has been ordered, pending collection * COVID negative on 07/05/2021 (3) Unresponsive episode: Code(s): R41.89 - Other symptoms and signs involving cognitive functions and awareness Status: Acute Assessment and Plan: Poorly responsive on presentation * May have been due to hypoxia, noted that O2 sats were in the low 80s at presentation * May have had a seizure * Yesterday noted to still be drowsy with altered mental status though today he is A&O x4 * Monitor mental status closely * Diet has been advanced and will transition him back to his home p.o. medications as he is tolerating p.o. intake without difficulty (4) Seizures: Code(s): R56.9 - Unspecified convulsions Status: Acute Assessment and Plan: History of seizure disorder. May have had a seizure prior to presentation accounting for poor responsiveness * Started on IV Keppra as he was not tolerating p.o. intake * Transition back to home p.o. Keppra 750 mg b.i.d. * Resume Depakote 250 mg p.o. b.i.d. * Resume Topamax 25 mg q.p.m. (5) Dementia: Code(s): F03.90 - Unspecified dementia without behavioral disturbance Status: Acute Assessment and Plan: May be related to traumatic brain injury * A&O x4 on my exam today (6) Parkinson disease: Code(s): G20 - Parkinson's disease Status: Acute Assessment and Plan: No acute issues * Resume home carbidopa/levodopa (7) History of DVT (deep vein thrombosis): Code(s): Z86.718 - Personal history of other venous thrombosis and embolism Status: Acute Assessment and Plan: Maintained on Eliquis * Resume home Eliquis * Discontinue Lovenox Additional Plan Given patient's overall improvement, will downgrade to medical/surgical floor Subjective Date/time seen: 07/08/21 14:16 Interval history: Date of service: 07/08/2021 Giuseppe Santana is a 56-year-old male with a history of chronic back pain, DVT on chronic anticoagulation, traumatic brain injury, coronary artery disease, and seizure disorder who is seen in follow-up for pneumonia. He is doing fairly
--- NOTE | 2021-07-08 14:16 | PM.IMPN ---
Progress Note: A&P Assessment and Plan (1) Acute respiratory failure: Qualifiers: Respiratory failure complication: hypoxia and hypercapnia Qualified Code(s): J96.01 - Acute respiratory failure with hypoxia; J96.02 - Acute respiratory failure with hypercapnia Code(s): J96.00 - Acute respiratory failure, unspecified whether with hypoxia or hypercapnia Status: Acute Assessment and Plan: Likely related to pneumonia. No episodes of hypoxia documented, however he was requiring BiPAP on presentation and has been noted that his O2 sats were in the low 80s by ED physician. ABG at presentation demonstrated mild hypoxemia with hypercapnia. Hypercapnia appears chronic on review of prior labs in actually improved. At this time, he has been weaned to room air and maintaining adequate oxygen saturations Supportive care to include bronchodilators, expectorants, incentive spirometry (2) Community acquired pneumonia: Code(s): J18.9 - Pneumonia, unspecified organism Status: Acute Assessment and Plan: CXR shows perihilar paced is with bronchial wall thickening consistent with pneumonia Continue ceftriaxone and azithromycin Supplemental O2 as needed with goal saturation 92% or above Continue supportive care as described above Preliminary blood cultures negative to date Sputum culture has been ordered, pending collection COVID negative on 07/05/2021 (3) Unresponsive episode: Code(s): R41.89 - Other symptoms and signs involving cognitive functions and awareness Status: Acute Assessment and Plan: Poorly responsive on presentation May have been due to hypoxia, noted that O2 sats were in the low 80s at presentation May have had a seizure Yesterday noted to still be drowsy with altered mental status though today he is A&O x4 Monitor mental status closely Diet has been advanced and will transition him back to his home p.o. medications as he is tolerating p.o. intake without difficulty (4) Seizures: Code(s): R56.9 - Unspecified convulsions Status: Acute Assessment and Plan: History of seizure disorder. May have had a seizure prior to presentation accounting for poor responsiveness Started on IV Keppra as he was not tolerating p.o. intake Transition back to home p.o. Keppra 750 mg b.i.d. Resume Depakote 250 mg p.o. b.i.d. Resume Topamax 25 mg q.p.m. (5) Dementia: Code(s): F03.90 - Unspecified dementia without behavioral disturbance Status: Acute Assessment and Plan: May be related to traumatic brain injury A&O x4 on my exam today (6) Parkinson disease: Code(s): G20 - Parkinson's disease Status: Acute Assessment and Plan: No acute issues Resume home carbidopa/levodopa (7) History of DVT (deep vein thrombosis): Code(s): Z86.718 - Personal history of other venous thrombosis and embolism Status: Acute Assessment and Plan: Maintained on Eliquis Resume home Eliquis Discontinue Lovenox Additional Plan Given patient's overall improvement, will downgrade to medical/surgical floor Subjective Date/time seen: 07/08/21 14:16 Interval history: Date of service: 07/08/2021 Giuseppe Santana is a 56-year-old male with a history of chronic back pain, DVT on chronic anticoagulation, traumatic brain injury, coronary artery disease, and seizure disorder who is seen in follow-up for pneumonia. He is doing fairly well today. He does complain of chronic back pain that he thinks is worse with lying in bed. He was able to get up to the chair for part of the morning today and this did help his pain some. He has been eating fairly well and reports a decent appetite. Denies dysphagia. No nausea, vomiting, abdominal pain. Denies shortness breath, cough, or chest pain. No dizziness or lightheadedness. He denies any urinary symptoms. He has no additional concerns. Revi
[2021-07-08] MEDS: APIXABAN 5 MG TABLET PO (15:43)
[2021-07-08] MEDS: CARBIDOPA/LEVODOPA 25/250 MG TABLET 1 TABLET PO (15:44)
[2021-07-08] MEDS: DIVALPROEX SODIUM DR 250 MG TABEC PO (15:44)
[2021-07-08] MEDS: PENTOXIFYLLINE 400 MG TABCR PO (15:45)
[2021-07-08] MEDS: levETIRAcetam 250 MG TABLET 750 MG PO (15:45)
[2021-07-08 17:33] LABS: Glucose Point of Care 196 mg/dl (65-105)
[2021-07-08] MEDS: TOPIRAMATE 25 MG TABLET PO (20:00)
[2021-07-08] MEDS: guaiFENesin 12 HR 600 MG TABCR PO (20:00)
[2021-07-08] MEDS: oxyCODONE HCL (*CRX) 10 MG TAB SR 12HR PO (20:01)
[2021-07-08 20:29] LABS: Glucose Point of Care 248 mg/dl (65-105)
--- NOTE | 2021-07-08 22:09 | PC.NURSE ---
This patient, Giuseppe Santana, was transferred to [facility] on 07/08/21 at 2200. Personal belongings sent with patient. Report given to Smiley . Appropriate documentation sent with patient.
[2021-07-08 23:27] LABS: Glucose Point of Care 150 mg/dl (65-105)
[2021-07-09] VITALS (13 sets, daily range): BP systolic 98–120; BP diastolic 50–70; PULSE 64–73; RESP 17–18; TEMP 36.1; O2SAT 93–96
[2021-07-09] MEDS: oxyCODONE/ACETAMINOPHEN (*CRX) 5-325 MG TABLET 1 TABLET PO ×4 (01:38→17:33)
[2021-07-09] MEDS: LORazepam INJ (*CRX) 2 MG/ML VIAL 0.5 MG IV PUSH ×2 (01:52→10:07)
[2021-07-09] MEDS: ALBUTEROL SULFATE NEB 2.5 MG/0.5 ML INH INHALATION ×4 (02:11→20:08)
[2021-07-09] MEDS: IPRATROPIUM BR 0.02% INH SOLN 0.5 MG/2.5 ML VIAL INHALATION ×4 (02:11→20:08)
[2021-07-09 05:58] LABS: Hematocrit 38.7 % (42.0-52.0); Hemoglobin 12.1 g/dL (14.0-18.0); Mean Corpuscular HGB Conc 31.3 g/dl (32-36); Mean Corpuscular Hemoglobin 29.5 pg (26-34); Mean Corpuscular Volume 94.4 fl (80-100); Mean Platelet Volume 8.5 fl (7.4-10.4); Platelet Count Result 228 k/mm3 (150-375); Red Cell Distribution Width 17.1 % (11.5-14.5); White Blood Count 10.8 K/mm3 (4.5-10.0)
[2021-07-09 06:18] LABS: Anion Gap 5 mmol/L (8-16); Blood Urea Nitrogen 18 mg/dL (9-20); Carbon Dioxide 34 mmol/L (22-30); Chloride 92 mmol/L (98-107); Estimated CRCL calculation 125 ml/min; Estimated Glomerular Filt Rate > 60; Glucose 132 mg/dL (65-110); Potassium 3.8 mmol/L (3.4-5.0); Sodium 131 mmol/L (137-145)
[2021-07-09 06:53] LABS: Glucose Point of Care 121 mg/dl (65-105)
[2021-07-09] MEDS: oxyCODONE HCL (*CRX) 5 MG TAB IR PO ×3 (08:43→17:33)
[2021-07-09] MEDS: SPIRONOLACTONE 50 MG TABLET PO (08:50)
[2021-07-09] MEDS: DIVALPROEX SODIUM DR 250 MG TABEC PO ×2 (08:50→17:34)
[2021-07-09] MEDS: levETIRAcetam 250 MG TABLET 750 MG PO ×2 (08:50→17:34)
[2021-07-09] MEDS: CARBIDOPA/LEVODOPA 25/250 MG TABLET 1 TABLET PO ×3 (08:50→17:34)
[2021-07-09] MEDS: guaiFENesin 12 HR 600 MG TABCR PO ×2 (08:50→21:02)
[2021-07-09] MEDS: PENTOXIFYLLINE 400 MG TABCR PO ×2 (08:50→17:34)
[2021-07-09] MEDS: FUROSEMIDE 40 MG TABLET PO (08:51)
[2021-07-09] MEDS: PANTOPRAZOLE SODIUM IV 40 MG VIAL IV PUSH ×2 (08:51→21:02)
[2021-07-09] MEDS: APIXABAN 5 MG TABLET PO ×2 (08:51→17:33)
[2021-07-09] MEDS: oxyCODONE HCL (*CRX) 10 MG TAB SR 12HR PO ×2 (08:56→21:02)
[2021-07-09 12:03] LABS: Glucose Point of Care 112 mg/dl (65-105)
--- NOTE | 2021-07-09 14:31 | PM.IMPN ---
Progress Note: A&P Assessment and Plan (1) Acute respiratory failure: Qualifiers: Respiratory failure complication: hypoxia and hypercapnia Qualified Code(s): J96.01 - Acute respiratory failure with hypoxia; J96.02 - Acute respiratory failure with hypercapnia Code(s): J96.00 - Acute respiratory failure, unspecified whether with hypoxia or hypercapnia Status: Acute Assessment and Plan: Likely related to pneumonia. No episodes of hypoxia documented, however he was requiring BiPAP on presentation and it was noted that his O2 sats were in the low 80s by ED physician. ABG at presentation demonstrated mild hypoxemia with hypercapnia. Hypercapnia appears chronic on review of prior labs and was actually improved. He has been weaned to room air and maintaining adequate oxygen saturations Supportive care to include bronchodilators, expectorants, incentive spirometry (2) Community acquired pneumonia: Code(s): J18.9 - Pneumonia, unspecified organism Status: Acute Assessment and Plan: CXR shows perihilar opacities with bronchial wall thickening consistent with pneumonia Continue ceftriaxone. Last dose of IV azithromycin this evening to complete 5 days of therapy. Supplemental O2 as needed with goal saturation 92% or above Continue supportive care as described above Preliminary blood cultures negative to date Sputum culture ordered but he denies productive cough COVID negative on 07/05/2021 (3) Unresponsive episode: Code(s): R41.89 - Other symptoms and signs involving cognitive functions and awareness Status: Acute Assessment and Plan: Poorly responsive on presentation. Likely postictal as overall history sounds to be consistent with seizure Resolved. He has been A&Ox4 on my encounters Monitor mental status closely Diet has been advanced and he has been restarted on his PO medications as he is tolerating p.o. intake without difficulty (4) Seizures: Code(s): R56.9 - Unspecified convulsions Status: Acute Assessment and Plan: History of seizure disorder. Sounds as though he had a seizure prior to presentation Continue p.o. Keppra 750 mg b.i.d. Continue Depakote 250 mg p.o. b.i.d. and Topamax 25 mg q.p.m. (5) Dementia: Code(s): F03.90 - Unspecified dementia without behavioral disturbance Status: Acute Assessment and Plan: May be related to traumatic brain injury or Parkinsons disease A&O x4 on my exam today (6) Parkinson disease: Code(s): G20 - Parkinson's disease Status: Acute Assessment and Plan: No acute issues Resume home carbidopa/levodopa (7) History of DVT (deep vein thrombosis): Code(s): Z86.718 - Personal history of other venous thrombosis and embolism Status: Acute Assessment and Plan: Maintained on Eliquis Continue home Eliquis Additional Plan Hopeful discharge home tomorrow if continued improvement Subjective Date/time seen: 07/09/21 14:31 Interval history: Date of service: 07/09/2021 Giuseppe Santana is a 56-year-old male with a history of chronic back pain, DVT on chronic anticoagulation, traumatic brain injury, coronary artery disease, and seizure disorder who is seen in follow-up for pneumonia. He reports he is feeling better today. He is continues to complain of chronic pain she rates 6/10 at this time. He denies shortness of breath, cough, sputum production. Denies wheezing. No chest pain or palpitations. His appetite has been. He denies abdominal pain, nausea, vomiting, fever, chills. He complains of soreness on his elbows from when he fell and was thought to have a seizure. He has no additional concerns at this time. Review of Systems Review of Systems: All systems reviewed & are unremarkable except as noted in HPI and below Exam Narrative: Mr. Santana is a chronically ill-appearing 56-year-old male who is
--- NOTE | 2021-07-09 14:35 | PC.NURSE ---
On 07/09/21, the student, Vandana Rogel, provided care and completed [employer] documentation on this patient. I have reviewed the student's documentation and agree with the findings.
[2021-07-09 16:39] LABS: Glucose Point of Care 103 mg/dl (65-105)
[2021-07-09] MEDS: ALPRAZolam (*CRX) 0.5 MG TABLET 1 MG PO (17:32)
[2021-07-09] MEDS: TOPIRAMATE 25 MG TABLET PO (17:35)
[2021-07-09 21:11] LABS: Glucose Point of Care 125 mg/dl (65-105)
[2021-07-10 01:59] VITALS: PULSE 70; RESP 18
[2021-07-10] MEDS: ALBUTEROL SULFATE NEB 2.5 MG/0.5 ML INH INHALATION ×2 (01:59→08:06)
[2021-07-10] MEDS: IPRATROPIUM BR 0.02% INH SOLN 0.5 MG/2.5 ML VIAL INHALATION ×2 (01:59→08:06)
[2021-07-10 02:06] VITALS: PULSE 75; RESP 18
[2021-07-10 03:44] VITALS: BP 97/58; PULSE 84; RESP 17; TEMP 37.2; O2SAT 93
[2021-07-10 05:52] LABS: Hematocrit 42.3 % (42.0-52.0); Hemoglobin 12.7 g/dL (14.0-18.0); Mean Corpuscular Hemoglobin 29.4 pg (26-34); Mean Corpuscular Volume 97.9 fl (80-100); Mean Platelet Volume 8.8 fl (7.4-10.4); Platelet Count Result 203 k/mm3 (150-375); Red Blood Count 4.32 M/mm3 (4.6-6.20); Red Cell Distribution Width 17.1 % (11.5-14.5); White Blood Count 11.2 K/mm3 (4.5-10.0)
[2021-07-10 05:56] LABS: Anion Gap 5 mmol/L (8-16); Blood Urea Nitrogen 17 mg/dL (9-20); Calcium 8.6 mg/dL (8.4-10.2); Carbon Dioxide 35 mmol/L (22-30); Chloride 92 mmol/L (98-107); Estimated CRCL calculation 110 ml/min; Estimated Glomerular Filt Rate > 60; Glucose 110 mg/dL (65-110); Potassium 3.9 mmol/L (3.4-5.0); Sodium 132 mmol/L (137-145)
[2021-07-10 06:47] LABS: Glucose Point of Care 105 mg/dl (65-105)
[2021-07-10 08:07] VITALS: PULSE 77; RESP 18
[2021-07-10 08:16] VITALS: PULSE 73; RESP 18
[2021-07-10] MEDS: CARBIDOPA/LEVODOPA 25/250 MG TABLET 1 TABLET PO ×2 (08:37→12:06)
[2021-07-10] MEDS: ALPRAZolam (*CRX) 0.5 MG TABLET 1 MG PO (08:37)
[2021-07-10] MEDS: APIXABAN 5 MG TABLET PO (08:38)
[2021-07-10] MEDS: levETIRAcetam 250 MG TABLET 750 MG PO (08:39)
[2021-07-10] MEDS: guaiFENesin 12 HR 600 MG TABCR PO (08:39)
[2021-07-10] MEDS: DIVALPROEX SODIUM DR 250 MG TABEC PO (08:39)
[2021-07-10] MEDS: FUROSEMIDE 40 MG TABLET PO (08:39)
[2021-07-10] MEDS: SPIRONOLACTONE 50 MG TABLET PO (08:39)
[2021-07-10] MEDS: PENTOXIFYLLINE 400 MG TABCR PO (08:39)
[2021-07-10] MEDS: oxyCODONE HCL (*CRX) 10 MG TAB SR 12HR PO (08:39)
[2021-07-10 08:42] VITALS: BP 110/60; PULSE 91; O2SAT 91
[2021-07-10] MEDS: PANTOPRAZOLE 40 MG TABLET PO (09:29)
[2021-07-10] MEDS: SACCHAROMYCES BOULARDII 250 MG CAPSULE PO (10:26)
[2021-07-10] MEDS: AMOXICILLIN/CLAVULANATE K 875-125 MG TAB 1 TABLET PO (10:26)
[2021-07-10 10:41] LABS: Basophils Percent Auto 0.4 % (0.2-1.2); Eosinophils Absolute Auto 0.1 K/mm3 (0-0.3); Eosinophils Percent Auto 0.9 % (0-4.4); Immature Granulocyte Absolute 0.23 K/mm3 (0.00-0.031); Lymphocytes Absolute Auto 1.27 K/mm3 (0.9-3.2); Lymphocytes Percent Auto 11.2 % (18.3-44.2); Monocytes Absolute Auto 0.9 K/mm3 (0.1-0.6); Monocytes Percent Auto 7.9 % (2.6-8.5); Neutrophils Absolute Auto 8.8 K/mm3 (1.3-6.7); Neutrophils Percent Auto 77.6 % (45.5-73.1)
--- NOTE | 2021-07-10 11:00 | PCNFU ---
Nutrition Follow-Up Complete: Involuntary weight loss related to unknown etiology, possibly Parkinson's disease +/- dementia, as evidenced by documented 9.8% weight loss x 2 months. Goal: Patient to consume 50% of meals/supplements or greater and maintain weight. Patient has met current goal. No new goal. Pt current nutrition is Heart Healthy with Ensure compact BID. Last recorded weight is 104.3 kg down from 108 kg on admit. Bowel Motility:+BM reported 07/09 Labs Reviewed:Na 132,Hgb 12.7 Meds Noted:Florastor, Keppra, Percocet,Protonix, Lasix, Sinemet, Eliquis, Mucinex. Additional Notes: Nutrition follow up. Patient states to tolerating heart healthy diet, consuming 75-100% of meals. Diet supplements continue with Ensure compact BID providing an additional 220 kcals and 9 gms protein. Agree with diet orders. No further nutritional interventions. Monitoring: Follow up in 7 days.
[2021-07-10 11:50] LABS: Glucose Point of Care 102 mg/dl (65-105)
--- NOTE | 2021-07-10 12:59 | PM.DS ---
DS: Admitting Diagnosis Discharge Date 07/10/2021 Admitting Diagnosis Unresponsive episode DS: Discharge Diagnosis Discharge Diagnosis (1) Acute respiratory failure: Qualifiers: Respiratory failure complication: hypoxia and hypercapnia Qualified Code(s): J96.01 - Acute respiratory failure with hypoxia; J96.02 - Acute respiratory failure with hypercapnia Code(s): J96.00 - Acute respiratory failure, unspecified whether with hypoxia or hypercapnia Status: Acute Assessment and Plan: Likely related to pneumonia. No episodes of hypoxia documented, however he was requiring BiPAP on presentation and it was noted that his O2 sats were in the low 80s by ED physician. ABG at presentation demonstrated mild hypoxemia with hypercapnia. Hypercapnia appears chronic on review of prior labs and was actually improved. He was able to be weaned to room air and maintained adequate oxygen saturations Supportive care provided including bronchodilators, expectorants, incentive spirometry (2) Community acquired pneumonia: Code(s): J18.9 - Pneumonia, unspecified organism Status: Acute Assessment and Plan: CXR shows perihilar opacities with bronchial wall thickening consistent with pneumonia Received IV ceftriaxone. Completed 5 days of IV azithromycin Aspiration pneumonia from seizure activity considered. No evidence for dysphagia on exam. He will continue Augmentin as an outpatient for coverage. Supportive care provided as described above Blood cultures negative Sputum culture not obtained as he did not have sputum production COVID negative on 07/05/2021 (3) Unresponsive episode: Code(s): R41.89 - Other symptoms and signs involving cognitive functions and awareness Status: Acute Assessment and Plan: Poorly responsive on presentation. Likely postictal as patient and his caregiver reported episode consistent with seizure Resolved. He remained A&Ox4 on my encounter (4) Seizures: Code(s): R56.9 - Unspecified convulsions Status: Acute Assessment and Plan: History of seizure disorder. Sounds as though he had a seizure prior to presentation Continue home regimen of p.o. Keppra 750 mg b.i.d, Depakote 250 mg b.i.d. and Topamax 25 mg q.p.m. (5) Dementia: Code(s): F03.90 - Unspecified dementia without behavioral disturbance Status: Acute Assessment and Plan: May be related to traumatic brain injury or Parkinsons disease A&O x4 on my encounters (6) Parkinson disease: Code(s): G20 - Parkinson's disease Status: Acute Assessment and Plan: No acute issues Continue home carbidopa/levodopa (7) History of DVT (deep vein thrombosis): Code(s): Z86.718 - Personal history of other venous thrombosis and embolism Status: Acute Assessment and Plan: Maintained on Eliquis DS: Summary Hospital Course Hospital Course: Date of admission: 07/05/2021 Date of discharge: 07/10/2021 Giuseppe Santana is a 56-year-old male with a history of chronic back pain, DVT on chronic anticoagulation, traumatic brain injury, coronary artery disease, and seizure disorder who presented to the emergency department on 07/05/2021 via EMS due to an unresponsive episode. He was noted to be hypoxic in the low 80s and was lethargic on arrival. Patient and caregiver report episode consistent with seizure prior to presentation and he was likely postictal. On presentation to the emergency department, his vital signs were stable, he was afebrile, he had leukocytosis with WBC 18.9, lactic 2.0, troponin negative, head CT showed no acute intracranial findings, and CXR showed small right pleural effusion with associated atelectasis and/or pneumonia. He was admitted to the hospitalist service for further evaluation and management. Please see above for further details. His mental status returned to baseline. He was jonel
== END 2021-07-10 14:50 | disposition home health service (06) | DRG 193 ==
LOC: ANHED 19:15 → ANHIMU 07-08 07:59 → ANH2MED 07-10 07:28 → ANHIMU 07-11 15:07
PROVIDERS: Internal Medicine; Nurse Practitioner; Admitting Provider Hospitalist; Emergency Provider Emergency Medicine; PCP Emergency Medicine; Visit Provider Physician Assistant
DX: J18.9 Pneumonia, unspecified organism (principal); J96.01 Acute respiratory failure with hypoxia; J96.02 Acute respiratory failure with hypercapnia; Z20.822 Contact with and (suspected) exposure to COVID-19; G40.909 Epilepsy, unspecified, not intractable, without status epilepticus; G20 Parkinson's disease; F02.80 Dementia in other diseases classified elsewhere, unspecified severity, without behavioral disturbance, psychotic disturbance, mood disturbance, and anxiety; R41.89 Other symptoms and signs involving cognitive functions and awareness; I25.10 Atherosclerotic heart disease of native coronary artery without angina pectoris; M54.9 Dorsalgia, unspecified; G89.29 Other chronic pain; M19.90 Unspecified osteoarthritis, unspecified site; E04.1 Nontoxic single thyroid nodule; D50.9 Iron deficiency anemia, unspecified; F41.8 Other specified anxiety disorders; F17.210 Nicotine dependence, cigarettes, uncomplicated; I25.2 Old myocardial infarction; Z86.718 Personal history of other venous thrombosis and embolism; Z79.01 Long term (current) use of anticoagulants; Z87.820 Personal history of traumatic brain injury; Z95.5 Presence of coronary angioplasty implant and graft
CPT/HCPCS: 36415; 36600; 70450; 71045; 80048; 80053; 80307; 81001; 82375; 82805; 82948; 83050; 83605; 83615; 83690; 83735; 84100; 84439; 84443; 84480; 84484; 85025; 85027; 85610; 85730; 87040; 93005; 94002; 94003; 94640; 96361; 96365; 96375; 97110; 97116; 97161; 97165; 97530; 97535; 99285; A9270; C9113; C9803; J0456; J0696; J1100; J1650; J1940; J1953; J2060; J2543; J2930; J7120; U0003; U0005

== ENCOUNTER 2021-07-15 13:35 | Inpatient (IN) | payer MEDICARE, SELFPAY ==
[2021-07-15] VITALS (26 sets, daily range): BP systolic 91–103; BP diastolic 46–59; PULSE 69–80; RESP 8–20; TEMP 35–36.8; O2SAT 88–100
--- NOTE | ~2021-07-15 | XR_ITS ---
EXAMINATION: XR chest 1V portable DATE: 07/15/2021 14:51 INDICATION: Shortness of breath. TECHNIQUE: A single frontal view of the chest was obtained. COMPARISON: Chest single view 07/08/2021, chest CT 05/09/2019 FINDINGS: There is a small right pleural effusion. There are airspace opacities in the right mid and lower lung zones and left lower lung zone. No pneumothorax. The heart size is normal. IMPRESSION: 1. Stable small right pleural effusion. 2. Mildly worsened airspace opacities in right mid and lower lung zones and left lower lung zone, con sistent with atelectasis versus pneumonia. Reviewed, dictated and finalized at location A. IMPRESSION: 1. Stable small right pleural effusion. 2. Mildly worsened airspace opacities in right mid and lower lung zones and lef t lower lung zone, consistent with atelectasis versus pneumonia.
--- NOTE | ~2021-07-15 | US_ITS ---
EXAMINATION: US renal BI DATE: 07/16/2021 11:07 INDICATION: Elevated creatinine TECHNIQUE: Multiple ultrasound grayscale images of the kidneys were obtained. COMPARISON: 08/27/2020 FINDINGS: The right kidney measures 13.9 x 5.0 x 5.0 cm. The left kidney measures 11.5 x 6.4 x 5.4 cm. The kidn eys demonstrate normal echogenicity. There is no hydronephrosis in either kidney. No stones identifi ed. The bladder is normal. IMPRESSION: 1. Normal kidneys without hydronephrosis. Reviewed, dictated and finalized at location B.
--- NOTE | ~2021-07-15 | NM_ITS ---
EXAMINATION: NM pulmonary perfusion DATE: 07/16/2021 12:00 INDICATION: Shortness of breath. TECHNIQUE: 5 mCi Tc-99m MAA was administered intravenously for perfusion images. Scintigraphic image s of the chest were obtained. COMPARISON: Chest single view 07/15/2021 FINDINGS: Perfusion images show small defects in left upper lobe and left lower lobe. There are large defects t hroughout right lower lobe. There are small defects in right upper lobe. IMPRESSION: 1. Nondiagnostic (intermediate probability for pulmonary embolism). Reviewed, dictated and finalized at location A.
--- NOTE | 2021-07-15 13:53 | ECG_ITS ---
Measurements Intervals [place] Rate: 93 P: 6 NC: 121 QRS: -32 QRSD: 117 T: -40 QT: 425 QTc: 531 Interpretive Statements SINUS RHYTHM ATRIAL TRIPLET AND ATRIAL PREMATURE COMPLEX LEFT AXIS DEVIATION INTRAVENTRICULAR CONDUCTION DELAY POOR R WAVE PROGRESSION, ANTERIOR LEADS T WAVE ABNORMALITY IN ANT/INF LEADS- CONSIDER ISCHEMIA BASELINE ARTIFACT- II, V3-V6 ABNORMAL ECG Electronically Signed On 07-15-2021 13:55:25 CDT by Galindo Watts D.O.
--- NOTE | 2021-07-15 14:11 | ED.GENADULT ---
HPI - General Adult General Chief complaint: Shortness of Breath/Dyspnea Stated complaint: LOW O2 SATS/AMS Time Seen by Provider: 07/15/21 13:38 Source: patient and EMS History of Present Illness HPI narrative: Patient is a 56 y/o male brought in by EMS for low pulse ox. Patient is poor historian and does not know why he is here. He denies any pain or SOB. EMS reports that they were called for SOB. When they arrived, patient's pulse ox was in 70s. He was given Neb and placed on NRB. He currently denies SOB. Related Data Home Medications Medication Instructions Recorded Confirmed alprazolam 1 mg PO BID 09/23/19 07/15/21 carbidopa-levodopa 1 tablet PO TID 09/23/19 07/15/21 divalproex 250 mg PO BID 09/23/19 07/15/21 escitalopram oxalate 20 mg PO DAILY 09/23/19 07/15/21 gabapentin 300 mg PO TID 09/23/19 07/15/21 levetiracetam 750 mg PO BID 09/23/19 07/15/21 pentoxifylline 400 mg PO BID 09/23/19 07/15/21 topiramate 25 mg PO QPM 09/23/19 07/15/21 Xtampza ER 13.5 mg PO BID 05/01/21 07/15/21 Allergies Allergy/AdvReac Type Severity Reaction Status Date / Time No Known Allergies Allergy Verified 07/05/21 14:37 Review of Systems Review of Systems: ROS unobtainable: Yes unobtainable due to mental status PMFSH Past Medical History Medical History Arthritis Chronic pain syndrome Chronic seasonal allergic rhinitis Current use of custodial anticoagulation Deep vein thrombosis of right lower limb (~04/2019) Extensive, occlusive DVT from the right common femoral vein through the peroneal and posterior tibial veins. Attempted angioplasty was unsuccessful and he was transferred to [facility] for further and intervention. Now on long-term anticoagulation with Eliquis. Dementia Depression with anxiety Impetigo (~09/2019) Iron deficiency anemia Left thyroid nodule Noted on CT in April 2019. shelter prescription opiate use Myocardial infarction Previously documented history of stent x1 however the patient is adamant that he has no history of coronary disease. Obesity (BMI 30.0-34.9) Parkinson disease Peripheral vascular disease Positive colorectal cancer screening using Cologuard test Seizures Traumatic brain injury Wrist fracture Surgical History Surgical History History of coronary artery stent placement History of mastoidectomy With resultant mild, chronic hearing loss. History of tonsillectomy Family History Family History Mother Cervical cancer Skin cancer Social History Social History Social History: The patient lives in his own home in [place] but he has been staying with his mother recently after the of his father. He ambulates with a walker and has a friend come to the house daily to help with chores, etc. He smoked just about a pack of cigarettes per day since he was a teenager and now smokes maybe a few cigarettes a day. No alcohol or illicit substance use. He designates his friend, Maryse Garcia, as his surrogate decision maker and he wishes to be a full code. Smoking packs per day: 0.5 Smoking cigarettes per day: 10.0 Years smoked: 40 Smoking pack-years: 20.00 Smoking status: Light tobacco smoker Tobacco type: cigarettes Second hand tobacco smoke exposure: No Alcohol intake: never Substance use: unknown Substance use type: does not use Gender identity (if verbalized by the patient): Male Spiritual care concerns: No Agree to blood products: Yes Exam Const: General: no acute distress and well developed Orientation/consciousness: oriented to person, oriented to place and confusion HENMT: Head: normocephalic Ears: external ears normal General nose exam: Normal external nose present Eyes: General: appearance normal, both eyes and all related structu
[2021-07-15 14:24] LABS: Alveolar/Arterial O2 Gradient 59.2 mmHg; Fractional Inspired Oxygen 36 %; HCO3 ABG 26.6 mEq/l (22.0-26.0); Oxygen Content ABG 17.2 %vol (16.0-22.0); Oxygen Saturation ABG 98.2 % (95.0-100.0); Oxyhemoglobin 95.7 % THb (90.0-100.0); PCO2 ABG 57.4 mmHg (35.0-45.0); PO2 ABG 130.9 mmHg (80.0-100.0); PO2 FiO2 Ratio Arterial Blood 3.64 %; Total Hemoglobin 12.6 g/dL (12.0-18.0)
[2021-07-15 14:25] LABS: Device NASAL CANNULA; Modified Allen's Test Pass; Site Drawn RIGHT RADIAL; pH ABG 7.284 (7.350-7.450)
[2021-07-15 15:29] LABS: Basophils Absolute Auto 0.1 K/mm3 (0.0-0.1); Basophils Percent Auto 0.6 % (0.2-1.2); Eosinophils Percent Auto 0.1 % (0-4.4); Hematocrit 36.7 % (42.0-52.0); Hemoglobin 11.1 g/dL (14.0-18.0); Immature Granulocyte Absolute 0.54 K/mm3 (0.00-0.031); Immature Granulocyte Percent A 3.8 % (0-0.5); Lymphocytes Absolute Auto 1.82 K/mm3 (0.9-3.2); Lymphocytes Percent Auto 12.7 % (18.3-44.2); Mean Corpuscular HGB Conc 30.2 g/dl (32-36); Mean Corpuscular Hemoglobin 29.8 pg (26-34); Mean Corpuscular Volume 98.4 fl (80-100); Mean Platelet Volume 8.9 fl (7.4-10.4); Monocytes Absolute Auto 1.3 K/mm3 (0.1-0.6); Monocytes Percent Auto 9.1 % (2.6-8.5); Neutrophils Absolute Auto 10.6 K/mm3 (1.3-6.7); Neutrophils Percent Auto 73.7 % (45.5-73.1); Platelet Count Result 244 k/mm3 (150-375); Red Blood Count 3.73 M/mm3 (4.6-6.20); Red Cell Distribution Width 16.2 % (11.5-14.5); White Blood Count 14.4 K/mm3 (4.5-10.0)
[2021-07-15 15:37] LABS: Add Urine Microscopic? YES; Appearance Urine Clear (Clear); Bilirubin Urine 1+ (Negative); Blood Urine Negative (Negative); Color Urine Amber (Yellow); Glucose Urine UA Negative (Negative); Ketones Urine Trace mg/dL (Negative); Leukocyte Esterase Ur Negative LEU/UL (Negative); Mucus Urine Rare /lpf; Nitrate Urine Negative (Negative); Protein Urine 1+ mg/dL (Negative); Specific Grav Ur 1.025 (1.001-1.035); Squamous Epithelial Cell Urine Occasional /hpf (Few)
[2021-07-15 15:41] LABS: Amphetamine Screen Urine Negative (Negative); Barbiturate Screen Urine Negative (Negative); Benzodiazepines Screen Urine Positive (Negative); Cannabinoid Screen Urine Negative (Negative); Cocaine Screen Urine Negative (Negative); Methadone Screen Urine Negative (Negative); Opiate Screen Urine Positive (Negative); Phencyclidine Screen Urine Negative (Negative)
[2021-07-15 15:43] LABS: D Dimer 2.81 ug/mL (<0.48)
[2021-07-15 15:44] LABS: Albumin Level 3.3 g/dL (3.5-5.1); Alkaline Phosphatase 143 U/L (38-126); Anion Gap 9 mmol/L (8-16); Aspartate Amino Transferase 17 U/L (17-59); Bilirubin,Total 1.1 mg/dL (0.2-1.3); Blood Urea Nitrogen 21 mg/dL (9-20); Calcium 8.7 mg/dL (8.4-10.2); Carbon Dioxide 31 mmol/L (22-30); Chloride 90 mmol/L (98-107); Estimated CRCL calculation 54 ml/min; Estimated Glomerular Filt Rate 37; Glucose 153 mg/dL (65-110); Potassium 3.8 mmol/L (3.4-5.0); Sodium 130 mmol/L (137-145)
[2021-07-15 15:47] LABS: Alanine Aminotransferase < 6 U/L (4-50)
--- NOTE | 2021-07-15 18:52 | ADMGEN ---
This patient, Giuseppe Santana, was admitted to 3 [facility] Surg Room 330-01 at 1845. Patient/family oriented to hospital policies and general routines including ID bracelet, bed and alarms, visiting hours, pain management, procedures, bathroom and other care routines, personal items, smoking policy, room service/diet, and visiting hours. Information on how to activate the Rapid Response Team has been discussed. Patient/Family are encouraged to report perceived risks to care and to ask questions if they do not understand what they are told or what they should do.
--- NOTE | 2021-07-15 20:13 | PM.IMHP ---
H&P: HPI History of Present Illness Date/Time: 07/15/21 20:13 Chief Complaint: Altered mental status Narrative: This is a 56-year-old male with past medical history significant for traumatic brain injury, Parkinson's disease, dementia, depression with anxiety, iron deficiency anemia, thyroid nodule, chronic pain syndrome, chronic opiate use. Patient was brought to the emergency room due to altered mental status he just recently was discharged from our service after he was treated for presumable aspiration pneumonia and sent home on amoxicillin. Most of the history has been obtained from reviewing medical records emergency room medical records as well. At the time of my visit patient was obtunded did not provide any history. Preliminary workup was significant for chest x-ray with worsening infiltrates of the lungs, a WBC count of 14,000, a blood gases show a pH of 7.284, pCO2 of 57 and PO2 of 130 a chemistry panel showed a sodium of 130 a chloride of 90 a BUN and creatinine of 21/1.9 respectively. Patient has been admitted for further management evaluation and treatment. Review of Systems Review of Systems: ROS unobtainable: Yes unobtainable due to medical condition (Obtunded) [facility] Past Medical History Medical History (Updated 07/16/21 @ 01:43 by Poonam Zaidi MD) Arthritis Chronic pain syndrome Chronic seasonal allergic rhinitis Current use of residential anticoagulation Deep vein thrombosis of right lower limb (~04/2019) Extensive, occlusive DVT from the right common femoral vein through the peroneal and posterior tibial veins. Attempted angioplasty was unsuccessful and he was transferred to [place] for further and intervention. Now on long-term anticoagulation with Eliquis. Dementia Depression with anxiety Impetigo (~09/2019) Iron deficiency anemia Left thyroid nodule Noted on CT in April 2019. [facility] prescription opiate use Myocardial infarction Previously documented history of stent x1 however the patient is adamant that he has no history of coronary disease. Obesity (BMI 30.0-34.9) Parkinson disease Peripheral vascular disease Positive colorectal cancer screening using Cologuard test Seizures Traumatic brain injury Wrist fracture Surgical History Surgical History History of coronary artery stent placement History of mastoidectomy With resultant mild, chronic hearing loss. History of tonsillectomy Family History Family History Mother Cervical cancer Skin cancer Social History Social History Social History: The patient lives in his own home in [place] but he has been staying with his mother recently after the of his father. He ambulates with a walker and has a friend come to the house daily to help with chores, etc. He smoked just about a pack of cigarettes per day since he was a teenager and now smokes maybe a few cigarettes a day. No alcohol or illicit substance use. He designates his friend, Maryse Garcia, as his surrogate decision maker and he wishes to be a full code. Smoking packs per day: 0.5 Smoking cigarettes per day: 10.0 Years smoked: 40 Smoking pack-years: 20.00 Smoking status: Light tobacco smoker Tobacco type: cigarettes Second hand tobacco smoke exposure: No Alcohol intake: never Substance use: unknown Substance use type: does not use Gender identity (if verbalized by the patient): Male Spiritual care concerns: No Agree to blood products: Yes Meds Home Medications and Allergies Home Medications Medication Instructions Recorded Confirmed Type Eliquis 5 mg PO BID 09/23/19 07/15/21 History alprazolam 1 mg PO BID 09/23/19 07/15/21 History carbidopa-levodopa 1 tablet PO TID 09/23/19 07/15/21 History divalproex 250 mg PO BID 09/23/19 07/15/21 History escitalopram oxalate 20 mg PO DAILY
[2021-07-15 21:48] LABS: NT Pro B Type Natriuretic Pept 6790 pg/mL (5-100)
[2021-07-15] MEDS: LOVASTATIN 20 MG TABLET PO (23:45)
[2021-07-15] MEDS: APIXABAN 5 MG TABLET PO (23:45)
[2021-07-15] MEDS: levETIRAcetam 250 MG TABLET 750 MG PO (23:45)
--- NOTE | 2021-07-15 23:54 | ADMGEN ---
This patient, Giuseppe Santana, was admitted to [facility] Room 330-01. Patient/family oriented to hospital policies and general routines including ID bracelet, bed and alarms, visiting hours, pain management, procedures, bathroom and other care routines, personal items, smoking policy, room service/diet, and visiting hours. Information on how to activate the Rapid Response Team has been discussed. Patient/Family are encouraged to report perceived risks to care and to ask questions if they do not understand what they are told or what they should do.
[2021-07-16] VITALS (13 sets, daily range): BP systolic 91–100; BP diastolic 47–66; PULSE 58–80; RESP 12–20; TEMP 36.3–36.8; O2SAT 92–100
[2021-07-16] MEDS: ALBUTEROL SULFATE (*SP) INHALER 2 PUFF INHALATION ×5 (04:42→20:10)
[2021-07-16] MEDS: ERYTHROMYCIN OPHTH OINTMENT 1 GM TUBE 1 APPLIC RIGHT EYE ×5 (06:32→21:12)
--- NOTE | 2021-07-16 08:38 | PM.IMPN ---
Progress Note: A&P Additional Plan START OF DOCTOR SANA?S PROGRESS NOTE Subjective: The patient states that his respiratory status has improved compared to how he felt upon being hospitalized. Overnight he denies fever, rigors, nausea, vomiting, cough, wheeze, abdominal pain, chest pain, dyspnea on supplemental oxygen. He indicates that he does not use supplemental oxygen at home. Patient appears to be hard of hearing but appears to be able to answer questions appropriately. I have explained to the patient his current medical condition plan of care and I have answered all his questions Objective: General: -Alert -No acute distress -No dyspnea -No tachypnea Heart: -Regular rate -Regular rhythm -No murmurs -No gallops -No rubs Lungs: -No wheeze -No rhonchi -No rales -distant breath sounds bilaterally Abdomen: -Normal bowel sounds in all four quadrants -No rebound -No guarding -No tenderness Extremities: -2/4 pulse in all four extremities -No clubbing -No cyanosis -gross right lower extremity edema present, trace left lower extremity edema present Additional Details / Additional Findings / Exceptions / Miscellaneous: Pertinent Laboratory Results / Pertinent Radiology Results / Pertinent Diagnostic Results / Pertinent Vital Signs: Patient saturating 98% 5 L. Blood pressure 100/61 Assessment / Plan: Pneumonia. Azithromycin 500 mg IV daily plus cefepime 2 g IV q.12 hours post vancomycin 1500 mg IV daily plus Proventil HFA: 90 mg per spray: 2+ q.4 hours. Because of history of smoking, Solu-Medrol 60 mg IV q.8 hours History of traumatic brain injury Parkinson's disease. Carbidopa/levodopa: 25/250 mg p.o. t.i.d. Dementia Depression. Lexapro 20 mg p.o. daily Anxiety Iron deficiency anemia History of left thyroid nodule. Outpatient monitoring with his primary care physician Chronic pain with opiate dependence. Oxycodone XR 10 mg p.o. q.12 hours Arthritis Seasonal allergies History of right lower extremity DVT. Eliquis 5 mg p.o. q.12 hours Neuropathy. Gabapentin 300 mg p.o. t.i.d. Coronary artery disease, status post [place], status post stent. Lovastatin 20 mg p.o. q.h.s. Obesity. Patient counseled regarding lifestyle modification Peripheral vascular disease. Lovastatin 20 mg p.o. q.h.s. plus Trental 400 mg p.o. b.i.d. History of seizure. Depakote 250 mg p.o. b.i.d. plus Keppra 750 mg p.o. q.12 hours plus Topamax 25 mg p.o. q.h.s. Positive Cologuard test. Outpatient follow-up with gastroenterology upon discharge if he is not already been evaluated Hyperlipidemia. Lovastatin 20 mg p.o. q.h.s. Hyponatremia, chronic, intermittent. Monitor sodium levels intermittently. IV nor sounds 75 mL/hour Acute renal insufficiency. Will monitor creatinine level intermittently. IV normal saline 75 mL/hour GI prophylaxis. Protonix 40 mg p.o. daily DVT prophylaxis. Eliquis 5 mg p.o. q.12 hours Disposition: Anticipate discharge in 48-96 hours END OF DOCTOR SANA?S PROGRESS NOTE Subjective Date/time seen: 07/16/21 08:38 Objective Data Vital Signs Vital Signs: Vital Signs - 24 hr 07/15/21 13:37 07/15/21 13:46 07/15/21 13:58 Temperature 95 F L Pulse Rate 80 80 Respiratory Rate 12 Blood Pressure 102/46 L Pulse Oximetry 88 L 99 07/15/21 15:04 07/15/21 15:24 07/15/21 16:25 Temperature Pulse Rate 78 76 70 Respiratory Rate 12 11 L 9 L Blood Pressure 93/51 L Pulse Oximetry 99 99 98 07/15/21 16:30 07/15/21 16:31 07/15/21 16:32 Temperature Pulse Rate 71 70 73 Respiratory Rate 14 9 L 10 L Blood Pressure 91/56 L Pulse Oximetry 98 99 98 07/15/21 16:45 07/15/21 16:46 07/15/21 17:09 Temperature Pulse Rate 69 72 72 Respiratory Rate 9 L 9 L 14 Blood Pressure 92/58 L Pulse Oximetry 99 99 99 07/15/21 17:15 07/15/21 17:16 07/15/21 17:30 Temperature Pulse Rate 70 70 71 Respiratory Rate 8
[2021-07-16] MEDS: SODIUM CHLORIDE 0.9% IV 1,000 ML 75 ML IV CONT (09:00)
[2021-07-16] MEDS: CARBIDOPA/LEVODOPA 25/250 MG TABLET 1 TABLET PO ×3 (09:04→17:10)
[2021-07-16] MEDS: ESCITALOPRAM OXALATE 10 MG TABLET 20 MG PO (09:04)
[2021-07-16] MEDS: levETIRAcetam 250 MG TABLET 750 MG PO ×2 (09:04→21:12)
[2021-07-16] MEDS: GABAPENTIN 300 MG CAPSULE PO ×3 (09:04→17:10)
[2021-07-16] MEDS: APIXABAN 5 MG TABLET PO (09:04)
[2021-07-16] MEDS: DIVALPROEX SODIUM DR 250 MG TABEC PO ×2 (09:04→17:10)
[2021-07-16] MEDS: PENTOXIFYLLINE 400 MG TABCR PO ×2 (09:05→17:10)
[2021-07-16] MEDS: SACCHAROMYCES BOULARDII 250 MG CAPSULE PO ×2 (09:05→17:10)
[2021-07-16 09:09] LABS: Basophils Percent Auto 0.4 % (0.2-1.2); Eosinophils Absolute Auto 0.1 K/mm3 (0-0.3); Eosinophils Percent Auto 0.5 % (0-4.4); Hemoglobin 10.4 g/dL (14.0-18.0); Immature Granulocyte Percent A 2.7 % (0-0.5); Lymphocytes Absolute Auto 1.25 K/mm3 (0.9-3.2); Lymphocytes Percent Auto 11.4 % (18.3-44.2); Mean Corpuscular HGB Conc 29.7 g/dl (32-36); Mean Corpuscular Hemoglobin 29.7 pg (26-34); Mean Platelet Volume 8.7 fl (7.4-10.4); Monocytes Absolute Auto 0.8 K/mm3 (0.1-0.6); Monocytes Percent Auto 7.4 % (2.6-8.5); Neutrophils Absolute Auto 8.6 K/mm3 (1.3-6.7); Neutrophils Percent Auto 77.6 % (45.5-73.1); Platelet Count Result 240 k/mm3 (150-375); Red Cell Distribution Width 16.5 % (11.5-14.5)
[2021-07-16 09:18] LABS: Anion Gap 6 mmol/L (8-16); Blood Urea Nitrogen 22 mg/dL (9-20); Calcium 8.4 mg/dL (8.4-10.2); Carbon Dioxide 35 mmol/L (22-30); Chloride 89 mmol/L (98-107); Estimated CRCL calculation 53 ml/min; Estimated Glomerular Filt Rate 42; Glucose 170 mg/dL (65-110); Sodium 130 mmol/L (137-145)
[2021-07-16 09:42] LABS: Troponin I 0.249 ng/mL (0.000-0.034)
[2021-07-16] MEDS: PANTOPRAZOLE 40 MG TABLET PO (09:48)
[2021-07-16] MEDS: methylPREDNISolone SOD SUCC 125 MG VIAL 60 MG IV PUSH ×3 (09:48→21:11)
--- NOTE | 2021-07-16 10:01 | PM.CNNEP ---
Assessment and Plan Assessment and plan (1) Acute kidney injury: Code(s): N17.9 - Acute kidney failure, unspecified Status: Acute Assessment and Plan: The patient has acute kidney injury. His creatinine was 1.7 yesterday and 1.5 today. He has had renal failure in the past when he had an episode of sepsis and hypotension. This improved back to his normal creatinine of 1.0. Apparently he is making some urine but it is hard to know how much because he is incontinent. The patient was obtunded when he came in. I suspect that the patient may not have been eating and drinking very well before he came in and so he has dehydration. He is getting some IV fluids and the creatinine is better. The patient could also have obstruction. He could have some prostatic obstruction. He could have passed a stone asymptomatically in blocked off 1 kidney. Will check an ultrasound. He could have rhabdomyolysis. Will check a CK. Glomerulonephritis is unlikely in this situation. interstitial nephritis is possible because he was on an antibiotic from the prior very recent admission. But this would not be getting better so soon. He also has no suggestive rash nor eosinophilia. At this point will get a renal ultrasound, urine electrolytes, continue IV fluids. Will check a renal panel in the morning (2) Hyponatremia: Code(s): E87.1 - Hypo-osmolality and hyponatremia Status: Acute Assessment and Plan: Sodium level is a little bit on the low side. He has had this off and on for the last couple of years. He is on chronic narcotics and also chronic antidepressants. In addition he is on diuretics. And finally he had traumatic brain injury in the past. The degree of hyponatremia is very mild and it is chronic so I think he is okay. Will check a cortisol and a TSH just to make sure there is nothing easily fixable. (3) Healthcare associated bacterial pneumonia: Code(s): J15.9 - Unspecified bacterial pneumonia Status: Acute Assessment and Plan: He is getting broad-spectrum antibiotics. He is getting checked for COVID. (4) Altered mental status: Code(s): R41.82 - Altered mental status, unspecified Status: Acute Assessment and Plan: His mental status is better than it was in the ER last night. I am not sure what his baseline is (5) Suspected COVID-19 virus infection: Code(s): Z20.822 - Contact with and (suspected) exposure to COVID-19 Status: Acute Assessment and Plan: He is on isolation right now. COVID test is pending History of Present Illness Reason for Consult Consult date: 07/16/21 Chief Complaint Chief complaint: COPD exacerbation/DK History of Present Illness Narrative: Giuseppe is a very pleasant 56-year-old gentleman who has multiple medical problems including dementia, traumatic brain injury, chronic pain and anxiety, coronary disease status post stent, iron deficiency anemia, DVT, long-term anticoagulation, arthritis, who came in the hospital with lethargy. He was recently discharged to his [facility] from a hospitalization due to aspiration pneumonia. On arrival to the emergency room he was obtained id. He was hypoxic as well. He received a neb treatment and was placed on oxygen and he improved. He was admitted to the hospital. Opioids and benzodiazepines were withheld. The patient he is more awake this morning and says ?everything is okay?. Chest x-ray was performed and shows worsened airspace opacities in the right mid and lower lung zones and also left lower lung zones. A COVID test was checked and the patient was admitted to the hospital. He denies any shortness of breath, chest pain, itching, belly pain. He has no cough. Patient's creatinine was noted to be elevated on admission. This morning's a little bit better. The patient has incontinence so urine output is not being measured. He denies any past history of kidney disease. [facility]
[2021-07-16 11:47] LABS: Creatine Kinase < 20 U/L (55-170)
[2021-07-16] MEDS: ASPIRIN 81 MG CHEWABLE TABLET PO (12:12)
[2021-07-16 13:02] LABS: Creatinine Urine 108.9 mg/dL; Total Protein Urine Random 23 mg/dL; Ur Ttl Prot Creatinine Ratio 0.21 mg/mg (0-0.20)
[2021-07-16 13:11] LABS: Basophils Percent Auto 0.2 % (0.2-1.2); Eosinophils Percent Auto 0.1 % (0-4.4); Hematocrit 34.9 % (42.0-52.0); Hemoglobin 10.5 g/dL (14.0-18.0); Immature Granulocyte Absolute 0.23 K/mm3 (0.00-0.031); Immature Granulocyte Percent A 2.6 % (0-0.5); Lymphocytes Absolute Auto 0.38 K/mm3 (0.9-3.2); Lymphocytes Percent Auto 4.2 % (18.3-44.2); Mean Corpuscular HGB Conc 30.1 g/dl (32-36); Mean Corpuscular Hemoglobin 30.5 pg (26-34); Mean Corpuscular Volume 101.5 fl (80-100); Mean Platelet Volume 8.8 fl (7.4-10.4); Monocytes Absolute Auto 0.3 K/mm3 (0.1-0.6); Monocytes Percent Auto 2.8 % (2.6-8.5); Neutrophils Absolute Auto 8.1 K/mm3 (1.3-6.7); Neutrophils Percent Auto 90.1 % (45.5-73.1); Platelet Count Result 221 k/mm3 (150-375); Red Blood Count 3.44 M/mm3 (4.6-6.20); Red Cell Distribution Width 16.4 % (11.5-14.5)
[2021-07-16 13:14] LABS: Sodium Urine Random < 5 meq/L
[2021-07-16 13:17] LABS: INR 1.8; Prothrombin Time 20.8 Seconds (11.1-14.7)
[2021-07-16 13:18] LABS: Partial Thromboplastin Time 36.1 SECONDS (22.3-36.8)
--- NOTE | 2021-07-16 13:57 | PHAR ---
PER DR. HOOD DO NOT WAIT TO START HEPARIN UNTIL 9PM - PER HEPARIN GTT IS TO START NOW INSTEAD OF WHEN NEXT APIXABAN DOSE WOULD BE DUE.
[2021-07-16] MEDS: HEPARIN SOD/D5W 100 UNITS/ML 25,000 UNITS/250 ML BAG 10 UNITS IV CONT (14:18)
[2021-07-16 14:26] LABS: Hypochromasia 1+ (NORMAL); Platelet Estimate Adequate (Adequate)
[2021-07-16 14:27] LABS: Anisocytosis 2+ (NORMAL)
[2021-07-16 15:11] LABS: Troponin I 0.161 ng/mL (0.000-0.034)
[2021-07-16] MEDS: TOPIRAMATE 25 MG TABLET PO (17:10)
[2021-07-16 19:14] LABS: SARS-CoV-2 RNA PCR Negative
[2021-07-16 20:35] LABS: Partial Thromboplastin Time 35.8 SECONDS (22.3-36.8)
[2021-07-16] MEDS: HEPARIN SODIUM 5,000 UNITS/ML VIAL 4000 UNITS IV PUSH (21:11)
[2021-07-17] VITALS (12 sets, daily range): BP systolic 88–118; BP diastolic 59–67; PULSE 49–73; RESP 18; TEMP 36.1–36.3; O2SAT 90–97
--- NOTE | 2021-07-17 | ECHO_ITS ---
Patient Info Name: Giuseppe Santana Age: 56 years : 1965 Gender: Male Ht: 75 in Wt: 238 lbs BSA: 2.41 m2 HR: 67 bpm BP: 118 / 64 mmHg Heart Rhythm: Sinus Rhythm Exam Date: 07/17/2021 1:26 PM Exam Location: [facility] Patient Status: Inpatient Admit Date: 07/15/2021 Staff Ordering Physician: Poonam Zaidi MD Assistant Laboratory Director: Vahe Osborne RDCS, RT Attending Provider: Issac Andrea MD Referring Physician: Dyan GUEVARA; Exam Type: CA echo doppler color flow Study Info Indications I50.9 - Heart failure, unspecified Complete two-dimensional, color flow and Doppler transthoracic echocardiogram is performed. History/Risk Factors Deep Vein Thrombosis (DVT): Acute Summary 1. Complete two-dimensional, color flow and Doppler transthoracic echocardiogram is performed. 2. Left ventricular chamber dimension is normal. 3. Left ventricular systolic function is normal, estimated at 65-70%. 4. There is mildly increased left ventricular wall thickness. 5. The left ventricular diastolic function is normal. 6. There is mild mitral valve regurgitation. 7. There is mild tricuspid valve regurgitation. 8. Mild pulmonary hypertension, estimated pulmonary arterial systolic pressure is 35 mmHg. Left Ventricle Left ventricular chamber dimension is normal. Left ventricular systolic function is normal, estimated at 65-70%. There is mildly increased left ventricular wall thickness. The left ventricular diastolic function is normal. Right Ventricle Right ventricular chamber dimension is normal. Right ventricular systolic function is normal. Left Atria Left atrial chamber dimension is normal. Right Atria Right atrial chamber dimension is normal. Atrial Septum Intact interatrial septum visualized by color flow imaging. Aortic Valve The aortic valve is trileaflet. There is mild aortic valve sclerosis. There is no aortic valve stenosis. There is trace aortic valve regurgitation. Pulmonic Valve The pulmonic valve is normal. There is no pulmonic valve stenosis. There is trace pulmonic regurgitation. Mitral Valve The mitral valve has normal leaflets. There is no mitral valve stenosis. There is mild mitral valve regurgitation. Tricuspid Valve The tricuspid valve leaflets are normal. There is no significant tricuspid valve stenosis. There is mild tricuspid valve regurgitation. Mild pulmonary hypertension, estimated pulmonary arterial systolic pressure is 35 mmHg. Pericardium/Pleural The pericardium appears normal. There is no pericardial effusion. Inferior Vena Cava Dilated inferior vena cava with <50% collapse upon inspiration consistent with elevated right atrial pressure, 15 mmHg. Aorta The aortic root size at the sinus of Valsalva is normal. The prox ascending aorta size is normal. Left Ventricular Outflow Tract Name Value Normal LVOT 2D LVOT Diameter 2.4 cm LVOT Doppler LVOT Peak Gradient 4 mmHg LVOT Mean Gradient 2 mmHg LVOT VTI 22 cm LVOT VTI/A
[2021-07-17] MEDS: ALBUTEROL SULFATE (*SP) INHALER 2 PUFF INHALATION ×4 (00:32→15:05)
[2021-07-17] MEDS: SODIUM CHLORIDE 0.9% IV 1,000 ML 75 ML IV CONT ×2 (02:00→22:46)
[2021-07-17 03:34] LABS: Basophils Percent Auto 0.2 % (0.2-1.2); Hemoglobin 10.5 g/dL (14.0-18.0); Immature Granulocyte Absolute 0.08 K/mm3 (0.00-0.031); Immature Granulocyte Percent A 1.3 % (0-0.5); Lymphocytes Absolute Auto 0.59 K/mm3 (0.9-3.2); Lymphocytes Percent Auto 9.3 % (18.3-44.2); Mean Corpuscular Hemoglobin 29.9 pg (26-34); Mean Corpuscular Volume 99.7 fl (80-100); Mean Platelet Volume 9.1 fl (7.4-10.4); Monocytes Absolute Auto 0.1 K/mm3 (0.1-0.6); Monocytes Percent Auto 1.1 % (2.6-8.5); Neutrophils Absolute Auto 5.6 K/mm3 (1.3-6.7); Neutrophils Percent Auto 88.1 % (45.5-73.1); Platelet Count Result 199 k/mm3 (150-375); Red Blood Count 3.51 M/mm3 (4.6-6.20); Red Cell Distribution Width 15.9 % (11.5-14.5); White Blood Count 6.4 K/mm3 (4.5-10.0)
[2021-07-17 03:48] LABS: Albumin Level 3.1 g/dL (3.5-5.1); Anion Gap 8 mmol/L (8-16); Blood Urea Nitrogen 27 mg/dL (9-20); Calcium 8.3 mg/dL (8.4-10.2); Carbon Dioxide 31 mmol/L (22-30); Chloride 92 mmol/L (98-107); Estimated CRCL calculation 73 ml/min; Estimated Glomerular Filt Rate > 60; Glucose 177 mg/dL (65-110); Phosphorus 4.3 mg/dL (2.5-4.5); Potassium 4.8 mmol/L (3.4-5.0); Sodium 131 mmol/L (137-145)
[2021-07-17 03:54] LABS: Partial Thromboplastin Time 45.1 SECONDS (22.3-36.8)
[2021-07-17] MEDS: HEPARIN SODIUM 5,000 UNITS/ML VIAL 4000 UNITS IV PUSH ×2 (04:10→12:05)
[2021-07-17] MEDS: ERYTHROMYCIN OPHTH OINTMENT 1 GM TUBE 1 APPLIC RIGHT EYE ×5 (04:12→20:41)
--- NOTE | 2021-07-17 05:00 | ECG_ITS ---
Measurements Intervals [place] Rate: 63 P: 26 ND: 148 QRS: -26 QRSD: 117 T: -50 QT: 541 QTc: 555 Interpretive Statements SINUS RHYTHM INTRAVENTRICULAR CONDUCTION DELAY DELAYED PRECORDIAL R/S TRANSITION T WAVE ABNORMALITY IN ANT/INF LEADS- CONSIDER ISCHEMIA ABNORMAL ECG Electronically Signed On 07-17-2021 12:14:47 CDT by Galindo Watts D.O.
[2021-07-17] MEDS: methylPREDNISolone SOD SUCC 125 MG VIAL 60 MG IV PUSH ×3 (06:45→21:16)
--- NOTE | 2021-07-17 08:24 | PM.IMPN ---
Progress Note: A&P Additional Plan START OF DOCTOR SANA?S PROGRESS NOTE Subjective: The patient versus no complaints at this time. He denies fever, rigors, nausea, vomiting, cough, wheeze, abdominal pain, chest pain, dyspnea, lightheadedness, dizziness, diaphoresis, palpitations, sensation rapid heartbeat, sensation irregular heartbeat. He states that his breathing has improved compared to my encounter with him on July 16, 2021. I have explained to the patient his current medical condition plan of care and I have answered all his questions Objective: General: -Alert -No acute distress -No dyspnea -No tachypnea Heart: -Regular rate -Regular rhythm -No murmurs -No gallops -No rubs Lungs: -No wheeze -No rhonchi -No rales Abdomen: -Normal bowel sounds in all four quadrants -No rebound -No guarding -No tenderness Extremities: -2/4 pulse in all four extremities -No clubbing -No cyanosis -No edema Additional Details / Additional Findings / Exceptions / Miscellaneous: Pertinent Laboratory Results / Pertinent Radiology Results / Pertinent Diagnostic Results / Pertinent Vital Signs: Heart rate 49, blood pressure 88/67, 94% 2 L, hemoglobin 10.5, sodium her 31 Assessment / Plan: Pneumonia. Azithromycin 500 mg IV daily plus cefepime 2 g IV q.12 hours post vancomycin 1500 mg IV daily plus Proventil HFA: 90 mg per spray: 2+ q.4 hours. Because of history of smoking, Solu-Medrol 60 mg IV q.8 hours Elevated troponin, query NSTEMI. Aspirin 81 mg p.o. daily plus Lipitor 80 mg p.o. q.h.s. plus IV heparin drip per protocol. No beta marla or nitrates due to borderline hypotension. Query whether troponin elevation may be secondary to cardiac strain due to possible pulmonary embolism. Echocardiogram pending Intermediate probability of PE per V/Q scan. IV heparin drip per protocol Coagulopathy. Will monitor PT/INR periodically History of traumatic brain injury Parkinson's disease. Carbidopa/levodopa: 25/250 mg p.o. t.i.d. Dementia Depression. Lexapro 20 mg p.o. daily Anxiety Iron deficiency anemia History of left thyroid nodule. Outpatient monitoring with his primary care physician Chronic pain with opiate dependence. Oxycodone XR 10 mg p.o. q.12 hours Arthritis Seasonal allergies History of right lower extremity DVT. IV heparin drip per protocol Neuropathy. Gabapentin 300 mg p.o. t.i.d. Coronary artery disease, status post [place], status post stent. Lovastatin 20 mg p.o. q.h.s. Obesity. Patient counseled regarding lifestyle modification Peripheral vascular disease. Lovastatin 20 mg p.o. q.h.s. plus Trental 400 mg p.o. b.i.d. History of seizure. Depakote 250 mg p.o. b.i.d. plus Keppra 750 mg p.o. q.12 hours plus Topamax 25 mg p.o. q.h.s. Positive Cologuard test. Outpatient follow-up with gastroenterology upon discharge if he is not already been evaluated Hyperlipidemia. Lovastatin 20 mg p.o. q.h.s. Hyponatremia, chronic, intermittent. Monitor sodium levels intermittently. IV nor sounds 75 mL/hour Acute renal insufficiency. Will monitor creatinine level intermittently. IV normal saline 75 mL/hour Medical noncompliance. Patient counseled regarding medical compliance including taking his medications as directed GI prophylaxis. Protonix 40 mg p.o. daily DVT prophylaxis. IV heparin drip per protocol Disposition: Anticipate discharge within 12:48 p.m. with the assistance of case management/social work as the patient male replacement END OF DOCTOR REAL PROGRESS NOTE Subjective Date/time seen: 07/17/21 08:24 Objective Data Vital Signs Vital Signs: Vital Signs - 24 hr 07/16/21 10:08 07/16/21 12:00 07/16/21 12:45 Temperature 98.0 F Pulse Rate 80 Respiratory Rate 12 Blood Pressure 98/54 L Pulse Oximetry 95 94 97 07/16/21 16:00 07/16/21 17:09 07/16/21 17:16 Temperature 97.7 F Pulse Rate 62 Respiratory Rate 14
[2021-07-17] MEDS: HEPARIN SOD/D5W 100 UNITS/ML 25,000 UNITS/250 ML BAG 18 UNITS IV CONT (09:20)
[2021-07-17] MEDS: ESCITALOPRAM OXALATE 10 MG TABLET 20 MG PO (09:24)
[2021-07-17] MEDS: ARTIFICIAL TEARS OPHTH SOLN 15 ML BOTTLE 1 DROP EACH EYE (09:25)
[2021-07-17] MEDS: GABAPENTIN 300 MG CAPSULE PO ×3 (09:25→16:40)
[2021-07-17] MEDS: ASPIRIN 81 MG CHEWABLE TABLET PO (09:26)
[2021-07-17] MEDS: CARBIDOPA/LEVODOPA 25/250 MG TABLET 1 TABLET PO ×3 (09:26→16:39)
[2021-07-17] MEDS: levETIRAcetam 250 MG TABLET 750 MG PO ×2 (09:26→20:41)
[2021-07-17] MEDS: DIVALPROEX SODIUM DR 250 MG TABEC PO ×2 (09:26→18:37)
[2021-07-17] MEDS: SACCHAROMYCES BOULARDII 250 MG CAPSULE PO ×2 (09:26→16:41)
[2021-07-17] MEDS: PENTOXIFYLLINE 400 MG TABCR PO ×2 (09:26→16:40)
[2021-07-17] MEDS: ATORVASTATIN 40 MG TABLET 80 MG PO (09:26)
[2021-07-17] MEDS: PANTOPRAZOLE 40 MG TABLET PO (09:26)
--- NOTE | 2021-07-17 09:49 | PM.PNNEP ---
Progress Note: A&P Assessment and Plan (1) Acute kidney injury: Code(s): N17.9 - Acute kidney failure, unspecified Status: Acute Assessment and Plan: The patient has acute kidney injury. Renal ultrasound is normal urine sodium is less than 5 total CK is normal most likely this was due to dehydration. creatinine is down to 1.2. (2) Hyponatremia: Code(s): E87.1 - Hypo-osmolality and hyponatremia Status: Acute Assessment and Plan: Sodium level is a little bit on the low side. This is chronic and stable. He is on chronic narcotics and also chronic antidepressants. In addition he is on diuretics. And finally he had traumatic brain injury in the past. Cortisol level is okay. TSH was not done. Will reorder. (3) Healthcare associated bacterial pneumonia: Code(s): J15.9 - Unspecified bacterial pneumonia Status: Acute Assessment and Plan: He is getting broad-spectrum antibiotics. He is getting checked for COVID. (4) Altered mental status: Code(s): R41.82 - Altered mental status, unspecified Status: Acute Assessment and Plan: His mental status is About the same now as it was. (5) Suspected COVID-19 virus infection: Code(s): Z20.822 - Contact with and (suspected) exposure to COVID-19 Status: Acute Assessment and Plan: COVID test is Negative. Subjective Date/time seen: 07/17/21 09:49 Interval history: Patient feels about the same today. Not very verbal. COVID was negative so off isolation Review of Systems Cardiovascular: Cardiovascular: Reports no additional cardiovascular complaints Respiratory: Respiratory: Reports no additional respiratory complaints Gastrointestinal: Gastrointestinal: Reports no additional gastrointestinal complaints Genitourinary: Genitourinary: Reports no additional male genitourinary complaints Exam Narrative: WDWN in NAD skin no rash head ncat lungs clear cor reg no rub abd BS+ nontender and soft ext no edema. Objective Data Vital Signs Vital Signs: Vital Signs - 24 hr 07/16/21 10:08 07/16/21 12:00 07/16/21 12:45 Temperature 36.7 C Pulse Rate 80 Respiratory Rate 12 Blood Pressure 98/54 L Pulse Oximetry 95 94 97 07/16/21 16:00 07/16/21 17:09 07/16/21 17:16 Temperature 36.5 C Pulse Rate 62 Respiratory Rate 14 Blood Pressure 98/66 L Pulse Oximetry 99 100 100 07/16/21 17:17 07/16/21 20:00 07/16/21 20:10 Temperature 36.3 C L Pulse Rate 59 L Respiratory Rate 20 Blood Pressure 91/56 L Pulse Oximetry 98 94 98 07/17/21 00:00 07/17/21 04:00 07/17/21 06:00 Temperature 36.2 C L Pulse Rate 53 L 53 L 49 L Respiratory Rate 18 Blood Pressure 88/67 L Pulse Oximetry 94 07/17/21 09:22 Temperature Pulse Rate Respiratory Rate Blood Pressure Pulse Oximetry 90 Intake/Output Intake/Output: Intake & Output 07/14/21 07/15/21 07/16/21 07/17/21 23:59 23:59 23:59 23:59 Intake Total 3331 550 Output Total 250 1100 Balance 3081 -550 Meds/Results Medications: Active Medications Generic Name Dose Route Start Last Admin Trade Name Freq PRN Reason Stop Dose Admin Albuterol 1 puff 07/15/21 21:59 Albuterol Sulfate (*Sp) Aerosol 1 Puff INHALATION QID PRN shortness of breath or wheezing Albuterol 2 puff 07/16/21 04:00 07/17/21 09:20 Albuterol Sulfate (*Sp) Inhaler INHALATION 2 puff Q4HRT LEONARD Administration Artificial Tears 1 drop 07/15/21 22:11 07/17/21 09:25 Artificial Tears Ophth Soln 15 Ml Bottle EACH EYE 1 drop QID PRN Administration Dry Eye(s) Aspirin 81 mg 07/16/21 12:00 07/17/21 09:26 Aspirin 81 Mg Chewable Tablet PO 81 mg DAILY@0800 LEONARD Administration Atorvastatin Calcium 80 mg 07/17/21 09:00 07/17/21 09:26 Atorvastatin 40 Mg Tablet PO 80 mg DAILY LEONARD Administration Carbidopa/Levodopa 1 tablet 07/16/21
[2021-07-17 10:27] LABS: Partial Thromboplastin Time 41.4 SECONDS (22.3-36.8)
[2021-07-17 11:09] LABS: Thyroid Stimulating Hormone Reflex 0.328 uIU/mL (0.465-4.68)
--- NOTE | 2021-07-17 13:11 | PCRCNOTE ---
Window of time for administration has passed. See next scheduled administration.
[2021-07-17] MEDS: TOPIRAMATE 25 MG TABLET PO (16:41)
[2021-07-17] MEDS: ACETAMINOPHEN 325 MG TABLET 650 MG PO (18:36)
[2021-07-17 18:57] LABS: Free T4 Free Thyroxine Reflex 1.35 ng/dL (0.78-2.19)
[2021-07-17 18:59] LABS: Partial Thromboplastin Time 75.7 SECONDS (22.3-36.8)
--- NOTE | 2021-07-17 20:00 | PC.NURSE ---
This RN called Dr. Walls for pt low blood pressure 88/67 as pt runs soft, but this was softer than normal for him while he is still on fluids. stated okay to watch and continue to monitor.
[2021-07-17 20:29] LABS: Total Triiodothyronine (T3) 0.83 NG/ML (0.97-1.69)
[2021-07-17] MEDS: HEPARIN SOD/D5W 100 UNITS/ML 25,000 UNITS/250 ML BAG 22 UNITS IV CONT (20:48)
[2021-07-17] MEDS: ALBUTEROL SULFATE NEB 2.5 MG/3 ML INH INHALATION (21:22)
[2021-07-18] VITALS (26 sets, daily range): BP systolic 109–120; BP diastolic 61–72; PULSE 58–81; RESP 16–20; TEMP 35.9–36.4; O2SAT 92–99
[2021-07-18] MEDS: ALBUTEROL SULFATE NEB 2.5 MG/3 ML INH INHALATION ×3 (00:15→09:39)
[2021-07-18 01:29] LABS: Partial Thromboplastin Time 64.3 SECONDS (22.3-36.8)
[2021-07-18] MEDS: HEPARIN SODIUM 5,000 UNITS/ML VIAL 4000 UNITS IV PUSH (01:47)
[2021-07-18] MEDS: ERYTHROMYCIN OPHTH OINTMENT 1 GM TUBE 1 APPLIC RIGHT EYE ×5 (05:14→21:01)
[2021-07-18] MEDS: methylPREDNISolone SOD SUCC 125 MG VIAL 60 MG IV PUSH ×3 (05:14→21:01)
[2021-07-18 06:49] LABS: INR 1.4; Prothrombin Time 16.8 Seconds (11.1-14.7)
[2021-07-18 06:53] LABS: Anion Gap 5 mmol/L (8-16); Blood Urea Nitrogen 36 mg/dL (9-20); Calcium 9.1 mg/dL (8.4-10.2); Carbon Dioxide 32 mmol/L (22-30); Chloride 98 mmol/L (98-107); Estimated CRCL calculation 73 ml/min; Estimated Glomerular Filt Rate > 60; Glucose 201 mg/dL (65-110); Potassium 4.4 mmol/L (3.4-5.0); Sodium 135 mmol/L (137-145)
--- NOTE | 2021-07-18 07:36 | PM.EVENT ---
Event Note Event Note Event Note: labs back to normal. will view from a distance.
[2021-07-18] MEDS: HEPARIN SOD/D5W 100 UNITS/ML 25,000 UNITS/250 ML BAG 24 UNITS IV CONT ×2 (07:47→17:48)
--- NOTE | 2021-07-18 08:01 | PM.IMPN ---
Progress Note: A&P Additional Plan START OF DOCTOR SANA?S PROGRESS NOTE Subjective: The patient endorses no complaints at this time. He denies fever, rigors, nausea, vomiting, cough, wheeze, abdominal pain, chest pain, dyspnea, or any other constitutional complaints. I have explained to the patient his current medical condition and plan of care and I have answered all his questions Objective: General: -Alert -No acute distress -No dyspnea -No tachypnea Heart: -Regular rate -Regular rhythm -No murmurs -No gallops -No rubs Lungs: -No wheeze -No rhonchi -No rales Abdomen: -Normal bowel sounds in all four quadrants -No rebound -No guarding -No tenderness Extremities: -2/4 pulse in all four extremities -No clubbing -No cyanosis -No edema Additional Details / Additional Findings / Exceptions / Miscellaneous: Pertinent Laboratory Results / Pertinent Radiology Results / Pertinent Diagnostic Results / Pertinent Vital Signs: Vital signs stable Assessment / Plan: Pneumonia. Azithromycin 500 mg IV daily plus cefepime 2 g IV q.12 hours post vancomycin 1500 mg IV daily plus Proventil HFA: 90 mg per spray: 2+ q.4 hours. Because of history of smoking, Solu-Medrol 60 mg IV q.8 hours Elevated troponin, query NSTEMI. Aspirin 81 mg p.o. daily plus Lipitor 80 mg p.o. q.h.s. plus IV heparin drip per protocol. No beta marla or nitrates due to borderline hypotension. Query whether troponin elevation may be secondary to cardiac strain due to possible pulmonary embolism. Echocardiogram unremarkable Intermediate probability of PE per V/Q scan. IV heparin drip per protocol Coagulopathy. Will monitor PT/INR periodically History of traumatic brain injury Parkinson's disease. Carbidopa/levodopa: 25/250 mg p.o. t.i.d. Dementia Depression. Lexapro 20 mg p.o. daily Anxiety Iron deficiency anemia History of left thyroid nodule. Outpatient monitoring with his primary care physician Chronic pain with opiate dependence. Oxycodone XR 10 mg p.o. q.12 hours Arthritis Seasonal allergies History of right lower extremity DVT. IV heparin drip per protocol Neuropathy. Gabapentin 300 mg p.o. t.i.d. Coronary artery disease, status post [place], status post stent. Lovastatin 20 mg p.o. q.h.s. Obesity. Patient counseled regarding lifestyle modification Peripheral vascular disease. Lovastatin 20 mg p.o. q.h.s. plus Trental 400 mg p.o. b.i.d. History of seizure. Depakote 250 mg p.o. b.i.d. plus Keppra 750 mg p.o. q.12 hours plus Topamax 25 mg p.o. q.h.s. Positive Cologuard test. Outpatient follow-up with gastroenterology upon discharge if he is not already been evaluated Hyperlipidemia. Lovastatin 20 mg p.o. q.h.s. Hyponatremia, chronic, intermittent. Monitor sodium levels intermittently. Acute renal insufficiency. Will monitor creatinine level intermittently. Medical noncompliance. Patient counseled regarding medical compliance including taking his medications as directed GI prophylaxis. Protonix 40 mg p.o. daily DVT prophylaxis. IV heparin drip per protocol Disposition: Patient medically stable for discharge on this day of July 18, 2021 END OF DOCTOR SANA?S PROGRESS NOTE Subjective Date/time seen: 07/18/21 08:01 Objective Data Vital Signs Vital Signs: Vital Signs - 24 hr 07/17/21 09:22 07/17/21 12:00 07/17/21 14:00 Temperature 97.0 F L Pulse Rate 62 64 Respiratory Rate 18 Blood Pressure 118/64 Pulse Oximetry 90 97 07/17/21 16:00 07/17/21 20:00 07/17/21 21:22 Temperature Pulse Rate 59 L 69 64 Respiratory Rate 18 Blood Pressure Pulse Oximetry 91 07/17/21 21:30 07/17/21 21:36 07/18/21 00:00 Temperature 97.3 F L Pulse Rate 64 73 64 Respiratory Rate 18 18 Blood Pressure 114/59 L Pulse Oximetry 94 07/18/21 00:14 07/18/21 00:22 07/18/21 04:00 Temperature Pulse Rate 62 66 79 Respiratory Rate 18 1
[2021-07-18 08:50] LABS: Partial Thromboplastin Time 79.5 SECONDS (22.3-36.8)
[2021-07-18] MEDS: levETIRAcetam 250 MG TABLET 750 MG PO ×2 (09:08→21:01)
[2021-07-18] MEDS: PANTOPRAZOLE 40 MG TABLET PO (09:10)
[2021-07-18] MEDS: GABAPENTIN 300 MG CAPSULE PO ×3 (09:11→17:45)
[2021-07-18] MEDS: ASPIRIN 81 MG CHEWABLE TABLET PO (09:11)
[2021-07-18] MEDS: ATORVASTATIN 40 MG TABLET 80 MG PO (09:12)
[2021-07-18] MEDS: PENTOXIFYLLINE 400 MG TABCR PO ×2 (09:12→17:46)
[2021-07-18] MEDS: CARBIDOPA/LEVODOPA 25/250 MG TABLET 1 TABLET PO ×3 (09:13→17:45)
[2021-07-18] MEDS: SACCHAROMYCES BOULARDII 250 MG CAPSULE PO ×2 (09:14→17:46)
[2021-07-18] MEDS: ESCITALOPRAM OXALATE 10 MG TABLET 20 MG PO (11:24)
[2021-07-18] MEDS: DIVALPROEX SODIUM DR 250 MG TABEC PO ×2 (11:24→17:45)
[2021-07-18] MEDS: ALBUTEROL SULFATE NEB 2.5 MG/0.5 ML INH INHALATION ×2 (14:06→21:48)
--- NOTE | 2021-07-18 14:17 | PC.NURSE ---
On 07/18/21, the student, Vania Cooper [facility], provided care and completed [employer] [facility] [employer] documentation on this patient. I have reviewed the student's documentation and agree with the findings.
[2021-07-18] MEDS: TOPIRAMATE 25 MG TABLET PO (17:47)
[2021-07-19] VITALS (7 sets, daily range): BP systolic 108; BP diastolic 57; PULSE 61–69; RESP 16–18; TEMP 36.3; O2SAT 95
[2021-07-19] MEDS: ALBUTEROL SULFATE NEB 2.5 MG/0.5 ML INH INHALATION ×2 (02:43→09:33)
[2021-07-19] MEDS: HEPARIN SOD/D5W 100 UNITS/ML 25,000 UNITS/250 ML BAG 24 UNITS IV CONT (04:14)
[2021-07-19] MEDS: methylPREDNISolone SOD SUCC 125 MG VIAL 60 MG IV PUSH (05:12)
[2021-07-19] MEDS: ERYTHROMYCIN OPHTH OINTMENT 1 GM TUBE 1 APPLIC RIGHT EYE ×2 (05:12→09:00)
[2021-07-19 07:04] LABS: Partial Thromboplastin Time 64.4 SECONDS (22.3-36.8)
--- NOTE | 2021-07-19 07:39 | PM.IMPN ---
Progress Note: A&P Additional Plan START OF DOCTOR SANA?S PROGRESS NOTE Subjective: The patient endorses no complaints at this time. He denies fever, rigors, nausea, vomiting, cough, wheeze, abdominal pain, chest pain, dyspnea. He indicates that he was at his baseline respiratory status. I have explained to the patient his current medical condition and plan of care and answered all questions Objective: General: -Alert -No acute distress -No dyspnea -No tachypnea Heart: -Regular rate -Regular rhythm -No murmurs -No gallops -No rubs Lungs: -No wheeze -No rhonchi -No rales Abdomen: -Normal bowel sounds in all four quadrants -No rebound -No guarding -No tenderness Extremities: -2/4 pulse in all four extremities -No clubbing -No cyanosis -No edema Additional Details / Additional Findings / Exceptions / Miscellaneous: Pertinent Laboratory Results / Pertinent Radiology Results / Pertinent Diagnostic Results / Pertinent Vital Signs: Vital signs stable Assessment / Plan: Pneumonia. Azithromycin 500 mg IV daily plus cefepime 2 g IV q.12 hours post vancomycin 1500 mg IV daily plus albuterol 2.5 mg nebulized q.6 hours. Because of history of smoking, Solu-Medrol 60 mg IV q.8 hours Elevated troponin, query NSTEMI. Aspirin 81 mg p.o. daily plus Lipitor 80 mg p.o. q.h.s. plus IV heparin drip per protocol. No beta marla or nitrates due to borderline hypotension. Query whether troponin elevation may be secondary to cardiac strain due to possible pulmonary embolism. Echocardiogram unremarkable Intermediate probability of PE per V/Q scan. IV heparin drip per protocol Coagulopathy. Will monitor PT/INR periodically History of traumatic brain injury Parkinson's disease. Carbidopa/levodopa: 25/250 mg p.o. t.i.d. Dementia Depression. Lexapro 20 mg p.o. daily Anxiety Iron deficiency anemia History of left thyroid nodule. Outpatient monitoring with his primary care physician Chronic pain with opiate dependence. Oxycodone XR 10 mg p.o. q.12 hours Arthritis Seasonal allergies History of right lower extremity DVT. IV heparin drip per protocol Neuropathy. Gabapentin 300 mg p.o. t.i.d. Coronary artery disease, status post DC, status post stent. Lovastatin 20 mg p.o. q.h.s. Obesity. Patient counseled regarding lifestyle modification Peripheral vascular disease. Lovastatin 20 mg p.o. q.h.s. plus Trental 400 mg p.o. b.i.d. History of seizure. Depakote 250 mg p.o. b.i.d. plus Keppra 750 mg p.o. q.12 hours plus Topamax 25 mg p.o. q.h.s. Positive Cologuard test. Outpatient follow-up with gastroenterology upon discharge if he is not already been evaluated Hyperlipidemia. Lovastatin 20 mg p.o. q.h.s. Hyponatremia, chronic, intermittent. Monitor sodium levels intermittently. Acute renal insufficiency. Will monitor creatinine level intermittently. Medical noncompliance. Patient counseled regarding medical compliance including taking his medications as directed GI prophylaxis. Protonix 40 mg p.o. daily DVT prophylaxis. IV heparin drip per protocol Disposition: Patient medically stable for discharge on this day of July 19, 2021. Will discuss with case management/social work END OF DOCTOR SANA?S PROGRESS NOTE Subjective Date/time seen: 07/19/21 07:39 Objective Data Vital Signs Vital Signs: Vital Signs - 24 hr 07/18/21 07:45 07/18/21 08:00 07/18/21 09:00 Temperature Pulse Rate 58 L Respiratory Rate Blood Pressure Pulse Oximetry 92 92 07/18/21 09:39 07/18/21 09:49 07/18/21 10:08 Temperature Pulse Rate 76 80 Respiratory Rate 18 18 Blood Pressure Pulse Oximetry 99 98 07/18/21 11:02 07/18/21 11:18 07/18/21 12:00 Temperature 96.7 F L Pulse Rate 71 74 Respiratory Rate 20 Blood Pressure 109/61 Pulse Oximetry 96 92 07/18/21 13:55 07/18/21 14:00 07/18/21 14:09 Temperature 97.4 F L 97.4 F L
[2021-07-19 08:34] LABS: Vancomycin Trough 12.3 ug/mL (10.0-20.0)
[2021-07-19] MEDS: ATORVASTATIN 40 MG TABLET 80 MG PO (08:57)
[2021-07-19] MEDS: CARBIDOPA/LEVODOPA 25/250 MG TABLET 1 TABLET PO (08:57)
[2021-07-19] MEDS: DIVALPROEX SODIUM DR 250 MG TABEC PO (08:57)
[2021-07-19] MEDS: levETIRAcetam 250 MG TABLET 750 MG PO (08:58)
[2021-07-19] MEDS: SACCHAROMYCES BOULARDII 250 MG CAPSULE PO (08:58)
[2021-07-19] MEDS: PANTOPRAZOLE 40 MG TABLET PO (08:59)
[2021-07-19] MEDS: ESCITALOPRAM OXALATE 10 MG TABLET 20 MG PO (08:59)
[2021-07-19] MEDS: GABAPENTIN 300 MG CAPSULE PO (08:59)
[2021-07-19] MEDS: ASPIRIN 81 MG CHEWABLE TABLET PO (08:59)
[2021-07-19] MEDS: PENTOXIFYLLINE 400 MG TABCR PO (10:23)
--- NOTE | 2021-07-19 10:29 | PM.DS ---
DS: Admitting Diagnosis Discharge Date 10:33 a.m. on July 19, 2020 Admitting Diagnosis Pneumonia DS: Summary Hospital Course Hospital Course: See discharge summary below Time Spent with Patient Time attestation: Total time spent providing and/or coordinating discharge services: START OF DOCTOR REAL DISCHARGE SUMMARY Date of Admission: July 15, 2021 Date of Discharge: 10:29 a.m. on July 19, 2021 Primary Diagnosis: Pneumonia Secondary Diagnosis: Elevated troponin, possibly due to cardiac strain from pulmonary embolism. Echocardiogram demonstrated no wall motion abnormalities Intermittent yet probability of PE per V/Q scan Coagulopathy History of traumatic brain injury Parkinson's disease Dementia Depression Anxiety Iron deficiency anemia History of left thyroid nodule Chronic pain with opiate dependence Arthritis Seasonal allergies History of right lower extremity DVT Neuropathy Coronary artery disease, status post [place], status post stent Obesity Peripheral vascular disease History of seizure Documented History of Positive Cologuard test Hyperlipidemia Hyponatremia, chronic, intermittent Acute renal insufficiency, resolved Medical noncompliance Consultations: Nephrology Disposition: The patient will be advised follow-up with his primary care physician 5-7 days post discharge for post hospitalization evaluation as an for ongoing evaluation/monitoring of his history of left thyroid nodule The patient is advised follow-up with Gastroenterology to 4 weeks post discharge for documented history of positive Cologuard test Discharge Medications: Proventil HFA: 90 mg per spray: 1 puff q.i.d. p.r.n. shortness of breath/wheeze Xanax 1 mg p.o. b.i.d. Eliquis 5 mg p.o.: 2 tabs p.o. b.i.d. until 11:59 p.m. on July 26, 2021 then 1 tab p.o. b.i.d. thereafter Carbidopa 25/2 on 50 mg 1 tab p.o. t.i.d. Depakote 250 mg p.o. b.i.d. Lexapro 20 mg p.o. daily Gabapentin 300 mg p.o. t.i.d. Keppra 750 mg p.o. b.i.d. Doxycycline 100 mg p.o. b.i.d.. Query 6. 0 refills Xtampza ER ER 13.5 mg p.o. b.i.d. Trental 400 mg p.o. b.i.d. Topamax 25 mg p.o. q.h.s. Aspirin 81 mg p.o. daily Lipitor 80 mg p.o. q.h.s. Prednisone 10 mg p.o.: 4 tabs daily x3 days then 3 tabs daily x3 days then 2 tabs daily x3 days then 1 tab daily had x3 days. Quantity sufficient. 0 refills Protonix 40 mg p.o. daily. Quantity 15. 0 refills. This being prescribed for GI prophylaxis while the patient is on prednisone and he does not have a history END OF DOCTOR SANA?S DISCHARGE SUMMARY DS: Data Data Completed and Pending Labs on day of discharge: Labs from last 24 hours 07/19/21 07/19/21 06:39 06:39 APTT 64.4 H Vancomycin Trough 12.3 Preliminary micro results at discharge 07/15/21 23:55 Blood Culture - Preliminary Blood 07/15/21 23:56 Blood Culture - Preliminary Blood Discharge Plan Discharge Consulting providers: Rik Gil Discharging Clinician: Dr. Walls Patient Disposition: Home, Self-Care Activity: as tolerated Diet: heart healthy, low sodium, low cholesterol and low fat Discharge Instructions: Per Care Coordination: Home with [facility], RN/PT/OT Evaluation and Treatment. [phone] The patient is advised follow-up with primary care physician 5-7 days post discharge for post hospital visit hospitalization evaluation. Patient will need to continue assessment/monitoring of his history of left thyroid nodule with his primary care physician The patient is advised follow-up with Gastroenterology to 4 weeks post discharge for history of positive Cologuard test Patient Instructions: Antibiotic Form, COPD (Chronic Obstructive Pulmonary Disease) (DC) Stand Alone Forms: General Discharge Information Follow-up/Referrals: Darya Walls DO [Physician]
== END 2021-07-19 11:30 | disposition home health service (06) | DRG 193 ==
LOC: ANHED 14:01 → ANH3MEDSUR 07-16 09:04
PROVIDERS: Internal Medicine; Internal Medicine Nephrology; Admitting Provider Family Medicine; Emergency Provider Emergency Medicine; PCP Emergency Medicine; Visit Provider Internal Medicine
DX: J18.9 Pneumonia, unspecified organism (principal); J96.92 Respiratory failure, unspecified with hypercapnia; E87.1 Hypo-osmolality and hyponatremia; F11.20 Opioid dependence, uncomplicated; G89.4 Chronic pain syndrome; Z20.822 Contact with and (suspected) exposure to COVID-19; N28.9 Disorder of kidney and ureter, unspecified; E04.1 Nontoxic single thyroid nodule; R91.8 Other nonspecific abnormal finding of lung field; R41.82 Altered mental status, unspecified; R79.1 Abnormal coagulation profile; R19.5 Other fecal abnormalities; R77.8 Other specified abnormalities of plasma proteins; I25.10 Atherosclerotic heart disease of native coronary artery without angina pectoris; I25.2 Old myocardial infarction; G20 Parkinson's disease; F02.80 Dementia in other diseases classified elsewhere, unspecified severity, without behavioral disturbance, psychotic disturbance, mood disturbance, and anxiety; R56.9 Unspecified convulsions; F41.8 Other specified anxiety disorders; M19.90 Unspecified osteoarthritis, unspecified site; F17.210 Nicotine dependence, cigarettes, uncomplicated; D50.9 Iron deficiency anemia, unspecified; E78.5 Hyperlipidemia, unspecified; I73.9 Peripheral vascular disease, unspecified; E66.9 Obesity, unspecified; J30.2 Other seasonal allergic rhinitis; G62.9 Polyneuropathy, unspecified; Z79.01 Long term (current) use of anticoagulants; Z86.718 Personal history of other venous thrombosis and embolism; Z87.820 Personal history of traumatic brain injury; Z91.19 Patient's noncompliance with other medical treatment and regimen; Z95.5 Presence of coronary angioplasty implant and graft
CPT/HCPCS: 36415; 36600; 71045; 76775; 78580; 80048; 80053; 80069; 80202; 80307; 81001; 82533; 82550; 82570; 82805; 83880; 84156; 84300; 84439; 84443; 84480; 84484; 85025; 85380; 85610; 85730; 87040; 93005; 93306; 94640; 97110; 97116; 97161; 97165; 99285; A9270; A9540; C9803; J0456; J0692; J1644; J2930; J3370; J7030; U0003; U0005

== ENCOUNTER 2021-08-01 10:12 | Emergency (ER) | payer MEDICARE, SELFPAY ==
[2021-08-01] VITALS (15 sets, daily range): BP systolic 96–121; BP diastolic 62–70; PULSE 67–78; RESP 15–26; TEMP 36.2; O2SAT 95–100
[2021-08-01 10:58] LABS: Basophils Percent Auto 0.3 % (0.2-1.2); Eosinophils Absolute Auto 0.2 K/mm3 (0-0.3); Eosinophils Percent Auto 1.9 % (0-4.4); Hematocrit 38.1 % (42.0-52.0); Hemoglobin 11.8 g/dL (14.0-18.0); Immature Granulocyte Absolute 0.11 K/mm3 (0.00-0.031); Immature Granulocyte Percent A 1.3 % (0-0.5); Mean Corpuscular Hemoglobin 30.7 pg (26-34); Mean Corpuscular Volume 99.2 fl (80-100); Mean Platelet Volume 9.3 fl (7.4-10.4); Monocytes Absolute Auto 0.6 K/mm3 (0.1-0.6); Monocytes Percent Auto 7.3 % (2.6-8.5); Neutrophils Absolute Auto 5.2 K/mm3 (1.3-6.7); Neutrophils Percent Auto 60.2 % (45.5-73.1); Platelet Count Result 119 k/mm3 (150-375); Red Blood Count 3.84 M/mm3 (4.6-6.20); Red Cell Distribution Width 16.1 % (11.5-14.5); White Blood Count 8.6 K/mm3 (4.5-10.0)
[2021-08-01 11:20] LABS: Alanine Aminotransferase 8 U/L (4-50); Albumin Level 3.4 g/dL (3.5-5.1); Alkaline Phosphatase 151 U/L (38-126); Aspartate Amino Transferase 19 U/L (17-59); Bilirubin,Total 1.1 mg/dL (0.2-1.3); Blood Urea Nitrogen 10 mg/dL (9-20); Calcium 8.6 mg/dL (8.4-10.2); Carbon Dioxide > 40 mmol/L (22-30); Chloride 86 mmol/L (98-107); Estimated CRCL calculation 87 ml/min; Estimated Glomerular Filt Rate > 60; Glucose 157 mg/dL (65-110); Sodium 133 mmol/L (137-145)
--- NOTE | 2021-08-01 11:44 | PC.NURSE ---
Pt states his doctor stated that his potassium was low and he needed to get potassium,pt denies SOB,chest pain,headache,
[2021-08-01] MEDS: POTASSIUM CHLORIDE 20 MEQ TABLET 40 MEQ PO (11:58)
[2021-08-01 12:12] LABS: Alveolar/Arterial O2 Gradient 27.7 mmHg; Base Excess ABG 10.4 mEq/l (+/-2.0); Carboxyhemoglobin 3.7 % THb (0-2.0); Fractional Inspired Oxygen 21 %; HCO3 ABG 37.2 mEq/l (22.0-26.0); Methemoglobin ABG 0.2 %THb (0-1.5); Oxygen Content ABG 13.8 %vol (16.0-22.0); PO2 ABG 50.1 mmHg (80.0-100.0); PO2 FiO2 Ratio Arterial Blood 2.39 %; Reduced Hemoglobin 18.1 %THb (0-5.0); Total Hemoglobin 12.6 g/dL (12.0-18.0); pH ABG 7.409 (7.350-7.450)
[2021-08-01 12:15] LABS: Device ROOM AIR; Modified Allen's Test Pass; Oxygen Saturation ABG 84.7 % (95.0-100.0); PCO2 ABG 60.1 mmHg (35.0-45.0); Site Drawn LEFT RADIAL
--- NOTE | 2021-08-01 12:43 | ED.RECABL ---
HPI - Recheck/Abnormal Lab/Rx General Chief Complaint: Recheck/Abnormal Lab/Rx Stated Complaint: Low Potassium Time Seen by Provider: 08/01/21 11:43 History of Present Illness HPI narrative: Patient is a 56-year-old male who presents ER with reports of critically low potassium. Reports he had an outpatient lab performed 2 days ago that showed a low potassium he was told by his PCP that he required IV infusion. Patient denies muscle weakness or cramps. No new fevers or chills or sweats. No fatigue. Reports compliance with home medication which is provided to him by caregiver. It appears he is on Lasix chronically. He does not take any potassium supplementation. Related Data Home Medications Medication Instructions Recorded Confirmed alprazolam 1 mg PO BID 09/23/19 07/15/21 carbidopa-levodopa 1 tablet PO TID 09/23/19 07/15/21 divalproex 250 mg PO BID 09/23/19 07/15/21 escitalopram oxalate 20 mg PO DAILY 09/23/19 07/15/21 gabapentin 300 mg PO TID 09/23/19 07/15/21 levetiracetam 750 mg PO BID 09/23/19 07/15/21 pentoxifylline 400 mg PO BID 09/23/19 07/15/21 topiramate 25 mg PO QPM 09/23/19 07/15/21 Xtampza ER 13.5 mg PO BID 05/01/21 07/15/21 Allergies Allergy/AdvReac Type Severity Reaction Status Date / Time No Known Allergies Allergy Verified 07/05/21 14:37 Review of Systems Review of Systems: All systems reviewed & are unremarkable except as noted in HPI and below Constitutional: Constitutional: Denies chills, Denies fever(s) and Denies weakness ENT: Denies nasal congestion and Denies sore throat Cardiovascular: Cardiovascular: Denies chest pain, Denies rapid heart rate and Denies radiating jaw, neck or arm pain Respiratory: Respiratory: Denies cough and Denies dyspnea Gastrointestinal: Gastrointestinal: Denies diarrhea, Denies nausea and Denies vomiting Neurologic: Denies focal weakness and Denies numbness PMFSH Past Medical History Medical History Arthritis Chronic pain syndrome Chronic seasonal allergic rhinitis Current use of [facility] anticoagulation Deep vein thrombosis of right lower limb (~04/2019) Extensive, occlusive DVT from the right common femoral vein through the peroneal and posterior tibial veins. Attempted angioplasty was unsuccessful and he was transferred to [place] for further and intervention. Now on long-term anticoagulation with Eliquis. Dementia Depression with anxiety Impetigo (~09/2019) Iron deficiency anemia Left thyroid nodule Noted on CT in April 2019. 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 Obesity (BMI 30.0-34.9) Parkinson disease Peripheral vascular disease Positive colorectal cancer screening using Cologuard test Seizures Traumatic brain injury Wrist fracture Surgical History Surgical History History of coronary artery stent placement History of mastoidectomy With resultant mild, chronic hearing loss. History of tonsillectomy Family History Family History Mother Cervical cancer Skin cancer Social History Social History Social History: The patient lives in his own home in [place] but he has been staying with his mother recently after the of his father. He ambulates with a walker and has a friend come to the house daily to help with chores, etc. He smoked just about a pack of cigarettes per day since he was a teenager and now smokes maybe a few cigarettes a day. No alcohol or illicit substance use. He designates his friend, Maryse Garcia, as his surrogate decision maker and he wishes to be a full code. Smoking packs per day: 0.5 Smoking cigarettes per day: 10.0 Years smoked: 40 Smoking pack-years
== END 2021-08-01 13:27 | disposition home or self-care (01) ==
PROVIDERS: Emergency Medicine; Emergency Provider Emergency Medicine; PCP Emergency Medicine
DX: E87.6 Hypokalemia (principal); T50.2X5A Adverse effect of carbonic-anhydrase inhibitors, benzothiadiazides and other diuretics, initial encounter; M19.90 Unspecified osteoarthritis, unspecified site; G89.4 Chronic pain syndrome; F03.90 Unspecified dementia, unspecified severity, without behavioral disturbance, psychotic disturbance, mood disturbance, and anxiety; D50.9 Iron deficiency anemia, unspecified; I25.2 Old myocardial infarction; G20 Parkinson's disease; I73.9 Peripheral vascular disease, unspecified; E66.9 Obesity, unspecified; Z68.30 Body mass index [BMI] 30.0-30.9, adult; Z87.820 Personal history of traumatic brain injury; Z86.718 Personal history of other venous thrombosis and embolism; F41.8 Other specified anxiety disorders; Z79.01 Long term (current) use of anticoagulants; F17.210 Nicotine dependence, cigarettes, uncomplicated
CPT/HCPCS: 36415; 36600; 80053; 82375; 82805; 83050; 85025; 99283; A9270

== ENCOUNTER 2021-09-25 09:46 | Outpatient (CLI) | payer MEDICARE, SELFPAY ==
--- NOTE | ~2021-09-25 | XR_ITS ---
EXAMINATION: XR chest 2V DATE: 09/25/2021 10:03 INDICATION: Pneumonia, shortness of breath TECHNIQUE: AP and lateral views of the chest are obtained. COMPARISON: 07/15/2021 FINDINGS: Cardiomegaly is noted. There are small pleural effusions. A mild diffuse interstitial patte rn is present. There is chronic atelectasis of the left lung base. No or pneumothorax is identified. There is mild thoracic spondylosis. A chronic L1 compression fracture is noted. IMPRESSION: 1. Cardiomegaly with mild pulmonary edema. 2. Small pleural effusions. Reviewed, dictated and finalized at location A. 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
== END 2021-09-25 09:47 | disposition home or self-care (01) ==
LOC: ANHIMG 09:47
PROVIDERS: PCP Emergency Medicine; Visit Provider Emergency Medicine
DX: J18.9 Pneumonia, unspecified organism (principal); I51.7 Cardiomegaly; J90 Pleural effusion, not elsewhere classified; J81.1 Chronic pulmonary edema; M47.814 Spondylosis without myelopathy or radiculopathy, thoracic region; M48.56XA Collapsed vertebra, not elsewhere classified, lumbar region, initial encounter for fracture
CPT/HCPCS: 71046